=== PATIENT | female | born 1955 | race Two or more races ===

== ENCOUNTER → 2024-09-18 | Outpatient (CLI) | payer OTHER, MEDICAID, SELFPAY | END | disposition home or self-care (01) | PROVIDERS: PCP Family Medicine; Referring Provider Family Medicine; Visit Provider Student in an Organized Health Care Education/Training Program | DX: L97.512 Non-pressure chronic ulcer of other part of right foot with fat layer exposed (principal); L89.624 Pressure ulcer of left heel, stage 4; S91.104D Unspecified open wound of right lesser toe(s) without damage to nail, subsequent encounter; X58.XXXD Exposure to other specified factors, subsequent encounter; E11.52 Type 2 diabetes mellitus with diabetic peripheral angiopathy with gangrene; M86.8X7 Other osteomyelitis, ankle and foot; G20.A1 Parkinson's disease without dyskinesia, without mention of fluctuations; I73.9 Peripheral vascular disease, unspecified; Z89.421 Acquired absence of other right toe(s) | CPT/HCPCS: 11044; A9270 ==

== ENCOUNTER → 2024-10-09 | Outpatient (CLI) | payer OTHER, MEDICAID, SELFPAY | END | disposition home or self-care (01) | LOC: SWHD 08:31 | PROVIDERS: PCP Family Medicine; Referring Provider Family Medicine; Visit Provider Student in an Organized Health Care Education/Training Program | DX: L89.624 Pressure ulcer of left heel, stage 4 (principal); S91.104D Unspecified open wound of right lesser toe(s) without damage to nail, subsequent encounter; X58.XXXD Exposure to other specified factors, subsequent encounter; E11.52 Type 2 diabetes mellitus with diabetic peripheral angiopathy with gangrene; I10 Essential (primary) hypertension; M86.8X7 Other osteomyelitis, ankle and foot; G20.A1 Parkinson's disease without dyskinesia, without mention of fluctuations; I73.9 Peripheral vascular disease, unspecified; Z89.421 Acquired absence of other right toe(s) | CPT/HCPCS: 11044; A9270 ==

== ENCOUNTER → 2024-10-16 | Outpatient (CLI) | payer OTHER, MEDICAID, SELFPAY | END | disposition home or self-care (01) | PROVIDERS: PCP Family Medicine; Referring Provider Family Medicine; Visit Provider Student in an Organized Health Care Education/Training Program | DX: L89.624 Pressure ulcer of left heel, stage 4 (principal); S91.104D Unspecified open wound of right lesser toe(s) without damage to nail, subsequent encounter; X58.XXXD Exposure to other specified factors, subsequent encounter; E11.52 Type 2 diabetes mellitus with diabetic peripheral angiopathy with gangrene; I10 Essential (primary) hypertension; M86.8X7 Other osteomyelitis, ankle and foot; G20.A1 Parkinson's disease without dyskinesia, without mention of fluctuations; I73.9 Peripheral vascular disease, unspecified; Z89.421 Acquired absence of other right toe(s) | CPT/HCPCS: 11042; A9270 ==

== ENCOUNTER 2024-10-20 09:45 | Day surgery (SDC) | payer OTHER, MEDICAID, SELFPAY ==
--- NOTE | 2024-10-19 07:00 | EKG_ITS ---
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
[2024-10-19 08:31] VITALS: BMI 23.7
[2024-10-19 10:31] LABS: Collection Type, Urine Clean Catch
[2024-10-19 10:58] LABS: Basophils # (Auto) 0.1 Thou/mm3 (0.0-0.2); Basophils % (Auto) 1 % (0-2.5); Eosinophils # (Auto) 0.3 Thou/mm3 (0.0-0.5); Eosinophils % (Auto) 2 % (0-10); Hematocrit 33.2 % (36.0-46.0); Hemoglobin 10.2 g/dL (12.0-16.0); Immature Granulocytes % (Auto) 1 % (0-0); Immature Granulocytes Auto 0.12 Thou/mm3 (0.00-0.00); Lymphocytes % (Auto) 26 % (10-50); Mean Corpuscular HGB Conc 30.7 g/dl (31.0-37.0); Mean Corpuscular Hemoglobin 26.6 pg (25.0-35.0); Mean Corpuscular Volume 87 fL (80-100); Monocytes # (Auto) 0.8 Thou/mm3 (0.0-0.8); Monocytes % (Auto) 7 % (0-12); Neutrophils # (Auto) 7.2 Thou/mm3 (1.8-7.7); Neutrophils % (Auto) 63 % (37-80); Nucleated Red Blood Cell % 0 /100 WBC (0); Platelet Count 493 Thou/mm3 (140-440); RDW Standard Deviation 63.5 fL (36.4-46.3); Red Blood Count 3.84 Miln/mm3 (4.00-5.20); White Blood Count 11.5 Thou/mm3 (3.6-11.0)
[2024-10-19 11:24] LABS: Alanine Aminotransferase < 7 U/L (10-49); Albumin, Serum 3.5 gm/dL (3.4-4.8); Albumin/Globulin Ratio 1.3 (1.2-2.2); Alkaline Phosphatase 121 U/L (46-116); Anion Gap 7 (7-16); Aspartate Amino Transferase 11 U/L (0-34); BUN/Creatinine Ratio 20 Ratio (12-20); Bilirubin,Total 0.2 mg/dL (0.3-1.2); Blood Urea Nitrogen 18 mg/dL (9-23); Calcium 8.7 mg/dL (8.3-10.6); Calcium (Corrected) 9.1 mg/dL (8.5-10.1); Carbon Dioxide 26.9 mMol/L (20.0-31.0); Chloride 105 mMol/L (98-107); Creatinine (Component) 0.9 mg/dL (0.6-1.3); Estimated Creatinine Clearance 48.1 mL/min (>60); Globulin 2.8 gm/dL (2.3-3.5); Glucose 100 mg/dL (74-106); Osmolality,Calculated 279 (275-295); Potassium 3.7 mMol/L (3.4-5.1); Sodium 139 mMol/L (136-145); Total Protein 6.3 gm/dL (5.7-8.2); eGFR > 60 See Note
[2024-10-19 12:12] LABS: Bacteria,Urine 1+; Bilirubin,Urine Negative (Negative); Blood,Urine 1+ (Negative); Budding Yeast,Urine Present; Color,Urine Yellow (Lt Yel-Yel); Glucose, Urine Negative (Negative); Hyaline Casts,Urine < 1 /hpf (0-1); Ketones,Urine Negative (Negative); Leukocyte Esterase,Urine Positive (Negative); Nitrite,Urine Negative (Negative); PH,Urine 6.5 (5.0-7.0); Protein,Urine 1+ (Neg - Trace); RBC,Urine 19 /hpf (0-3); Specific Gravity,Urine 1.018 (1.001-1.035); Squamous Epithelial Cell,Urine 3 /hpf (0-5); Urobilinogen,Urine Negative mg/dL (0.0-1.0); WBC,Urine 648 /hpf (0-5)
[2024-10-19 12:19] LABS: Clarity,Urine Hazy (Clear/Hazy)
--- NOTE | 2024-10-19 15:12 | ESHP_ITS ---
RE: KEO KIRAN : 1955 DATE OF ADMISSION: 10/23/2024 HISTORY OF PRESENT ILLNESS: The patient is a 69-year-old female. She has a left ureteral stent in place. She has a 6 mm stone in the left ureter. She is a Slovenian-speaking female and she had a stone in the left ureter. She had a stent placed in [place]. PAST SURGICAL HISTORY: She had a hernia operation in the past, stomach operation in the past, and left breast surgery for a mass. SOCIAL HISTORY: She has 2 children. ALLERGIES: NONE KNOWN. PAST MEDICAL HISTORY: She has a history of diabetes mellitus and history of hypertension. LABORATORY DATA: Her serum creatinine is 0.9. A KUB film revealed left ureteral stent with a 6 mm stone in the upper part of the left ureter. MEDICATIONS: She takes: 1. Statin medication. 2. Januvia. 3. Metformin. 4. Sinemet. 5. Cymbalta. 6. Thyroid medication. 7. Pantoprazole. PHYSICAL EXAMINATION: HEENT: Normal. NECK: Supple. LUNGS: Clear. HEART: Sounds are normal. ABDOMEN: Soft without any organomegaly. No guarding. No rigidity. EXTREMITIES: Normal. IMPRESSION: 1. Left ureteral stone. 2. Left ureteral stent. PLAN: ESWL for left upper ureteral 6 mm stone. Planned procedure, risks and complications have been discussed with the patient. The patient understood them and agreed to proceed. DT: 12:21:05 TT: 15:11:00 Ref: [id number] - TID: [id number]
--- NOTE | 2024-10-20 06:00 | XR_ITS ---
Examination: Abdomen AP single view Technique: AP portable supine abdomen, single view Exam date and time: October 20, 2024 1038 hours INDICATIONS: Preop lithotripsy for kidney stones FINDINGS: Left ureteral stent satisfactory position Abundant stool overlies the kidneys Assessment for renal calculi difficult Prominent osteopenia IMPRESSION: Left ureteral stent satisfactory position
[2024-10-20 10:08] VITALS: BP 144/58; PULSE 58; RESP 14; TEMP 36.2; O2SAT 99; BMI 23.4
--- NOTE | 2024-10-20 10:50 | CHAP ---
Patient expressed gratitude for prayer before their procedure.
--- NOTE | 2024-10-20 13:00 | SUR.PREOP ---
C/O chest pain per Roseline BAEZA. Pt's states she has acid reflux that causes her chest pain. Patient points to epigastric area when asked where her pain is located. Jacobo GREEN and Gertrude BAEZA made aware. Jacobo in to assess patient.
[2024-10-20 13:38] VITALS: BP 210/89; PULSE 65; RESP 12; TEMP 36.2; O2SAT 99
--- NOTE | 2024-10-20 13:38 | SUR.PHASEII ---
pt received from OR in recovery bay 1. pt case was cancelled due to abnormal v/s. pt awake and alert, breathing unlabored on room air. pt b/p elevated, c/o chest pain. report received from Jacobo GREEN and Gertrude BAEZA. Jacobo GREEN did not want to treat elevated blood pressure, Dr. Dahl did not want to admit pt. Was instructed to by Jacobo GREEN to discharge pt and take them to ER.
[2024-10-20 13:45] VITALS: BP 214/74; PULSE 61; RESP 14; TEMP 36.3; O2SAT 100
[2024-10-20 13:50] VITALS: BP 216/103; PULSE 75; RESP 15; TEMP 36.3; O2SAT 100
[2024-10-20 14:00] VITALS: BP 206/80; PULSE 66; RESP 12; TEMP 36.4; O2SAT 99
--- NOTE | 2024-10-20 14:20 | SUR.PHASEII ---
pt awake and alert, breathing unlabored on room air. pt has elevated b/p, c/o chest pain. pt able transfer to wheelchair. instructed to leave iv in after discharge by charge nurse Roseline. pt will be transferred to ER in wheelchair after d/c.
--- NOTE | 2024-10-20 20:46 | ESOP_ITS ---
RE: KEO KIRAN : 1955 DATE OF OPERATION: 10/20/2024 PREOPERATIVE DIAGNOSIS: Left renal stone. The patient has a left ureteral stent in place. POSTOPERATIVE DIAGNOSIS: Left renal stone. The patient has a left ureteral stent in place. INDICATION: The patient is a 69-year-old female who has a left renal stone about 6 mm in size. The patient had a left ureteral stent placed. She was brought into the operating room. At this point, the patient's screw down is Yo Cuevas, he was concerned about her blood pressure, which is 220 systolic. The patient had a history of some chest pain in the past and he was uncomfortable doing this case, so the case was canceled. The patient would be referred back to her primary care for better control of her blood pressure and possible cardiac clearance. DT: 13:46:01 TT: 20:45:00 Ref: [id number] - TID: [id number]
== END 2024-10-20 14:20 | disposition home or self-care (01) ==
PROVIDERS: Anesthesiology; PCP Nurse Practitioner Family; Referring Provider Surgery; Visit Provider Surgery
PROC: (CPT 50590; principal; 2024-10-20 11:15)
DX: N20.1 Calculus of ureter (principal); E11.9 Type 2 diabetes mellitus without complications; I10 Essential (primary) hypertension; Z53.9 Procedure and treatment not carried out, unspecified reason; Z01.810 Encounter for preprocedural cardiovascular examination
CPT/HCPCS: 50590; 36415; 74018; 80053; 81001; 85025; 93005; J2250; J2704; J3010; J3490; J1596

== ENCOUNTER 2024-10-20 14:26 | Emergency (ER) | payer OTHER, MEDICAID, SELFPAY ==
[2024-10-20 14:46] VITALS: BP 165/84; PULSE 80; RESP 18; TEMP 36.9; O2SAT 99; BMI 23.3
--- NOTE | 2024-10-20 14:51 | PD.EDADULT ---
ED General RME/HPI General Chief complaint: Chest Pain Stated complaint: HIGH B/P, CHEST PAIN , LEFT FOOT WOUND Time Seen by Provider: 10/20/24 14:42 Arrival date/time: 10/20/24 14:26 69-year-old female presents to the emergency department today patient was scheduled to have surgery today with Dr. Dahl patient reports she was found to have elevated blood pressure and therefore her surgery was canceled and she was sent to the ER for further evaluation. Patient reports no chest pain no shortness of breath no headache dizziness or weakness. Patient does report left foot pain because she has been unable to take her [place] today for her chronic left foot pain Limitations: no limitations Related Data Home Medications ?Medication ?Instructions ?Recorded ?Confirmed atorvastatin 10 mg tablet 10 mg PO QDAY 10/19/24 10/19/24 carvedilol 3.125 mg tablet 3.125 mg PO BID 10/19/24 10/19/24 duloxetine 20 mg capsule,delayed 20 mg PO DAILY 10/19/24 10/19/24 release sprinkle ferrous sulfate 325 mg (65 mg 325 mg PO QDAY 10/19/24 10/19/24 iron) tablet (Iron (ferrous sulfate)) gabapentin 600 mg tablet 600 mg PO BID 10/19/24 10/19/24 levodopa 100 mg tablet 100 mg PO TID 10/19/24 10/19/24 sitagliptin phosphate 25 mg tablet 25 mg PO QDAY 10/19/24 10/19/24 (Januvia) Previous Rx's ?Medication ?Instructions ?Recorded levothyroxine 88 mcg capsule 88 mcg PO QDAY #30 caps 12/03/23 metformin 1,000 mg tablet 1,000 mg PO BID #60 tabs 12/03/23 pantoprazole 40 mg tablet,delayed 40 mg PO QDAY #30 tabs 12/03/23 release (Protonix) Allergies Allergy/AdvReac Type Severity Reaction Status Date / Time No Known Allergies Allergy Verified 10/20/24 14:27 Review of Systems Review of Systems Systems Reviewed: All systems reviewed, normal except as documented Constitutional Constitutional: Reports system reviewed and no additional complaints, except as documented, Denies fever(s) and Denies headache(s) Eyes Eyes: Reports system reviewed and no additional complaints, except as documented and Denies blurry vision ENT Ears, Nose, Mouth, and Throat: Reports system reviewed and no additional complaints, except as documented, Denies headache(s), Denies nasal congestion and Denies nasal discharge Cardiovascular Cardiovascular: Reports system reviewed and no additional complaints, except as documented, Denies chest pain and Denies dyspnea Respiratory Respiratory: Reports system reviewed and no additional complaints, except as documented, Denies chest congestion, Denies cough and Denies dyspnea Gastrointestinal Gastrointestinal: Reports system reviewed and no additional complaints, except as documented and Denies abdominal pain Musculoskeletal Musculoskeletal: Reports system reviewed and no additional complaints, except as documented, Reports abnormal gait, Reports arthralgias and Denies deformity Integumentary/Breasts Skin/Breast: Reports system reviewed and no additional complaints, except as documented and Denies rash Neurologic Neurologic: Reports system reviewed and no additional complaints, except as documented, Reports as per HPI, Reports abnormal gait and Denies headache(s) Past Medical History Past Medical History NEUROLOGIC: Positive Neurological Disorders and Parkinson's Disease; Negative Seizures CARDIAC: Positive Cardiac Disorders, Hypercholesterolemia and Hypertension; Negative Angina, Coronary Artery Disease, Atherosclerotic Heart Disease or Congestive Heart Failure RESPIRATORY: Negative Chronic Obstructive Pulmonary Disease (COPD), Asthma, Pneumonia, Tuberculosis or Sleep Apnea GASTROINTESTINAL: Positive Gastrointestinal Disorders, Gastrointestinal Bleed and Gastroesophageal Reflux Disease; Negative Hepatitis GENITOURINARY: Positive Genitourinary Disorders and Kidney Stones; Negative Renal Disease REPRODUCTIVE: Positive Previous Pregnancies MUSCULOSKELETAL: Positive Musculoskeletal Disorders and Arthritis ENT: Positive Cataracts ENDOCRINE: Positive Endocrine Disorders, Diabetes Mellitus Type 2 and Hypothyroidism; Negative Diabetes Mellitus Type 1 HEMATOLOGIC: Positive Blood Disorders and Anemia; Negative Sickle Cell Disease PSYCHO/SOCIAL: Positive Depression and Anxiety OTHER HISTORY: Positive Hospitalization (Sepsis), Falls, Blood Transfusions, Chicken Pox and Measles; Negative Autoimmune Disease, Blood Transfusion Reaction, Anesthesia Reactions, Chemotherapy, Radiation Therapy or Cancer Family History FAMILY HISTORY: Positive Family Cardiac Disorders and Family Surgery; Negative Family Psychiatric Problems, Family Respiratory Disorders, Family Gastrointestinal Problems, Family Cancer or Family Anesthesia Reaction Surgical History SURGICAL: Positive Bowel Surgery (colon resection); Negative Cardiac Surgery, Coronary Artery Bypass Graft, Ear Surgery or Joint Replacement Social History SMOKING STATUS: Never smoker SECOND HAND EXPOSURE: No SUBSTANCE USE: does not use ED Exam General Limitations: Present no limitations General appearance: Present alert and in no apparent distress Head Head exam: Present atraumatic Eye Eye exam: Present normal appearance, PERRL and EOMI ENT ENT exam: Present normal exam, normal oropharynx and mucous membranes moist Neck Neck exam: Present normal inspection, full ROM and trachea midline Chest Chest inspection: Present normal inspection and symmetric chest wall rise Respiratory Respiratory exam: Present normal lung sounds bilaterally Cardiovascular Cardiovascular exam: Present regular rate, normal rhythm and normal heart sounds Abdominal Exam Abdominal exam: Present soft and normal bowel sounds Extremities Exam Extremities exam: Present full ROM, tenderness, normal capillary refill and other (Left foot pain); Absent joint swelling Back Exam Back exam: Present normal inspection and full ROM Neurological Exam Neurological exam: Present alert, oriented X3 and CN II-XII intact Psychiatric Psychiatric exam: Present normal affect and normal mood Skin Skin exam: Present warm, dry and other (Wound left foot) Course Quality Measures none Orders Category Date Time Status HYDROcodone*/APAP 5/325 [Anamosa 5/325] Med 10/20/24 14:51 Discontinued 1 tab PO X1 ONE Ketorolac Inj [Toradol Inj] Med 10/20/24 14:51 Discontinued 30 mg IVP X1 ONE Vital Signs Vital signs: Vital Signs Temperature 98.5 F 10/20/24 14:46 Pulse Rate 80 10/20/24 14:46 Respiratory Rate 18 10/20/24 14:46 Blood Pressure 165/84 H 10/20/24 14:46 Pulse Oximetry (%) 99 10/20/24 14:46 Oxygen Delivery Method Room Air 10/20/24 14:46 O2 saturation 99% room air within normal limits MDM Patient data External records reviewed:: [facility] previous records Clinical information provided by:: patient Social determinants that could affect healthcare access:: none Patient has the following chronic illnesses:: See history How is presenting disease/condition affected by chronic disease/condition?: caused by Evaluation data The following diagnostics were reviewed and interpreted by me:: other (specify) (N/A) Lab and/or radiology exams considered but not ordered:: Consider not ordered Interpretation Summary: N/A Medications Medications considered but not ordered:: Given Medication administrations:: Medication Administration History Discontinued Medications Hydrocodone Bitart/Acetaminophen (Hydrocodone/Apap 5/325 Tablet) 1 tab PO X1 ONE Stop: 10/20/24 14:52 Last Admin: 10/20/24 14:58 Dose: 1 tab Documented By: RD Ketorolac Tromethamine (Ketorolac Inj 30 Mg/Ml Vial) 30 mg IVP X1 ONE Stop: 10/20/24 14:52 Last Admin: 10/20/24 14:58 Dose: 30 mg Documented By: RD Given Consultations Consultation(s) initiated? (list below): No Diagnosis Differential Diagnosis ED Complaint MDM: Elevated blood pressure, osteomyelitis, cellulitis Most likely diagnosis given after review of the tests above:: Foot pain chronic Admission Indicated Admission indicated?: not indicated Explain why admission is indicated or not indicated:: No criteria Admission Request Was there a request for admission?: No Disposition Plan Disposition Plan: Discharge Discharge Attestation Discharge Attestation: The patient and all family members were given an opportunity to ask questions and understood the discharge instructions. Discharge instructions specifically effects, indications for sooner follow up or return to the emergency department, and the expected course of current diagnosis. Patient condition: Stable Medical Decision Making MDM Narrative MDM Narrative: 69-year-old female presents to the emergency department today patient was scheduled to have surgery today with Dr. Dahl patient reports she was found to have elevated blood pressure and therefore her surgery was canceled and she was sent to the ER for further evaluation. Patient reports no chest pain no shortness of breath no headache dizziness or weakness. Patient does report left foot pain because she has been unable to take her [place] today for her chronic left foot pain On exam patient well-appearing patient is sad as she is unable to have her surgery and patient reports left foot pain as she has been unable to take her pain medication today I did ask the charge nurse to contact the surgical department as the patient's blood pressure is not dangerously high patient's blood pressure 165/84 they stated that her surgery was canceled Patient given a dose of pain medication and discharged home Patient reports she will follow-up with her specialist for her foot Patient discharged home in no distress to follow-up with primary care doctor in the next 24 to 48 hours and for any worsening symptoms to return to the ER immediately Differential Diagnosis Differential Diagnosis: Elevated blood pressure, osteomyelitis, cellulitis Medical Records Medical records reviewed: Yes I reviewed the patient's medical records. Discharge Plan Plan Patient Disposition: HOME (Self Care) Disposition Comment: Stable Prescriptions/Referrals Prescriptions/Med Rec: No Action pantoprazole [Protonix] 40 mg tablet,delayed release (DR/EC) 40 mg PO QDAY Qty: 30 0RF metformin 1,000 mg tablet 1,000 mg PO BID Qty: 60 0RF levothyroxine 88 mcg capsule 88 mcg PO QDAY Qty: 30 0RF gabapentin 600 mg Tablet 600 mg PO BID atorvastatin 10 mg Tablet 10 mg PO QDAY carvedilol 3.125 mg tablet 3.125 mg PO BID ferrous sulfate [Iron (ferrous sulfate)] 325 mg (65 mg iron) Tablet 325 mg PO QDAY Januvia 25 mg Tablet 25 mg PO QDAY duloxetine 20 mg Capsule, Delayed Rel Sprinkle 20 mg PO DAILY levodopa 100 mg Tablet 100 mg PO TID Problem List Clinical Impression: Chronic pain Patient/Caregiver Discharge Instructions Education Materials: ED Chronic Pain Additional Instructions: Please follow up with your primary care doctor in the next 24-48hrs for any worsening symptoms return here immediately Print Language: Beninese Stand Alone Forms: Marilyn Award Info., Patient Portal Info Letter PA/[employer] Supervising Physician PA/[employer] Supervising Physician: Dr. todd
[2024-10-20] MEDS: HYDROcodone/APAP 5/325 TABLET 1 TAB PO (14:58)
[2024-10-20] MEDS: KETOROLAC INJ 30 MG/ML VIAL IVP (14:58)
== END 2024-10-20 15:15 | disposition home or self-care (01) ==
LOC: SERX 15:30
PROVIDERS: Emergency Provider Emergency Medicine; PCP Nurse Practitioner Family
DX: G89.29 Other chronic pain (principal)
CPT/HCPCS: 96374; 99284; J1885; A9270

== ENCOUNTER → 2024-10-23 | Outpatient (CLI) | payer OTHER, MEDICAID, SELFPAY | END | disposition home or self-care (01) | LOC: SWHD 08:40 | PROVIDERS: PCP Family Medicine; Referring Provider Family Medicine; Visit Provider Surgery | DX: L89.624 Pressure ulcer of left heel, stage 4 (principal); S91.104D Unspecified open wound of right lesser toe(s) without damage to nail, subsequent encounter; X58.XXXD Exposure to other specified factors, subsequent encounter; E11.52 Type 2 diabetes mellitus with diabetic peripheral angiopathy with gangrene; I10 Essential (primary) hypertension; M86.8X7 Other osteomyelitis, ankle and foot; G20.A1 Parkinson's disease without dyskinesia, without mention of fluctuations; I73.9 Peripheral vascular disease, unspecified; Z89.421 Acquired absence of other right toe(s) | CPT/HCPCS: 11042; A9270 ==

== ENCOUNTER 2024-10-29 04:05 | Inpatient (IN) | payer OTHER, MEDICAID, MEDICARE, SELFPAY ==
[2024-10-29] VITALS (11 sets, daily range): BP systolic 142–209; BP diastolic 54–109; PULSE 70–89; RESP 14–18; TEMP 36.2–37.1; O2SAT 96–100
--- NOTE | 2024-10-29 04:09 | EKG_ITS ---
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: : 1955 Requested By: ED Temporary Provider Order Number: [id number] Reading MD: ED Temporary Provider Measurements Intervals [place] Rate: 85 P: 29 [place]: 143 QRS: -72 QRSD: 129 T: -2 QT: 391 QTc: 468 Interpretive Statements SINUS RHYTHM RIGHT BUNDLE BRANCH BLOCK [120+ ms QRS DURATION, UPRIGHT V1, 40+ ms S IN I/aVL/V4/V5/V6] LEFT ANTERIOR FASCICULAR BLOCK [QRS AXIS <= -45, QR IN I, RS IN II] POSSIBLE ANTERIOR MYOCARDIAL INFARCTION , PROBABLY OLD [30 ms Q WAVE IN V3/V4, OR R < 0.2 mV IN V4] Compared to ECG 10/19/2024 09:20:02 Myocardial infarct finding now present /store/S0/[id number]/[id number].pdf
--- NOTE | 2024-10-29 04:28 | XR_ITS ---
Examination: AP lateral chest 2 views Technique one AP lateral upright chest 2 views Exam date and time: October 29, 2024 0438 hrs. Comparison 08/14/2024 Indications: Onset chest pain today Findings: Normal heart size Minor atelectasis in the right middle lobe No pneumonia or pulmonary edema Impression: Minor atelectasis right middle lobe
--- NOTE | 2024-10-29 04:30 | PD.EDRME ---
Rapid Medical Screening Exam RME Arrival date/time: 10/29/24 04:05 69-year-old female presents emergency department complaining of left-sided chest pain. Chief Complaint: Chest Pain Vital signs: Vital Signs Temperature 98.4 F 10/29/24 04:21 Pulse Rate 80 10/29/24 04:21 Respiratory Rate 18 10/29/24 04:21 Blood Pressure 199/65 H 10/29/24 04:21 Pulse Oximetry (%) 98 10/29/24 04:21 Oxygen Delivery Method Room Air 10/29/24 04:21 Vital signs reviewed by provider: Yes
[2024-10-29] MEDS: hydrALAZINE INJ 20 MG/ML VIAL 10 MG IV (05:18)
--- NOTE | 2024-10-29 05:19 | PD.EDABDPN ---
ED Abdominal Pain RME/HPI General Chief Complaint: Chest Pain Stated complaint: CHEST PAIN X 2 DAYS Time seen by provider: 10/29/24 05:17 Arrival date/time: 10/29/24 04:05 Source: patient Mode of arrival: ambulatory Limitations: no limitations RME / HPI RME / HPI narrative: DR TRINIDAD MAIN ED EVALUATION: 69-year-old female patient complaining of epigastric/substernal abdominal pain radiating to the right. She states she took a [place] prior to coming for the wound on her foot and her pain has nearly resolved. Related Data Home Medications ?Medication ?Instructions ?Recorded ?Confirmed atorvastatin 10 mg tablet 10 mg PO QDAY 10/19/24 10/19/24 carvedilol 3.125 mg tablet 3.125 mg PO BID 10/19/24 10/19/24 duloxetine 20 mg capsule,delayed 20 mg PO DAILY 10/19/24 10/19/24 release sprinkle ferrous sulfate 325 mg (65 mg 325 mg PO QDAY 10/19/24 10/19/24 iron) tablet (Iron (ferrous sulfate)) gabapentin 600 mg tablet 600 mg PO BID 10/19/24 10/19/24 levodopa 100 mg tablet 100 mg PO TID 10/19/24 10/19/24 sitagliptin phosphate 25 mg tablet 25 mg PO QDAY 10/19/24 10/19/24 (Januvia) Previous Rx's ?Medication ?Instructions ?Recorded levothyroxine 88 mcg capsule 88 mcg PO QDAY #30 caps 12/03/23 metformin 1,000 mg tablet 1,000 mg PO BID #60 tabs 12/03/23 pantoprazole 40 mg tablet,delayed 40 mg PO QDAY #30 tabs 12/03/23 release (Protonix) Allergies Allergy/AdvReac Type Severity Reaction Status Date / Time No Known Allergies Allergy Verified 10/20/24 14:27 Review of Systems Review of Systems Systems Reviewed: All systems reviewed, normal except as documented Past Medical History Past Medical History NEUROLOGIC: Positive Neurological Disorders and Parkinson's Disease; Negative Seizures CARDIAC: Positive Cardiac Disorders, Hypercholesterolemia and Hypertension; Negative Angina, Coronary Artery Disease, Atherosclerotic Heart Disease or Congestive Heart Failure RESPIRATORY: Negative Chronic Obstructive Pulmonary Disease (COPD), Asthma, Pneumonia, Tuberculosis or Sleep Apnea GASTROINTESTINAL: Positive Gastrointestinal Disorders, Gastrointestinal Bleed and Gastroesophageal Reflux Disease; Negative Hepatitis GENITOURINARY: Positive Genitourinary Disorders, Renal Disease and Kidney Stones REPRODUCTIVE: Positive Previous Pregnancies MUSCULOSKELETAL: Positive Musculoskeletal Disorders and Arthritis ENT: Positive Cataracts ENDOCRINE: Positive Endocrine Disorders, Diabetes Mellitus Type 2 and Hypothyroidism; Negative Diabetes Mellitus Type 1 HEMATOLOGIC: Positive Blood Disorders and Anemia; Negative Sickle Cell Disease PSYCHO/SOCIAL: Positive Depression and Anxiety OTHER HISTORY: Positive Hospitalization, Falls, Blood Transfusions, Chicken Pox and Measles; Negative Autoimmune Disease, Blood Transfusion Reaction, Anesthesia Reactions, Chemotherapy, Radiation Therapy or Cancer Family History FAMILY HISTORY: Positive Family Cardiac Disorders and Family Surgery; Negative Family Psychiatric Problems, Family Respiratory Disorders, Family Gastrointestinal Problems, Family Cancer or Family Anesthesia Reaction Surgical History SURGICAL: Positive Bowel Surgery; Negative Cardiac Surgery, Coronary Artery Bypass Graft, Ear Surgery or Joint Replacement Social History SMOKING STATUS: Never smoker SECOND HAND EXPOSURE: No SUBSTANCE USE: does not use ED Exam Narrative Physical exam: GENERAL APPEARANCE: alert and oriented x 4, well-developed, well-nourished, no acute distress VITALS: All vitals were reviewed and the pulse ox is 95% on room air, which is normal according to my interpretation. HEENT: Normocephalic, atraumatic; pupils equal, round, reactive to light; EOMI; mucous membranes pink, moist; oropharynx clear NECK: Supple LUNGS: CTABL; no wheezes, no rales, no rhonchi HEART: Regular rate, regular rhythm; normal S1, S2; no murmurs ABDOMEN: non distended; normal BS; soft, no tenderness, no guarding, no rebound; no masses, no organomegaly, no hernia BACK: no CVA tenderness EXTREMITIES: atraumatic; no edema NEUROLOGIC: awake; alert and oriented x4; cranial nerves II-XII grossly intact; no focal sensory or motor deficits PSYCHIATRIC: appropriate mood and affect SKIN: warm, dry, normal color; no rashes General Limitations: Present no limitations Course Course Course Narrative: CXR ordered for determining etiology of chest pain. Quality Measures none Orders Category Date Time Status CT Screening NOW Care 10/29/24 05:20 Active EKG (ED ONLY) *Do not use* NOW Care 10/29/24 04:[address] foot RT w con Stat Exams 10/29/24 05:20 Ordered EKG (ED Only) Stat Exams 10/29/24 04:09 Draft XR chest 2V Stat Exams 10/29/24 04:28 Taken B-Type Natriuretic Peptide Stat Lab 10/29/24 05:02 Completed CBC Stat Lab 10/29/24 05:02 Results Comprehensive Metabolic Panel Stat Lab 10/29/24 05:02 Completed Drug Screen,Urine Stat Lab 10/29/24 04:28 Ordered Lipase Stat Lab 10/29/24 05:02 Completed Magnesium Stat Lab 10/29/24 05:02 Completed Partial Thromboplastin Time Stat Lab 10/29/24 05:02 Completed Prothrombin Time with INR Stat Lab 10/29/24 05:02 Completed Sed Rate (ESR) Stat Lab 10/29/24 05:02 Results Troponin I Stat Lab 10/29/24 05:02 Completed UA, C/S IF [Urinalysis, C/S if Indicated] Stat Lab 10/29/24 05:42 Ordered Urinalysis Stat Lab 10/29/24 04:28 Ordered Piper/Tazo 3.375 gm [Zosyn] Med 10/29/24 06:04 Active 3.375 gm in 50 ml IV X1 hydrALAZINE INJ [Apresoline Inj] Med 10/29/24 05:13 Discontinued 10 mg IV X1 ONE Vital Signs Vital signs: Vital Signs Temperature 98.4 F 10/29/24 04:21 Pulse Rate 80 10/29/24 04:21 Respiratory Rate 18 10/29/24 04:21 Blood Pressure 199/65 H 10/29/24 04:21 Pulse Oximetry (%) 98 10/29/24 04:21 Oxygen Delivery Method Room Air 10/29/24 04:21 Abdominal Pain MDM MDM Narrative MDM Narrative:: 0600 [facility]. Past medical, surgical, social and family history reviewed. Vitals and home medications reviewed. Results and treatment plan discussed. They will assume the care of the patient at this time and will follow the patient, pending CT and final dispo. Scribe Attestation: Diana Goodwin, am scribing for and in the presence of Dr. Trinidad. Provider Notation: Although this document has been carefully reviewed, there may still be some phonetic and other typographical errors. These errors are purely grammatical due to imperfections in the software program and should not be construed in any way to compromise the substance of the patient's medical care during this visit. Patient data External records reviewed:: [facility] previous records Clinical information provided by:: patient Social determinants that could affect healthcare access:: none Patient has the following chronic illnesses:: type 2 diabetes, Parkinson disease, hypertension, arthritis, hyperlipidemia, hypothyroidism, PAD, history of right second toe osteomyelitis associated with right second toe cellulitis, s/p right second toe tip amputation, recent GI bleeding, and anemia How is presenting disease/condition affected by chronic disease/condition?: uneffected by Evaluation data The following diagnostics were reviewed and interpreted by me:: lab results, radiology exam(s) and EKG tracing(s) Lab and/or radiology exams considered but not ordered:: none Interpretation Summary: I personally reviewed the CXR Medications / Prescriptions Medications or Prescriptions considered but not ordered:: none Medication administrations:: Medication Administration History Piperacillin/Tazobactam/Dextrose (Zosyn) 3.375 gm in 50 mls @ 100 mls/hr IV X1 ONE Stop: 10/29/24 06:33 Discontinued Medications Hydralazine HCl (Hydralazine Inj 20 Mg/Ml Vial) 10 mg IV X1 ONE Stop: 10/29/24 05:14 Last Admin: 10/29/24 05:18 Dose: 10 mg Documented By: DB as above Diagnosis Differential diagnosis abdominal pain: abdominal pain, constipation, diverticulitis, endometriosis and pancreatitis Admission Indicated Admission indicated?: not indicated (sign out) Admission Request Was there a request for admission?: No Disposition Plan Disposition Plan: other (specify) (sign out) Discharge Plan Prescriptions/Referrals Prescriptions/Med Rec: No Action pantoprazole [Protonix] 40 mg tablet,delayed release (DR/EC) 40 mg PO QDAY Qty: 30 0RF metformin 1,000 mg tablet 1,000 mg PO BID Qty: 60 0RF levothyroxine 88 mcg capsule 88 mcg PO QDAY Qty: 30 0RF gabapentin 600 mg Tablet 600 mg PO BID atorvastatin 10 mg Tablet 10 mg PO QDAY carvedilol 3.125 mg tablet 3.125 mg PO BID ferrous sulfate [Iron (ferrous sulfate)] 325 mg (65 mg iron) Tablet 325 mg PO QDAY Januvia 25 mg Tablet 25 mg PO QDAY duloxetine 20 mg Capsule, Delayed Rel Sprinkle 20 mg PO DAILY levodopa 100 mg Tablet 100 mg PO TID Referrals: Armen Taylor MD [Primary Care Provider] - In 1 week Patient/Caregiver Discharge Instructions Print Language: Lithuanian
[2024-10-29 05:29] LABS: Basophils # (Auto) 0.1 Thou/mm3 (0.0-0.2); Basophils % (Auto) 1 % (0-2.5); Eosinophils # (Auto) 0.1 Thou/mm3 (0.0-0.5); Eosinophils % (Auto) 1 % (0-10); Hematocrit 37.9 % (36.0-46.0); Immature Granulocytes % (Auto) 3 % (0-0); Immature Granulocytes Auto 0.49 Thou/mm3 (0.00-0.00); Lymphocytes # (Auto) 2.9 Thou/mm3 (1.0-4.8); Lymphocytes % (Auto) 19 % (10-50); Mean Corpuscular HGB Conc 31.7 g/dl (31.0-37.0); Mean Corpuscular Hemoglobin 26.5 pg (25.0-35.0); Mean Corpuscular Volume 84 fL (80-100); Monocytes # (Auto) 0.7 Thou/mm3 (0.0-0.8); Monocytes % (Auto) 5 % (0-12); Neutrophils % (Auto) 72 % (37-80); Nucleated Red Blood Cell % 0 /100 WBC (0); Platelet Count 562 Thou/mm3 (140-440); RDW Standard Deviation 55.4 fL (36.4-46.3); Red Blood Count 4.52 Miln/mm3 (4.00-5.20); White Blood Count 15.4 Thou/mm3 (3.6-11.0)
[2024-10-29 05:41] LABS: Partial Thromboplastin Time 29.3 Seconds (22.0-36.0); Prothrombin Time 10.8 Seconds (9.0-12.2)
[2024-10-29 05:49] LABS: B-Type Natriuretic Peptide 137 pg/mL (0-100)
[2024-10-29 05:50] LABS: Alanine Aminotransferase 14 U/L (10-49); Albumin/Globulin Ratio 1.1 (1.2-2.2); Alkaline Phosphatase 152 U/L (46-116); Anion Gap 8 (7-16); Aspartate Amino Transferase 12 U/L (0-34); BUN/Creatinine Ratio 18 Ratio (12-20); Bilirubin,Total < 0.2 mg/dL (0.3-1.2); Blood Urea Nitrogen 16 mg/dL (9-23); Carbon Dioxide 24.7 mMol/L (20.0-31.0); Chloride 103 mMol/L (98-107); Creatinine (Component) 0.9 mg/dL (0.6-1.3); Globulin 3.5 gm/dL (2.3-3.5); Glucose 152 mg/dL (74-106); Lipase 36 U/L (12-53); Magnesium 1.8 mg/dL (1.6-2.6); Osmolality,Calculated 276 (275-295); Potassium 4.2 mMol/L (3.4-5.1); Sodium 136 mMol/L (136-145); Total Protein 7.5 gm/dL (5.7-8.2); Troponin I < 0.020 ng/mL (0.0-0.045); eGFR > 60 See Note
[2024-10-29] MEDS: PIPER/TAZO 3.375 GM 3.375 GM/50 ML BAG IV ×3 (06:15→21:04)
[2024-10-29 06:24] LABS: Sed Rate (ESR) > 130 mm/hr (0-30)
--- NOTE | 2024-10-29 07:16 | XR_ITS ---
Examination: CT left foot with intravenous contrast, 2-D sagittal reconstructions. 2-D coronal reconstructions. 3-D reconstructions. Date and time of exam:October 29, 2024 0725 hrs. Indications: Left foot heel swelling and pain several days, diabetic CTDI: vol (mGy):4.03 DLP: (mGycm):95.8 Technique: Multiple 1.25 mm axial sections of the 60 cc Isovue-370 have been obtained. 2-D sagittal and coronal reconstructions have been obtained. 3-D reconstructions have been obtained. Low dose protocols were performed. One or more of the following dose reduction techniques were used; automated exposure control, adjustment of the mA and/or KV according to patient size, use of iterative reconstruction technique. Findings: Severe osteopenia Soft tissue infection with air density plantar surface of the calcaneus Suspicious for early cortical bone destruction plantar posterior surface of the calcaneus sagittal image 39 Small plantar posterior bony calcaneal spurs Soft tissue vascular calcification No fracture No opaque foreign body Impression: Soft tissue infection with air density plantar aspect of the calcaneus Suspicious for early osteomyelitis plantar posterior surface of the calcaneus Consider MRI foot without contrast follow-up
[2024-10-29 07:36] LABS: Collection Type, Urine Clean Catch; Squamous Epithelial Cell,Urine 0 /hpf (0-5)
[2024-10-29 08:06] LABS: Bacteria,Urine 2+; Bilirubin,Urine Negative (Negative); Blood,Urine Negative (Negative); Budding Yeast,Urine Present; Clarity,Urine Clear (Clear/Hazy); Color,Urine Lt-Yellow (Lt Yel-Yel); Glucose, Urine Negative (Negative); Ketones,Urine Negative (Negative); Leukocyte Esterase,Urine Positive (Negative); Nitrite,Urine Negative (Negative); PH,Urine 6.5 (5.0-7.0); Protein,Urine Negative (Neg - Trace); RBC,Urine 3 /hpf (0-3); Specific Gravity,Urine 1.007 (1.001-1.035); Urobilinogen,Urine Negative mg/dL (0.0-1.0); WBC,Urine 32 /hpf (0-5)
[2024-10-29 08:17] LABS: Amphetamine/Methamp Scrn,U Negative (Negative); Barbiturate Screen,Urine Negative (Negative); Benzodiazepines Screen,Urine Negative (Negative); Benzoylecgonine Screen, Ur Negative (Negative); Fentanyl Screen,Urine Negative (Negative); Opiate Screen,Urine Positive (Negative); THC Screen,Urine Negative (Negative)
--- NOTE | 2024-10-29 09:50 | EDNOTE_ITS ---
Emergency Room Addendum Addendum Narrative: The patient was signed out to me from Dr. TRINIDAD at 6:00 this morning pending the ESR and CT of the left foot. She said she is not convinced about the chest pain. She think that it is noncardiac. Her EKG was negative according to Dr. TRINIDAD and troponin was also negative according Dr. TRINIDAD. Dr. TRINIDAD is more concerned about the patient left heel ulcer which she described as being deep and infected WBC count of 15,000. ESR is more than 130. [facility] [address] [place] [address] [place] [facility] Report Signed Patient: KEO KIRAN. Record#: [id number] Birthdate: 1955 Age/Sex: 69 / F Location: [facility] Attending Dr: Ordering Physician: Bhupendra Rowe MD Date of Service: 10/29/24 Procedure(s): CT foot LT w con Accession Number(s): [id number] cc: Armen Taylor MD; Jag Henry MD; Bhupendra Rowe MD~ Examination: CT left foot with intravenous contrast, 2-D sagittal reconstructions. 2-D coronal reconstructions. 3-D reconstructions. Date and time of exam:October 29, 2024 0725 hrs. Indications: Left foot heel swelling and pain several days, diabetic CTDI: vol (mGy):4.03 DLP: (mGycm):95.8 Technique: Multiple 1.25 mm axial sections of the 60 cc Isovue-370 have been obtained. 2-D sagittal and coronal reconstructions have been obtained. 3-D reconstructions have been obtained. Low dose protocols were performed. One or more of the following dose reduction techniques were used; automated exposure control, adjustment of the mA and/or KV according to patient size, use of iterative reconstruction technique. Findings: Severe osteopenia Soft tissue infection with air density plantar surface of the calcaneus Suspicious for early cortical bone destruction plantar posterior surface of the calcaneus sagittal image 39 Small plantar posterior bony calcaneal spurs Soft tissue vascular calcification No fracture No opaque foreign body Impression: Soft tissue infection with air density plantar aspect of the calcaneus Suspicious for early osteomyelitis plantar posterior surface of the calcaneus Consider MRI foot without contrast follow-up Dictated By: Jag Henry MD Signed By: <Electronically signed by Jag Henry MD in OV> 10/29/24 0742 DD/ 0740 TD/TT: 10/29/24 07 We do not have MRI available today being Wednesday. 9:50 AM, I spoke to and discussed with Dr. Hester, orthopedics on-call. He wants lactic acid and CRP to be added. He is willing to consult on admission. He also suggest that I contact Dr. Callahan, general surgeon on-call and asked to consult as well. I therefore also spoke with Dr. Callahan general surgeon on-call and she is willing to consult on admission. I also spoke to and discussed with Dr. Eastman, hospitalist on-call. He agreed to admit the patient for further evaluation and treatment. At this point in time I am waiting for repeated troponin, lactic acid and CRP. Diagnosis: Calcaneus osteomyelitis Decubitus ulcer left heel Chest pain UTI Condition: Stable for admit
[2024-10-29 10:17] LABS: Lactate (Lactic Acid) 2.2 mMol/L (0.4-2.0)
[2024-10-29 10:53] LABS: C-Reactive Protein 7.9 mg/dL (0.0-0.9); Troponin I < 0.020 ng/mL (0.0-0.045)
[2024-10-29] MEDS: HYDROcodone/APAP 10/325 TAB PO (11:50)
--- NOTE | 2024-10-29 11:52 | XR_ITS ---
Examination: Abdomen sonogram, complete Date and time of exam: October 29, 2024 1934 hrs. Indications: Epigastric pain beginning 2 days ago. Technique: Multiple real-time grayscale transabdominal sonographic images of the abdomen have been obtained. Findings: Gallbladder sludge No gallstones Normal gallbladder wall Normal common bile duct 0.2 cm Pancreas obscured by bowel gas Aorta not enlarged Liver 14.1 cm lobular contour fatty infiltration no focal liver lesions Normal hepatopedal portal venous flow Patent IVC Right kidney 10.1 x 5.4 x 5.6 cm renal cortex 1.5 cm Left kidney 9.9 x 3.0 x 3.0 cm cortex 0.9 cm Moderate renal parenchymal scar formation Spleen 8.1 cm Impression: Gallbladder sludge Negative for cholelithiasis, negative for cholecystitis Suspect primary hepatocellular disease Bilateral renal cortical thinning Moderate bilateral renal parenchymal scar formation
[2024-10-29] MEDS: VANCOMYCIN/NS 1 GM IVPB 200 ML IV (11:58)
[2024-10-29] MEDS: ASPIRIN EC 81 MG TABEC PO (11:58)
--- NOTE | 2024-10-29 12:11 | PD.RESHP ---
Documentation for date of: 10/29/24 HPI History of Present Illness History of present illness: This is a 69-year-old female PMHx of HTN, T2DM, left foot osteomyelitis, and GERD presenting to the ED with chief complaint of 2 days of chest pain and left foot intractable pain. Chest pain describes more epigastric, worse on the left, nonradiating, dull, waxing and waning, not associated with eating, without associated N/V/D/C. Additionally, she sees wound clinic outpatient for left foot osteomyelitis, however, pain been worsening over the last week, rates it 10 out of 10 in severity. Denies headaches, fever, cardiogenic chest pain, chest pressure, shortness of breath, cough, abnormal bleeding, dysuria or hematuria. ED COURSE: BP 199/65, HR 80, satting 98% on room air with RR 18 WBC 15.4, Hgb 12, no coagulopathies, GLUCOSE 152, lactic acid 2.2 Normal AST/ALT/TB, ALP 152, CRP 7.9, BNP 137, troponins negative EKG sinus rhythm without ST changes, CXR mild atelectasis of right middle lobe Left foot CT soft tissue infection with air density, early osteomyelitis of plantar posterior surface of the calcaneus On exam, patient in acute distress secondary to pain. There was reproducible epigastric pain to palpation worse on the left. Left foot malodorous, dressing in place and intact, without signs of bleeding or active discharge. Patient admitted to med telemetry for intractable pain, hypertension and surgical evaluation of left foot. PMHx: As above PSHx: Abdominal ex lap for anastomotic site perforation Meds: Pending med rec's Allergies: No known allergies SH: Denies alcohol, tobacco or drug use Exam Vital Signs Temp Pulse Resp BP Pulse Ox O2 Del Method 98.5 F 89 16 170/94 H 100 Room Air 10/29/24 11:44 10/29/24 11:44 10/29/24 11:44 10/29/24 11:44 10/29/24 11:44 10/29/24 11:44 Narrative Exam GENERAL: Well-nourished normally. Adult male, who is in acute distress 2/2 pain HEENT: NCAT.?KAREL. Oral mucosa is moist. Patent Nares NECK: Supple, nontender, no thyromegaly, no meningismus, no JVD, no step offs CHEST: Symmetrical, atraumatic, and with equal expansion, Nontender on palpation no deformity and no crepitus. CARDIOVASCULAR: RRR, no m/g/r LUNGS: CTAB, no w/r/r. Symmetrical chest rise. No intercostal subcostal retraction. ABDOMEN: Soft, flat, nontender. No guarding/rebound tenderness/masses. +BS EXTREMITIES: Nontender.? No edema/cyanosis.?Moves all 4 extremities well, with full ROM and good CSM. Malodorous left foot, dressing intact, in place, without signs of active discharge or bleed SKIN: Warm and dry, no jaundice/rashes. MSK: No lumbar or midline, no CVA, no paraspinal muscle spasm or tenderness. NEURO: SCOTT x4, CN II-XII grossly intact.?No focal neurologic deficits. PSYCHIATRIC: Normal mood and affect, cooperative, no SI or HI or hallucinations. Results: Labs 10/29/24 05:02 10/29/24 05:02 Labs: Short CBC 10/29/24 Range/Units 05:02 WBC 15.4 H (3.6-11.0) Thou/mm3 Hgb 12.0 (12.0-16.0) g/dL Hct 37.9 (36.0-46.0) % Plt Count 562 H D (140-440) Thou/mm3 BMP 10/29/24 05:02 Sodium 136 Potassium 4.2 Chloride 103 Carbon Dioxide 24.7 BUN 16 Creatinine 0.9 Glucose 152 H Calcium 9.0 Cardiac Enzymes 10/29/24 10/29/24 Range/Units 05:02 10:06 Troponin I < 0.020 < 0.020 (0.0-0.045) ng/mL Liver Function 10/29/24 Range/Units 05:02 Total Bilirubin < 0.2 L (0.3-1.2) mg/dL AST 12 (0-34) U/L ALT 14 (10-49) U/L Alkaline Phosphatase 152 H (46-116) U/L Albumin 4.0 (3.4-4.8) gm/dL Urine 10/29/24 Range/Units 07:20 Urine Color Lt-Yellow (Lt Yel-Yel) Urine Clarity Clear (Clear/Hazy) Urine pH 6.5 (5.0-7.0) Ur Specific [place] 1.007 (1.001-1.035) Urine Protein Negative (Neg - Trace) Urine Glucose (UA) Negative (Negative) Quality Measures Quality Measures none Advance care planning discussed with:: patient Medications Home Medications and Allergies Home Medications ?Medication ?Instructions ?Recorded ?Confirmed ?Type atorvastatin 10 mg tablet 10 mg PO QDAY 10/19/24 10/19/24 History carvedilol 3.125 mg tablet 3.125 mg PO BID 10/19/24 10/19/24 History duloxetine 20 mg capsule,delayed 20 mg PO DAILY 10/19/24 10/19/24 History release sprinkle ferrous sulfate 325 mg (65 mg 325 mg PO QDAY 10/19/24 10/19/24 History iron) tablet (Iron (ferrous sulfate)) gabapentin 600 mg tablet 600 mg PO BID 10/19/24 10/19/24 History levodopa 100 mg tablet 100 mg PO TID 10/19/24 10/19/24 History sitagliptin phosphate 25 mg tablet 25 mg PO QDAY 10/19/24 10/19/24 History (Januvia) Allergies Allergy/AdvReac Type Severity Reaction Status Date / Time No Known Allergies Allergy Verified 10/20/24 14:27 Visit Medications Acetaminophen (Acetaminophen 325 Mg Tablet) 650 mg PO Q6H PRN PRN Reason: Fever >100.4 Stop: 11/28/24 10:01 Acetaminophen (Acetaminophen 325 Mg Tablet) 650 mg PO Q6HR PRN PRN Reason: Pain 1-3 Stop: 11/28/24 11:51 Carvedilol (Carvedilol 3.125 Mg Tablet) 3.125 mg PO BIDWM [facility] Stop: 11/28/24 17:29 Hydralazine HCl (Hydralazine Hcl 25 Mg Tablet) 25 mg PO Q8H PRN PRN Reason: SBP > 170 Stop: 11/28/24 10:01 Piperacillin/Tazobactam/Dextrose (Zosyn) 3.375 gm in 50 mls @ 12.5 mls/hr IV Q8HR [facility] Stop: 11/05/24 13:59 Morphine Sulfate (Morphine Sulf Inj 10 Mg/Ml Vial) 2 mg IVP Q4HR PRN PRN Reason: Pain 7-10 Stop: 11/03/24 11:55 Oxycodone/Acetaminophen (Oxycodone/Apap 5/325 Tablet) 1 tab PO Q6H PRN PRN Reason: PAIN SCALE 4-6 (Moderate Stop: 11/03/24 10:01 Pantoprazole Sodium (Pantoprazole Inj 40 Mg Vial) 40 mg IVP QDAY [place] Stop: 11/29/24 08:59 Pharmacy Consult (Vancomycin Pharmacy To Dose 1 Each Each) 1 each IV QDAY PRN PRN Reason: CONSULT Stop: 11/29/24 08:59 Discontinued Medications Acetaminophen (Acetaminophen 325 Mg Tablet) 650 mg PO Q6HR PRN PRN Reason: Pain 1-4 Stop: 11/28/24 11:51 Hydrocodone Bitart/Acetaminophen (Hydrocodone/Apap 10/325 Tab) 1 tab PO Q4HR PRN PRN Reason: PAIN SCALE 7-10 (Severe Stop: 11/03/24 10:01 Last Admin: 10/29/24 11:50 Dose: 1 tab Aspirin (Aspirin Ec 81 Mg Tabec) 81 mg PO X1 ONE Stop: 10/29/24 09:41 Last Admin: 10/29/24 11:58 Dose: 81 mg Hydralazine HCl (Hydralazine Inj 20 Mg/Ml Vial) 10 mg IV X1 ONE Stop: 10/29/24 05:14 Last Admin: 10/29/24 05:18 Dose: 10 mg Piperacillin/Tazobactam/Dextrose (Zosyn) 3.375 gm in 50 mls @ 100 mls/hr IV X1 ONE Stop: 10/29/24 06:33 Last Infusion: 10/29/24 06:50 Dose: Infused Vancomycin/Sodium Chloride (Vancomycin/Ns 1 Gm Ivpb) 200 mls @ 120 mls/hr IV X1 ONE Stop: 10/29/24 11:54 Last Admin: 10/29/24 11:58 Dose: 120 mls/hr Ibuprofen (Ibuprofen Tab 600 Mg Tablet) 600 mg PO Q6H PRN PRN Reason: PAIN SCALE 1-3 (mild Stop: 11/28/24 10:01 Labetalol HCl (Labetalol Inj 5 Mg/Ml Vial 20 Ml) 10 mg IVP X1 ONE Stop: 10/29/24 11:58 Assessment & Plan Plan In summary: 69-year-old female with PMHx of HTN, T2DM, left foot osteomyelitis and GERD presented to ED with worsening epigastric pain and intractable left foot pain. Admitted to med/tele for surgical evaluation and blood pressure control. # Hypertensive emergency Hx of HTN, admission BP 190/65, patient has lactic acidosis, denies cardiogenic chest pain Likely poorly controlled hypertension, worsened due to pain EKG sinus rhythm, no acute ST changes, troponin negative Pending med rec ? Gave one-time LABETALOL 10 mg IVP ? Started home CARVEDILOL 3.125 mg BID ? Started HYDRALAZINE 25 mg q.8h. for SBP greater than 170 ? Med/tele # Left foot osteomyelitis # T2DM History diabetes, no recent A1c on file, GLUCOSE 51 Has wound care for left foot ulcer, presenting with severe intractable pain 08/[address]: Soft tissue infection plantar aspect of calcaneus, suspected early osteomyelitis of plantar surface of calcaneus Currently afebrile, WBC 15.4, CRP 7.9 ? Consult general surgery and orthopedics ? Follow-up MRI left foot ? Started ZOSYN 3.325 q.8h. (08/29 to [present]) ? Started VANCOMYCIN pharmacy dosed (08/29 to [present]) ? Pain control ? INSULIN sliding scale ? Follow-up A1c ? Diabetic diet # Epigastric pain, unspecified # GERD Initially complained of chest pain however on examination, patient endorsing epigastric pain, worse in left upper quadrant. Pain reproducible on exam. History of GERD, on home OMEPRAZOLE ? Started PROTONIX 40 mg daily ? Ordered abdominal ultrasound Health maintenance Diet: CHO consistent GI prophylaxis: PROTONIX DVT prophylaxis: SCD Antibiotics: ZOSYN, VANCOMYCIN CODE STATUS: DNR Disposition: Pending surgery/ORTHO evaluation Patient case was discussed with attending, Dr. Jaren MD and senior residents Dr. Lawler and Dr. Colbert. Yassine Bernal DO PGYI Attending Provider Attestation/Addendum I have discussed and was present for the essential components of the history, physical examination, diagnosis, and treatment plan with the resident. I agree with the patient's care as documented by the resident and amended herein by me. Norbert Eastman DO. Patient seen and evaluated in the ED, in short, 69-year-old female with a significant past medical history of left foot calcaneal grade 3 ulcer, chronic osteomyelitis of the third distal metatarsal with draining sinus, ESBL Klebsiella bacteremia, 08/14/2024 hypertension, GERD, nephrolithiasis status post ureteral stent placement on 10/20/2024, hyperlipidemia, DM2, hypothyroidism who presented to the ED with complaints of chest pain and intractable left foot pain. Of note, patient follows with wound care, last debridement on 10/[address] Lomeli. Patient's foot wounds been present for approximately the last 2 months, apparently the patient does follow with vascular surgery and a repeat angiogram/angioplasty is planned at some point in the future. The patient's left foot calcaneal ulcer is thought to be caused by pressure with a combination of arterial insufficiency complicated by diabetes. Patient did complete a course of hyperbaric oxygen therapy. Her heel ulcer has required debridements weekly per chart review however it has failed to heal. In the ED, The patient the patient's blood pressure was elevated at 199/65 mmHg however the patient was afebrile, rest of the vitals were stable, patient saturating 98% on room air. WBC elevated 15.4, platelet count 562, absolute neutrophil count 11, normal INR, BN P largely unremarkable, CRP elevated at 7.9, troponin was negative, BNP 137. UA significant for an elevated WBC at 32, tox screen positive for opiates. Imaging: Left foot CT with contrast demonstrated a soft tissue infection with a air density plantar aspect of the calcaneus, suspicious for early or osteomyelitis plantar posterior surface of the calcaneus. Chest x-ray demonstrated minor atelectasis in the right middle lobe. SIGNIFICANT PROBLEM LIST/PLAN: #Cellulitis/osteomyelitis of the patient's left foot #Hypertensive urgency #Bilateral PAD #History of diabetes ? Continue Zosyn and vancomycin ? Orthopedic surgery consulted, appreciate recommendations ? General Surgery consulted at the recommendation of orthopedic surgery, appreciate recommendations ? Pain control, wound care on board ? A1c and lipid panel pending Dispo: Pending clinical course as well as specialist recommendations Although this document has been carefully reviewed, there may still be some phonetic and other typographical errors. These errors are purely grammatical due to imperfections in the software program and should not be construed in any way to compromise the substance of the patient's medical care during this visit.
[2024-10-29 13:16] LABS: Reflex Lactate? Y
[2024-10-29 14:02] LABS: Lactic Acid, 3 HR 1.3 mMol/L (0.4-2.0)
--- NOTE | 2024-10-29 15:31 | PC.CC ---
Pt Cathi Lao is a 69 yr old female admitted to hospitalist services for hypertensive emergency, left foot osteomyelitis. [employer] CL[employer] CC met with pt at bedside to complete initial assessment. At time of encounter pts Boby Lao [phone] is at bedside. PT expressed verbal consent for [employer] CC to proceed with assessment. Pt is noted to be alert and oriented to person, place and situation. Pt acknowledges admission orders. Pt able to confirm all demographic information. Pt is from [place] [id number] [facility], where she lives with her . Pt identifies her as surrogate DM. At baseline pt requires a standard walker, and wheel chair for support with ambulation. Pt reports requiring assist in completion of her ADLs. Pt does not require supplemental O2 in the home. Pt is insulin dependent diabetic. Pt is not on dialysis. Pt is followed by [facility], [facility] for primary care. At time of D/c pt reports she will return home, with her providing transport. Pt is a DNR status, Advace Directive not discussed at this time. Pt reports feeling safe in her home. Pt has access to food, and all working utilities in her home.
[2024-10-29] MEDS: carVEDILOL 3.125 MG TABLET PO (16:47)
[2024-10-29] MEDS: oxyCODONE/APAP 5/325 TABLET 1 TAB PO ×2 (16:47→22:39)
[2024-10-29] MEDS: INSULIN LISPRO (AdmeLOG) 1 UNIT/0.01 ML UNIT SC ×2 (16:48→20:51)
[2024-10-29 16:51] LABS: Cholesterol 137 mg/dL (132-200); HDL Cholesterol 46 mg/dL (40-60); LDL Cholesterol,Calculated 66 mg/dL (0-130); Triglycerides 124 mg/dL (30-150)
--- NOTE | 2024-10-29 19:50 | PD.ORTHCON ---
HPI Consult details Reason for consultation narrative: Pain left heel, abdominal pain History of present illness: Patient is a 69-year-old who was admitted on 10/29/2024 with epigastric pain and and left foot pain. It is now felt that her chest pain is not acute cardiac event. She is followed in the wound clinic for left foot osteomyelitis with increasing pain. Past Medical History Past Medical History NEUROLOGIC: Positive Neurological Disorders and Parkinson's Disease; Negative Seizures CARDIAC: Positive Cardiac Disorders, Hypercholesterolemia and Hypertension; Negative Angina, Coronary Artery Disease, Atherosclerotic Heart Disease or Congestive Heart Failure RESPIRATORY: Negative Respiratory Disorders, Chronic Obstructive Pulmonary Disease (COPD), Asthma, Pneumonia, Tuberculosis or Sleep Apnea GASTROINTESTINAL: Positive Gastrointestinal Disorders, Gastrointestinal Bleed and Gastroesophageal Reflux Disease; Negative Hepatitis GENITOURINARY: Positive Genitourinary Disorders, Renal Disease and Kidney Stones REPRODUCTIVE: Positive Previous Pregnancies MUSCULOSKELETAL: Positive Musculoskeletal Disorders and Arthritis ENT: Positive Cataracts ENDOCRINE: Positive Endocrine Disorders, Diabetes Mellitus Type 2 and Hypothyroidism; Negative Diabetes Mellitus Type 1 HEMATOLOGIC: Positive Blood Disorders and Anemia; Negative Sickle Cell Disease PSYCHO/SOCIAL: Positive Depression and Anxiety OTHER HISTORY: Positive Hospitalization, Falls, Blood Transfusions, Chicken Pox and Measles; Negative Autoimmune Disease, Blood Transfusion Reaction, Anesthesia Reactions, Chemotherapy, Radiation Therapy or Cancer Family History FAMILY HISTORY: Positive Family Cardiac Disorders and Family Surgery; Negative Family Psychiatric Problems, Family Respiratory Disorders, Family Gastrointestinal Problems, Family Cancer or Family Anesthesia Reaction Surgical History SURGICAL: Positive Bowel Surgery; Negative Cardiac Surgery, Coronary Artery Bypass Graft, Ear Surgery or Joint Replacement Social History SMOKING STATUS: Never smoker SECOND HAND EXPOSURE: No SUBSTANCE USE: does not use Meds Home Medications and Allergies Home Medications ?Medication ?Instructions ?Recorded ?Confirmed ?Type atorvastatin 10 mg tablet 10 mg PO QDAY 10/19/24 10/19/24 History carvedilol 3.125 mg tablet 3.125 mg PO BID 10/19/24 10/19/24 History duloxetine 20 mg capsule,delayed 20 mg PO DAILY 10/19/24 10/19/24 History release sprinkle ferrous sulfate 325 mg (65 mg 325 mg PO QDAY 10/19/24 10/19/24 History iron) tablet (Iron (ferrous sulfate)) gabapentin 600 mg tablet 600 mg PO BID 10/19/24 10/19/24 History levodopa 100 mg tablet 100 mg PO TID 10/19/24 10/19/24 History sitagliptin phosphate 25 mg tablet 25 mg PO QDAY 10/19/24 10/19/24 History (Roz) Allergies Allergy/AdvReac Type Severity Reaction Status Date / Time No Known Allergies Allergy Verified 10/20/24 14:27 Exam Vital Signs Temp Pulse Resp BP Pulse Ox O2 Del Method 97.1 F 82 17 166/54 H 96 Room Air 10/29/24 13:12 10/29/24 16:47 10/29/24 13:12 10/29/24 16:47 10/29/24 13:12 10/29/24 13:12 Blood pressure 166/50 Narrative Exam Patient is in special studies are not available to examine. Results - Ortho Labs 10/29/24 05:02 10/29/24 05:02 Labs: Short CBC 10/29/24 Range/Units 05:02 WBC 15.4 H (3.6-11.0) Thou/mm3 Hgb 12.0 (12.0-16.0) g/dL Hct 37.9 (36.0-46.0) % Plt Count 562 H D (140-440) Thou/mm3 BMP 10/29/24 05:02 Sodium 136 Potassium 4.2 Chloride 103 Carbon Dioxide 24.7 BUN 16 Creatinine 0.9 Glucose 152 H Calcium 9.0 Cardiac Enzymes 10/29/24 10/29/24 Range/Units 05:02 10:06 Troponin I < 0.020 < 0.020 (0.0-0.045) ng/mL Liver Function 10/29/24 Range/Units 05:02 Total Bilirubin < 0.2 L (0.3-1.2) mg/dL AST 12 (0-34) U/L ALT 14 (10-49) U/L Alkaline Phosphatase 152 H (46-116) U/L Albumin 4.0 (3.4-4.8) gm/dL Urine 10/29/24 Range/Units 07:20 Urine Color Lt-Yellow (Lt Yel-Yel) Urine Clarity Clear (Clear/Hazy) Urine pH 6.5 (5.0-7.0) Ur Specific [place] 1.007 (1.001-1.035) Urine Protein Negative (Neg - Trace) Urine Glucose (UA) Negative (Negative) White count 15,400, electrolytes within normal limits, Assessment & Plan Additional Assessment Additional comments: CT scan shows osteomyelitis left calcaneus. Plan Has diabetes and hypertension. Would recommend infectious disease consult tomorrow. Would recommend coverage for mixed infection very common in diabetics.
--- NOTE | 2024-10-29 20:00 | CONPN_ITS ---
Subjective Subjective Brief History: Patient is a 69-year-old who was admitted on 10/29/2024 with epigastric pain and and left foot pain. It is now felt that her chest pain is not acute cardiac event. She is followed in the wound clinic for left foot osteomyelitis with increasing pain. Narrative: Patient not available for exam Exam Vital Signs Temp Pulse Resp BP Pulse Ox O2 Del Method 97.1 F 82 17 166/54 H 96 Room Air 10/29/24 13:12 10/29/24 16:47 10/29/24 13:12 10/29/24 16:47 10/29/24 13:12 10/29/24 13:12 Blood pressure 166/54, temp 97.1 Narrative Exam Patient is not in room gone for further testing Objective - Ortho Labs 10/29/24 05:02 10/29/24 05:02 Labs: Laboratory Results - last 24 hr 10/29/24 10/29/24 10/29/24 05:02 07:20 10:06 WBC 15.4 H RBC 4.52 Hgb 12.0 Hct 37.9 MCV 84 MCH 26.5 MCHC 31.7 RDW Std Deviation 55.4 H Plt Count 562 H D Neut % (Auto) 72 Lymph % (Auto) 19 [place] % (Auto) 5 Eos % (Auto) 1 Baso % (Auto) 1 Neut # (Auto) 11.0 H Lymph # (Auto) 2.9 [place] # (Auto) 0.7 Eos # (Auto) 0.1 Baso # (Auto) 0.1 Immature Gran # (Auto) 0.49 H Absolute Nucleated RBC 0.00 Immature Gran % 3 H Nucleated RBC % 0 ESR > 130 H PT 10.8 INR 1.0 APTT 29.3 Sodium 136 Potassium 4.2 Chloride 103 Carbon Dioxide 24.7 Anion Gap 8 BUN 16 Creatinine 0.9 Estim Creat Clear Calc Not Performed. eGFR > 60 BUN/Creatinine Ratio 18 Glucose 152 H Calculated Osmolality 276 Lactic Acid 2.2 H Calcium 9.0 Corrected Calcium 9.0 Magnesium 1.8 Total Bilirubin < 0.2 L AST 12 ALT 14 Alkaline Phosphatase 152 H Troponin I < 0.020 < 0.020 C-Reactive Prot, Quant 7.9 H B-Natriuretic Peptide 137 H Total Protein 7.5 Albumin 4.0 Globulin 3.5 Albumin/Globulin Ratio 1.1 L Triglycerides 124 Cholesterol 137 LDL Cholesterol, Calc 66 HDL Cholesterol 46 Cholesterol/HDL Ratio 3.0 L Lipase 36 Ur Collection Type Clean Catch Urine Color Lt-Yellow Urine Clarity Clear Urine pH 6.5 Ur Specific [place] 1.007 Urine Protein Negative Urine Glucose (UA) Negative Urine Ketones Negative Urine Blood Negative Urine Nitrite Negative Urine Bilirubin Negative Urine Urobilinogen (Auto) Negative Ur Leukocyte Esterase Positive Urine RBC 3 Urine WBC 32 H Ur Squamous Epith Cells 0 Urine Bacteria 2+ A Urine Yeast (Budding) Present A Urine Opiates Screen Positive A Urine Fentanyl Screen Negative Ur Barbiturates Screen Negative U Amphetamin/Meth Scrn Negative U Benzodiazepines Scrn Negative U Cocaine Metab Screen Negative U Marijuana (THC) Screen Negative 10/29/24 13:44 WBC RBC Hgb Hct MCV MCH MCHC RDW Std Deviation Plt Count Neut % (Auto) Lymph % (Auto) [place] % (Auto) Eos % (Auto) Baso % (Auto) Neut # (Auto) Lymph # (Auto) [place] # (Auto) Eos # (Auto) Baso # (Auto) Immature Gran # (Auto) Absolute Nucleated RBC Immature Gran % Nucleated RBC % ESR PT INR APTT Sodium Potassium Chloride Carbon Dioxide Anion Gap BUN Creatinine Estim Creat Clear Calc eGFR BUN/Creatinine Ratio Glucose Calculated Osmolality Lactic Acid 1.3 Calcium Corrected Calcium Magnesium Total Bilirubin AST ALT Alkaline Phosphatase Troponin I C-Reactive Prot, Quant B-Natriuretic Peptide Total Protein Albumin Globulin Albumin/Globulin Ratio Triglycerides Cholesterol LDL Cholesterol, Calc HDL Cholesterol Cholesterol/HDL Ratio Lipase Ur Collection Type Urine Color Urine Clarity Urine pH Ur Specific [place] Urine Protein Urine Glucose (UA) Urine Ketones Urine Blood Urine Nitrite Urine Bilirubin Urine Urobilinogen (Auto) Ur Leukocyte Esterase Urine RBC Urine WBC Ur Squamous Epith Cells Urine Bacteria Urine Yeast (Budding) Urine Opiates Screen Urine Fentanyl Screen Ur Barbiturates Screen U Amphetamin/Meth Scrn U Benzodiazepines Scrn U Cocaine Metab Screen U Marijuana (THC) Screen White count 15,400, lactic acid 2.2, CRP 7.9 Assessment & Plan Assessment Additional comments: Osteomyelitis left heel. Would recommend infectious disease consult Dr Dhillon I will put it in. She is on vancomycin and Zosyn Plan Wound care nurse consult, start on Dakin's half-strength, MRI scan left foot and ankle in a.m. Documentation for date of: 10/29/24
--- NOTE | 2024-10-29 20:24 | ESCONSULT_ITS ---
Addendum Consultation Addendum Date of report being addended: 10/29/24 Narrative: Patient returned from special studies. I looked at the wound. 2-1/2 cm full- thickness malodorous ulcer. Culture taken. Dressing applied. I told her regarding an MRI scan tomorrow I told her it did not look good. I told her if the is infection is in the bone and with her age diabetes hypertension she may need a below-knee amputation. She had toes operated and removed by Dr. Noyola right foot this year.
[2024-10-29] MEDS: MORPHINE SULF INJ 10 MG/ML VIAL 2 MG IVP (20:50)
[2024-10-29] MEDS: MELATONIN 3 MG TABLET PO (20:51)
[2024-10-30] VITALS (8 sets, daily range): BP systolic 105–175; BP diastolic 61–76; PULSE 68–93; RESP 10–19; TEMP 36.1–36.6; O2SAT 94–99
[2024-10-30] MEDS: MORPHINE SULF INJ 10 MG/ML VIAL 2 MG IVP ×3 (01:06→10:44)
[2024-10-30 04:35] LABS: Collection Type, Urine Clean Catch
[2024-10-30 04:51] LABS: Bilirubin,Urine Negative (Negative); Blood,Urine Trace (Negative); Clarity,Urine Clear (Clear/Hazy); Color,Urine Lt-Yellow (Lt Yel-Yel); Glucose, Urine Negative (Negative); Ketones,Urine Negative (Negative); Leukocyte Esterase,Urine Positive (Negative); Nitrite,Urine Positive (Negative); PH,Urine 6.5 (5.0-7.0); Protein,Urine Trace (Neg - Trace); RBC,Urine 6 /hpf (0-3); Specific Gravity,Urine 1.026 (1.001-1.035); Squamous Epithelial Cell,Urine 1 /hpf (0-5); Urobilinogen,Urine Negative mg/dL (0.0-1.0); WBC,Urine 31 /hpf (0-5)
[2024-10-30] MEDS: PIPER/TAZO 3.375 GM 3.375 GM/50 ML BAG IV (05:00)
[2024-10-30 05:08] LABS: Culture Indicated,Urine Yes
[2024-10-30 06:28] LABS: Basophils # (Auto) 0.1 Thou/mm3 (0.0-0.2); Basophils % (Auto) 1 % (0-2.5); Eosinophils # (Auto) 0.3 Thou/mm3 (0.0-0.5); Eosinophils % (Auto) 3 % (0-10); Hematocrit 34.1 % (36.0-46.0); Hemoglobin 10.5 g/dL (12.0-16.0); Immature Granulocytes % (Auto) 3 % (0-0); Lymphocytes # (Auto) 2.2 Thou/mm3 (1.0-4.8); Lymphocytes % (Auto) 20 % (10-50); Mean Corpuscular HGB Conc 30.8 g/dl (31.0-37.0); Mean Corpuscular Hemoglobin 26.1 pg (25.0-35.0); Mean Corpuscular Volume 85 fL (80-100); Monocytes # (Auto) 0.7 Thou/mm3 (0.0-0.8); Monocytes % (Auto) 6 % (0-12); Neutrophils # (Auto) 7.9 Thou/mm3 (1.8-7.7); Neutrophils % (Auto) 69 % (37-80); Nucleated Red Blood Cell % 0 /100 WBC (0); Platelet Count 509 Thou/mm3 (140-440); RDW Standard Deviation 56.7 fL (36.4-46.3); Red Blood Count 4.02 Miln/mm3 (4.00-5.20); White Blood Count 11.4 Thou/mm3 (3.6-11.0)
[2024-10-30 06:50] LABS: Alanine Aminotransferase 10 U/L (10-49); Albumin, Serum 3.2 gm/dL (3.4-4.8); Albumin/Globulin Ratio 1.1 (1.2-2.2); Alkaline Phosphatase 117 U/L (46-116); Anion Gap 9 (7-16); Aspartate Amino Transferase 10 U/L (0-34); BUN/Creatinine Ratio 16 Ratio (12-20); Bilirubin,Total < 0.2 mg/dL (0.3-1.2); Blood Urea Nitrogen 13 mg/dL (9-23); Calcium 8.9 mg/dL (8.3-10.6); Calcium (Corrected) 9.5 mg/dL (8.5-10.1); Carbon Dioxide 24.8 mMol/L (20.0-31.0); Chloride 104 mMol/L (98-107); Creatinine (Component) 0.8 mg/dL (0.6-1.3); Globulin 2.9 gm/dL (2.3-3.5); Glucose 143 mg/dL (74-106); Magnesium 1.7 mg/dL (1.6-2.6); Osmolality,Calculated 277 (275-295); Phosphorous 4.5 mg/dL (2.4-5.1); Sodium 138 mMol/L (136-145); Total Protein 6.1 gm/dL (5.7-8.2); eGFR > 60 See Note
[2024-10-30 07:37] LABS: Glucose Estimated Average 140 mg/dL (80-131); Hemoglobin A1C 6.5 % Hgb (4.8-6.0)
[2024-10-30] MEDS: INSULIN LISPRO (AdmeLOG) 1 UNIT/0.01 ML UNIT SC ×3 (07:58→22:00)
[2024-10-30] MEDS: carVEDILOL 3.125 MG TABLET PO (08:08)
--- NOTE | 2024-10-30 08:21 | ESPR_ITS ---
Documentation for date of: 10/30/24 Subjective Subjective Interval history: No acute overnight events. Still having 8 out of 10 pain of left lower extremity. Denies fever, chills, headaches, chest pain, sob, cough, GI or urinary symptoms. Exam Vital Signs Temp Pulse Resp BP Pulse Ox O2 Del Method 97.2 F 76 17 175/69 H 99 Room Air 10/30/24 04:00 10/30/24 08:08 10/30/24 04:00 10/30/24 08:08 10/30/24 04:00 10/30/24 04:00 Narrative Exam GENERAL: Well-nourished normally. Adult male, who is in acute distress 2/2 pain HEENT: NCAT.?KAREL. Oral mucosa is moist. Patent Nares NECK: Supple, nontender, no thyromegaly, no meningismus, no JVD, no step offs CHEST: Symmetrical, atraumatic, and with equal expansion, Nontender on palpation no deformity and no crepitus. CARDIOVASCULAR: RRR, no m/g/r LUNGS: CTAB, no w/r/r. Symmetrical chest rise. No intercostal subcostal retraction. ABDOMEN: Soft, flat, nontender. No guarding/rebound tenderness/masses. +BS EXTREMITIES: Nontender.? No edema/cyanosis.?Moves all 4 extremities well, with full ROM and good CSM. Malodorous left foot, dressing intact, in place, without signs of active discharge or bleed SKIN: Warm and dry, no jaundice/rashes. MSK: No lumbar or midline, no CVA, no paraspinal muscle spasm or tenderness. NEURO: SCOTT x4, CN II-XII grossly intact.?No focal neurologic deficits. PSYCHIATRIC: Normal mood and affect, cooperative, no SI or HI or hallucinations. Objective Labs 10/31/24 04:04 10/31/24 04:04 Labs: Laboratory Results - last 24 hr 10/29/24 10/29/24 10/29/24 05:02 10:06 13:44 WBC RBC Hgb Hct MCV MCH MCHC RDW Std Deviation Plt Count Neut % (Auto) Lymph % (Auto) [place] % (Auto) Eos % (Auto) Baso % (Auto) Neut # (Auto) Lymph # (Auto) [place] # (Auto) Eos # (Auto) Baso # (Auto) Immature Gran # (Auto) Absolute Nucleated RBC Immature Gran % Nucleated RBC % Sodium Potassium Chloride Carbon Dioxide Anion Gap BUN Creatinine Estim Creat Clear Calc eGFR BUN/Creatinine Ratio Glucose Estimated Ave Glu mg/dL Hemoglobin A1c Calculated Osmolality Lactic Acid 2.2 H 1.3 Calcium Corrected Calcium Phosphorus Magnesium Total Bilirubin AST ALT Alkaline Phosphatase Troponin I < 0.020 C-Reactive Prot, Quant 7.9 H Total Protein Albumin Globulin Albumin/Globulin Ratio Triglycerides 124 Cholesterol 137 LDL Cholesterol, Calc 66 HDL Cholesterol 46 Cholesterol/HDL Ratio 3.0 L Ur Collection Type Urine Color Urine Clarity Urine pH Ur Specific [place] Urine Protein Urine Glucose (UA) Urine Ketones Urine Blood Urine Nitrite Urine Bilirubin Urine Urobilinogen (Auto) Ur Leukocyte Esterase Urine RBC Urine WBC Ur Squamous Epith Cells Urine Bacteria Ur Culture Indicated? 10/30/24 10/30/24 04:11 04:53 WBC 11.4 H RBC 4.02 Hgb 10.5 L Hct 34.1 L MCV 85 MCH 26.1 MCHC 30.8 L RDW Std Deviation 56.7 H Plt Count 509 H D Neut % (Auto) 69 Lymph % (Auto) 20 [place] % (Auto) 6 Eos % (Auto) 3 Baso % (Auto) 1 Neut # (Auto) 7.9 H Lymph # (Auto) 2.2 [place] # (Auto) 0.7 Eos # (Auto) 0.3 Baso # (Auto) 0.1 Immature Gran # (Auto) 0.30 H Absolute Nucleated RBC 0.00 Immature Gran % 3 H Nucleated RBC % 0 Sodium 138 Potassium 4.0 Chloride 104 Carbon Dioxide 24.8 Anion Gap 9 BUN 13 Creatinine 0.8 Estim Creat Clear Calc Not Performed. eGFR > 60 BUN/Creatinine Ratio [address] Glu mg/dL 140 H Hemoglobin A1c 6.5 H Calculated Osmolality 277 Lactic Acid Calcium 8.9 Corrected Calcium 9.5 Phosphorus 4.5 Magnesium 1.7 Total Bilirubin < 0.2 L AST 10 ALT 10 Alkaline Phosphatase 117 H D Troponin I C-Reactive Prot, Quant Total Protein 6.1 Albumin 3.2 L D Globulin 2.9 Albumin/Globulin Ratio 1.1 L Triglycerides Cholesterol LDL Cholesterol, Calc HDL Cholesterol Cholesterol/HDL Ratio Ur Collection Type Clean Catch Urine Color Lt-Yellow Urine Clarity Clear Urine pH 6.5 Ur Specific [place] 1.026 Urine Protein Trace Urine Glucose (UA) Negative Urine Ketones Negative Urine Blood Trace Urine Nitrite Positive Urine Bilirubin Negative Urine Urobilinogen (Auto) Negative Ur Leukocyte Esterase Positive Urine RBC 6 H Urine WBC 31 H Ur Squamous Epith Cells 1 Urine Bacteria None Ur Culture Indicated? Yes Quality Measures Quality Measures none Advance care planning discussed with:: patient Assessment & Plan Assessment Current Active Medications: Generic Name Dose Route Start Last Admin Trade Name Freq PRN Reason Stop Dose Admin Acetaminophen 650 mg 10/29/24 10:02 Acetaminophen 325 Mg Tablet PO 11/28/24 10:01 Q6H PRN Fever >100.4 Acetaminophen 650 mg 10/29/24 11:59 Acetaminophen 325 Mg Tablet PO 11/28/24 11:51 Q6HR PRN Pain 1-3 Carvedilol 3.125 mg 10/29/24 17:30 10/30/24 08:08 Carvedilol 3.125 Mg Tablet PO 11/28/24 17:29 3.125 mg BIDWM [place] Administration Dextrose 25 ml 10/29/24 12:31 Dextrose 50%-Water Inj 50 Ml Syringe IV 11/28/24 12:30 Q15MIN PRN BG 50-70 responsive npo pt Dextrose 50 ml 10/29/24 12:31 Dextrose 50%-Water Inj 50 Ml Syringe IV 11/28/24 12:30 Q15MIN PRN BG <50 OR BG <70 & pt unresponsive Glucagon 1 mg 10/29/24 12:31 Glucagon Inj 1 Mg Vial IM Q15MIN PRN BG <70, and no IV access Hydralazine HCl 25 mg 10/29/24 10:02 Hydralazine Hcl 25 Mg Tablet PO 11/28/24 10:01 Q8H PRN SBP > 170 Piperacillin/Tazobactam/Dextrose 3.375 gm in 50 mls @ 12.5 mls/hr 10/29/24 14:00 10/30/24 05:00 Zosyn IV 11/05/24 13:59 12.5 mls/hr Q8HR [place] Administration Vancomycin/Sodium Chloride 750 mg in 150 mls @ 120 mls/hr 10/30/24 10:00 Vancomycin/Ns 750 Mg Ivpb IV 11/06/24 09:59 Q12H [place] Protocol Insulin Human Lispro 0 unit 10/29/24 17:00 10/30/24 07:58 Insulin Lispro (Admelog) 1 Unit/0.01 Ml Unit SC 11/28/24 16:59 2 unit ACHS [place] Administration Protocol Morphine Sulfate 2 mg 10/29/24 11:56 10/30/24 06:12 Morphine Sulf Inj 10 Mg/Ml Vial IVP 11/03/24 11:55 2 mg Q4HR PRN Administration Pain 7-10 Oxycodone/Acetaminophen 1 tab 10/29/24 10:02 10/29/24 22:39 Oxycodone/Apap 5/325 Tablet PO 11/03/24 10:01 1 tab Q6H PRN Administration PAIN SCALE 4-6 (Moderate Pantoprazole Sodium 40 mg 10/30/24 09:00 Pantoprazole Inj 40 Mg Vial IVP 11/29/24 08:59 QDAY [facility] Pharmacy Consult 1 each 10/30/24 09:00 Vancomycin Pharmacy To Dose 1 Each Each IV 11/29/24 08:59 QDAY PRN CONSULT Pharmacy Consult 1 each 10/29/24 12:47 Pharmacy To Consult Pneumovacc XX 11/28/24 12:46 PRN PRN CONSULT Plan In summary: 69-year-old female with PMHx of HTN, T2DM, left foot osteomyelitis and GERD presented to ED with worsening epigastric pain and intractable left foot pain. Admitted to med/tele for surgical evaluation and blood pressure control. Hypertensive emergency - resolved Hypertensive urgency Hx of HTN, admission BP 190/65, patient has lactic acidosis, denies cardiogenic chest pain Likely poorly controlled hypertension, worsened due to pain EKG sinus rhythm, no acute ST changes, troponin negative Currently BP 175/69, likely related to pain ? Started home CARVEDILOL 3.125 mg BID ? Started HYDRALAZINE 25 mg q.8h. for SBP greater than 170 ? Controlling pain as below ? Med/tele Left foot osteomyelitis T2DM Peripheral artery disease History diabetes, A1c 6.5 this visit. Has outpatient wound care for left foot ulcer, presenting with severe intractable pain 08/24. Foot CT: Soft tissue infection plantar aspect of calcaneus, suspected early osteomyelitis of plantar surface of calcaneus. History of peripheral artery disease, s/p cardiovascular patient on right foot, patient pending cardiovascular evaluation of the left foot in November Currently afebrile, WBC 15.4 > 11 Completed 1 day of ZOSYN and VANCOMYCIN Pain poorly controlled with MORPHINE and HYDROCODONE, meds changed as below Orthopedics, Dr. HOWARD recommended ID consult, started DAKIN'S solution ID recommended 6 weeks CEFTRIAXONE 2 g daily and DOXY 100 mg BID ? Consult general surgery and orthopedics ? Started CEFTRIAXONE 2 g daily (08/30 to [present]) ? Started DOXYCYCLINE 100 mg BID (08/30 to [present]) ? NORCO 5/325 1 tablet q.6h. PRN ? DILAUDID 0.5 q.6h. PRN ? INSULIN sliding scale ? Pending PICC line ? Pending MRI left foot ? Will need weekly CBC/CMP/ESR to evaluate improvement Epigastric pain, unspecified ? improving GERD Initially complained of chest pain however on examination, patient endorsing epigastric pain, worse in left upper quadrant. Pain reproducible on exam, overall improving. Abdominal ultrasound consistent with her symptoms, showed biliary sludge, and hepatocellular disease. History of GERD, on home OMEPRAZOLE. ? Started PROTONIX 40 mg daily ? Continue to monitor Hypothyroidism ? Resumed home LEVOTHYROXINE 88 mg Insomnia/depression ? Resumed home QUETIAPINE 25 mg HS ? Resumed home DULOXETINE 20 mg daily Peripheral neuropathy ? Resumed home GABAPENTIN 600 mg BID Parkinson's disease ? Resumed home CARBIDOPA LEVODOPA 25?100 TID Incidental Findings * Abdominal ultrasound suspected primary hepatocellular disease, bilateral renal cortical thinning, moderate bilateral renal parenchymal scar formation, gallbladder sludge. Patient asymptomatic. * Recommended outpatient follow-up with PCP Health maintenance Diet: CHO consistent GI prophylaxis: PROTONIX DVT prophylaxis: SCD Antibiotics: ZOSYN, VANCOMYCIN CODE STATUS: DNR Disposition: Pending surgery/ORTHO evaluation Patient case was discussed with attending, Dr. Jaren MD and senior residents Dr. Lawler and Dr. Colbert. Yassine Bernal DO PGYI Attending Provider Attestation/Addendum I reviewed labs, imaging, EKG, home medications and prior available records. Face to face evaluation was performed by me. I have personally examined the patient and discussed assessment and plan with the IM team. I reviewed the resident note and agree with the plan with exceptions as below. Left foot osteomyelitis Hypertensive urgency Uncontrolled hypertension Parkinson's disease Changed vancomycin and Zosyn to Rocephin and doxycycline. Consulted IR for PICC line placement. She will need 6 weeks of treatment. Started hydralazine. Management of pain. Monitor BP.
--- NOTE | 2024-10-30 09:25 | ESPR_ITS ---
Subjective Subjective Interval history: nice older woman with pvd. noted before. rt leg surg in past Exam Vital Signs Temp Pulse Resp BP Pulse Ox O2 Del Method 97.2 F 76 17 175/69 H 99 Room Air 10/30/24 04:00 10/30/24 08:08 10/30/24 04:00 10/30/24 08:08 10/30/24 04:00 10/30/24 04:00 Narrative Exam thin extremities. L heel tender. no O2 need noted. Objective - Internal Medicine Labs 10/30/24 04:53 10/30/24 04:53 Labs: Laboratory Results - last 24 hr 10/29/24 10/29/24 10/29/24 05:02 10:06 13:44 WBC RBC Hgb Hct MCV MCH MCHC RDW Std Deviation Plt Count Neut % (Auto) Lymph % (Auto) [place] % (Auto) Eos % (Auto) Baso % (Auto) Neut # (Auto) Lymph # (Auto) [place] # (Auto) Eos # (Auto) Baso # (Auto) Immature Gran # (Auto) Absolute Nucleated RBC Immature Gran % Nucleated RBC % Sodium Potassium Chloride Carbon Dioxide Anion Gap BUN Creatinine Estim Creat Clear Calc eGFR BUN/Creatinine Ratio Glucose Estimated Ave Glu mg/dL Hemoglobin A1c Calculated Osmolality Lactic Acid 2.2 H 1.3 Calcium Corrected Calcium Phosphorus Magnesium Total Bilirubin AST ALT Alkaline Phosphatase Troponin I < 0.020 C-Reactive Prot, Quant 7.9 H Total Protein Albumin Globulin Albumin/Globulin Ratio Triglycerides 124 Cholesterol 137 LDL Cholesterol, Calc 66 HDL Cholesterol 46 Cholesterol/HDL Ratio 3.0 L Ur Collection Type Urine Color Urine Clarity Urine pH Ur Specific [place] Urine Protein Urine Glucose (UA) Urine Ketones Urine Blood Urine Nitrite Urine Bilirubin Urine Urobilinogen (Auto) Ur Leukocyte Esterase Urine RBC Urine WBC Ur Squamous Epith Cells Urine Bacteria Ur Culture Indicated? 10/30/24 10/30/24 04:11 04:53 WBC 11.4 H RBC 4.02 Hgb 10.5 L Hct 34.1 L MCV 85 MCH 26.1 MCHC 30.8 L RDW Std Deviation 56.7 H Plt Count 509 H D Neut % (Auto) 69 Lymph % (Auto) 20 [place] % (Auto) 6 Eos % (Auto) 3 Baso % (Auto) 1 Neut # (Auto) 7.9 H Lymph # (Auto) 2.2 [place] # (Auto) 0.7 Eos # (Auto) 0.3 Baso # (Auto) 0.1 Immature Gran # (Auto) 0.30 H Absolute Nucleated RBC 0.00 Immature Gran % 3 H Nucleated RBC % 0 Sodium 138 Potassium 4.0 Chloride 104 Carbon Dioxide 24.8 Anion Gap 9 BUN 13 Creatinine 0.8 Estim Creat Clear Calc Not Performed. eGFR > 60 BUN/Creatinine Ratio [address] Glu mg/dL 140 H Hemoglobin A1c 6.5 H Calculated Osmolality 277 Lactic Acid Calcium 8.9 Corrected Calcium 9.5 Phosphorus 4.5 Magnesium 1.7 Total Bilirubin < 0.2 L AST 10 ALT 10 Alkaline Phosphatase 117 H D Troponin I C-Reactive Prot, Quant Total Protein 6.1 Albumin 3.2 L D Globulin 2.9 Albumin/Globulin Ratio 1.1 L Triglycerides Cholesterol LDL Cholesterol, Calc HDL Cholesterol Cholesterol/HDL Ratio Ur Collection Type Clean Catch Urine Color Lt-Yellow Urine Clarity Clear Urine pH 6.5 Ur Specific [place] 1.026 Urine Protein Trace Urine Glucose (UA) Negative Urine Ketones Negative Urine Blood Trace Urine Nitrite Positive Urine Bilirubin Negative Urine Urobilinogen (Auto) Negative Ur Leukocyte Esterase Positive Urine RBC 6 H Urine WBC 31 H Ur Squamous Epith Cells 1 Urine Bacteria None Ur Culture Indicated? Yes Assessment & Plan A&P Narrative L heel osteo, esr >130, crp 7.9, prior rx with po clinda noted. pvd dm II, a1c 6.5 hld by meds hypothyroid by meds htn by meds suggests rocephin 2 gm iv daily and po doxy 100 mg po bid for 6 weeks with weekly cbc, renal panel, esr and line removal at end of rx. keep appt next month with vascular as problem may be more circulatory than other. abx only kill germs. they do not heal wounds. need to avoid pressure to area and keep elevated while waiting for vascular to see her in November. pt's spouse suggests that they have an appt with vascular in November. Time Spent With Patient Time: Total time spent is greater than 50% in coordination of care (as documented) at patient's floor/unit and/or counseling patient:
[2024-10-30] MEDS: PANTOPRAZOLE INJ 40 MG VIAL IVP (09:58)
[2024-10-30] MEDS: GABAPENTIN 300 MG CAPSULE 600 MG PO ×2 (10:44→21:53)
[2024-10-30] MEDS: VANCOMYCIN/NS 750 MG IVPB 750 MG/150 ML BAG 120 MG IV (10:44)
[2024-10-30] MEDS: DULoxetine HCL 20 MG CAPSULE PO (10:52)
--- NOTE | 2024-10-30 11:47 | ESCONSULT_ITS ---
RE: KEO KIRAN : 1955 DATE OF CONSULTATION: 10/30/2024 DATE OF CONSULTATION: 10/30/2024 REFERRING PHYSICIAN: Dave Eastman DO REASON FOR CONSULTATION: Osteomyelitis of the left heel. HISTORY OF PRESENT ILLNESS: The patient is an unfortunate 69-year-old woman I saw about a year ago. She at that time had an infection in her right second toe, which was slightly removed. She received some clindamycin for a few days. There were no cultures at that time to guide treatment. Some labs were obtained including a sed rate and a hepatitis C test. The hepatitis C test turned out to be negative apparently. We are not going to repeat that. She is older than we would normally screen for HIV. There are no concerns there either. She has a problem with her left heel now and admits to some prior circulatory surgery on her right leg in the past. She also had amputation of the right second toe. PAST MEDICAL HISTORY: Include diabetes, A1c currently 6.5, hyperlipidemia based on home meds, hypothyroidism based on home meds, pvd, and hypertension based on medications. PAST SURGICAL HISTORY: Includes right leg vascular surgery about a year ago or so. They have an appointment with vascular apparently in November. ALLERGIES: NONE NOTED. IMMUNIZATIONS: Last tetanus is not known. She does take a flu shot every year and she has had 6 COVID vaccines and has not had pneumococcal vaccine. FAMILY HISTORY: Positive for diabetes, hypertension, and hyperlipidemia. SOCIAL HISTORY: She lives at home with her and is a lifelong nonsmoker. PHYSICAL EXAMINATION: On exam, the patient has a left foot that is wrapped. The extremities are somewhat thin. It has been a year since prior vascular studies were severely abnormal, so they are very concerning. She had prior left breast lumpectomy for breast cancer in 2017 noted. She was admitted for GI bleeding late last year. It has been another year. Hemoglobin is somewhat improved. MCV is about the same in mid 80s. It was a bit lower before. Renal function is a bit higher than it was at 0.8. It was as low as 0.4 or even less previously. This was about a year ago. She is not very big at 5 feet 3 and 132 pounds. BMI is 23.4. She is listed as being DNR. She is attended to by her . Her exam is otherwise benign. She is awake and alert. She offers a good history, although it is in [place]. She and her speak only [place]. Note, that prior A1cs were mostly higher in mid 2022. In late 2022, her A1c was down to 5.9, but in early 2022, it was 8.1, and late 2021, was 8.2. So she has either done better or there are some other problems that are contributing. She is on a combination of vancomycin and Zosyn currently, which can probably be empirically changed to Rocephin and doxycycline safely. There are no positive cultures to guide treatment. Vancomycin and Zosyn is oddly more nephrotoxic than vancomycin alone. We do not know why. I will not order any tests, so I suggest change to Rocephin and doxycycline for 6 additional weeks. Please note that antibiotics do not heal wounds, so the main thing is going to be her circulation and avoiding pressure. Also, she will have to keep her leg elevated, avoid pressure, and hope that her leg heals by the time she has a vascular appointment in about a month. Her did mention that she has a vascular appointment in about a month, so we will hope that she is able to keep that. DT: 09:36:35 TT: 10:40:00 Ref: [id number] - TID: [id number] MTDD
[2024-10-30] MEDS: cefTRIAXone 2 GM in SODIUM CHLORIDE 0.9% (P) 50 ML IV (12:10)
[2024-10-30] MEDS: DOXYCYCLINE 100 MG TABLET PO ×2 (12:10→21:52)
[2024-10-30] MEDS: CARBIDOPA/LEVODOPA 25/100 MG TABLET 1 TAB PO ×2 (13:51→21:52)
--- NOTE | 2024-10-30 14:26 | ESCONSULT_ITS ---
<Statement entered by Nahum Dhillon MD - 11/01/24 09:30> pt seen with resident. all findings confirmed. see additional notes for details HPI Data of Consult Requesting Physician: Dave Eastman DO Admitting Provider: Dave Eastman DO Attending Provider: Dave Eastman DO Primary Care Provider: Armen Taylor MD Consult Narrative Reason for consult: Left heel osteomyelitis History of present illness: Patient is a 69 year old female with history of hypertension, left foot osteomyelitis treated in Oct 2023 - Nov 2023, Type 2 diabetes mellitius, GERD, arterial stenosis, and arterial calcification who presented to the ED with concerns of chest pain and left foot intractable pain, was admitted for intractable pain, hypertension, and surgical evaluation of foot. Left foot CT revealed soft tissue infection with air density plantar aspect of calcaneus, suspious for early ostemyelitis plantar posterior surface of calcaneus. Infectious disease team was consulted for these findings. On today's examination bedside, patient reports only mild improvement to her pain, continues to report pain on her left foot. Patient has been started on IV vancomycin and IV zosyn, wound cultures pending however no recent blood cultures noted in chart review. WBC on admission was 15.4, has improved to 11.4 today. ESR > 150 and CRP 7.9. 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 Vascular surgery appointment made for November 2024 Vaccination Hx: Endorses COVID vaccines (6x), endorses recent flu. Denies pneumococcal vaccine, unclear of last tetanus shot cc:: cc: Dave Eastman DO Review of Systems Review of Systems Narrative Review of Systems: GENERAL: Denies fevers/chills or diaphoresis. HEENT: Denies headache or visual/hearing changes. NEURO: Denies unusual weakness or difficulty speaking. CARDIO: Denies chest pain or palpitations. PULM: Denies SOB, coughing, or wheezing. GI: Denies abdominal pain, nausea, vomiting URO: Denies burning/itching/pain/urinary changes. 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 Vascular surgery appointment made for November 2024 Vaccination Hx: Endorses COVID vaccines (6x), endorses recent flu. Denies pneumococcal vaccine, unclear of last tetanus shot Exam Vital Signs Temp Pulse Resp BP Pulse Ox O2 Del Method 97.0 F 73 10 L 172/70 H 94 L Room Air 10/30/24 12:00 10/30/24 12:00 10/30/24 12:00 10/30/24 12:00 10/30/24 12:00 10/30/24 12:00 Narrative Exam General: AOx3, cooperative, in no acute distress HEENT: Atraumatic/normocephalic, KAREL, neck supple without masses Heart: RRR, S1 and S2 without clicks or murmurs Lungs: Clear on auscultation bilaterally, no difficulty breathing Abdomen: Soft, nontender. Skin: Left foot and left heel wrapped, no edema or rashes present Neuro: No focal neurological deficits noted Results Labs 10/30/24 04:53 10/30/24 04:53 Labs: Short CBC 10/30/24 Range/Units 04:53 WBC 11.4 H (3.6-11.0) Thou/mm3 Hgb 10.5 L (12.0-16.0) g/dL Hct 34.1 L (36.0-46.0) % Plt Count 509 H D (140-440) Thou/mm3 BMP 10/30/24 04:53 Sodium 138 Potassium 4.0 Chloride 104 Carbon Dioxide 24.8 BUN 13 Creatinine 0.8 Glucose 143 H Calcium 8.9 Liver Function 10/30/24 Range/Units 04:53 Total Bilirubin < 0.2 L (0.3-1.2) mg/dL AST 10 (0-34) U/L ALT 10 (10-49) U/L Alkaline Phosphatase 117 H D (46-116) U/L Albumin 3.2 L D (3.4-4.8) gm/dL Urine 10/30/24 Range/Units 04:11 Urine Color Lt-Yellow (Lt Yel-Yel) Urine Clarity Clear (Clear/Hazy) Urine pH 6.5 (5.0-7.0) Ur Specific [place] 1.026 (1.001-1.035) Urine Protein Trace (Neg - Trace) Urine Glucose (UA) Negative (Negative) Quality Measures Quality Measures VTE prophylaxis (SCDs) Advance care planning discussed with:: patient Medications Home Medications and Allergies Home Medications ?Medication ?Instructions ?Recorded ?Confirmed ?Type atorvastatin 10 mg tablet 10 mg PO QDAY 10/19/24 10/19/24 History carvedilol 3.125 mg tablet 3.125 mg PO BID 10/19/24 10/19/24 History duloxetine 20 mg capsule,delayed 20 mg PO DAILY 10/19/24 10/19/24 History release sprinkle ferrous sulfate 325 mg (65 mg 325 mg PO QDAY 10/19/24 10/19/24 History iron) tablet (Iron (ferrous sulfate)) gabapentin 600 mg tablet 600 mg PO BID 10/19/24 10/19/24 History levodopa 100 mg tablet 100 mg PO TID 10/19/24 10/19/24 History sitagliptin phosphate 25 mg tablet 25 mg PO QDAY 10/19/24 10/19/24 History (Januvia) Allergies Allergy/AdvReac Type Severity Reaction Status Date / Time No Known Allergies Allergy Verified 10/20/24 14:27 Visit Medications Acetaminophen (Acetaminophen 325 Mg Tablet) 650 mg PO Q6H PRN PRN Reason: Fever >100.4 Stop: 11/28/24 10:01 Acetaminophen (Acetaminophen 325 Mg Tablet) 650 mg PO Q6HR PRN PRN Reason: Pain 1-3 Stop: 11/28/24 11:51 Hydrocodone Bitart/Acetaminophen (Hydrocodone/Apap 5/325 Tablet) 1 tab PO Q6HR PRN PRN Reason: PAIN SCALE 4-6 (Moderate Stop: 11/04/24 10:47 Atorvastatin Calcium (Atorvastatin Calcium 10 Mg Tablet) 10 mg PO HS [place] Stop: 11/29/24 20:59 Carbidopa/Levodopa (Carbidopa/Levodopa 25/100 Mg Tablet) 1 tab PO TID [facility] Stop: 11/29/24 13:59 Last Admin: 10/30/24 13:51 Dose: 1 tab Carvedilol (Carvedilol 3.125 Mg Tablet) 3.125 mg PO BIDWM [facility] Stop: 11/28/24 17:29 Last Admin: 10/30/24 08:08 Dose: 3.125 mg Dextrose (Dextrose 50%-Water Inj 50 Ml Syringe) 25 ml IV Q15MIN PRN PRN Reason: BG 50-70 responsive npo pt Stop: 11/28/24 12:30 Dextrose (Dextrose 50%-Water Inj 50 Ml Syringe) 50 ml IV Q15MIN PRN PRN Reason: BG <50 OR BG <70 & pt unresponsive Stop: 11/28/24 12:30 Doxycycline Hyclate (Doxycycline 100 Mg Tablet) 100 mg PO BID [facility] Stop: 11/06/24 10:59 Last Admin: 10/30/24 12:10 Dose: 100 mg Duloxetine HCl (Duloxetine Hcl 20 Mg Capsule) 20 mg PO QDAY [facility] Stop: 11/29/24 10:29 Last Admin: 10/30/24 10:52 Dose: 20 mg Gabapentin (Gabapentin 300 Mg Capsule) 600 mg PO BID [facility] Stop: 11/29/24 10:29 Last Admin: 10/30/24 10:44 Dose: 600 mg Glucagon (Glucagon Inj 1 Mg Vial) 1 mg IM Q15MIN PRN PRN Reason: BG <70, and no IV access Hydralazine HCl (Hydralazine Hcl 25 Mg Tablet) 25 mg PO Q8H PRN PRN Reason: SBP > 170 Stop: 11/28/24 10:01 Hydromorphone HCl (Hydromorphone Inj 2 Mg/Ml Vial) 0.5 mg IVP Q4HR PRN PRN Reason: Pain 7-10 Stop: 11/04/24 10:46 Ceftriaxone Sodium 2 gm/ (Sodium Chloride) 50 mls @ 100 mls/hr IV QDAY [facility] Stop: 11/06/24 10:59 Last Admin: 10/30/24 12:10 Dose: 100 mls/hr Insulin Human Lispro (Insulin Lispro (Admelog) 1 Unit/0.01 Ml Unit) 0 unit SC ACHS [facility]; Protocol Stop: 11/28/24 16:59 Last Admin: 10/30/24 12:03 Dose: Not Given Levothyroxine Sodium (Levothyroxine Sodium 88 Mcg Tablet) 88 mcg PO ACBR [place] Stop: 11/30/24 05:59 Pantoprazole Sodium (Pantoprazole Inj 40 Mg Vial) 40 mg IVP QDAY [place] Stop: 11/29/24 08:59 Last Admin: 10/30/24 09:58 Dose: 40 mg Pharmacy Consult (Vancomycin Pharmacy To Dose 1 Each Each) 1 each IV QDAY PRN PRN Reason: CONSULT Stop: 11/29/24 08:59 Pharmacy Consult (Pharmacy To Consult Pneumovacc) 1 each XX PRN PRN PRN Reason: CONSULT Stop: 11/28/24 12:46 Quetiapine Fumarate (Quetiapine Fumarate 25 Mg Tablet) 25 mg PO HS [place] Stop: 11/29/24 20:59 Discontinued Medications Acetaminophen (Acetaminophen 325 Mg Tablet) 650 mg PO Q6HR PRN PRN Reason: Pain 1-4 Stop: 11/28/24 11:51 Hydrocodone Bitart/Acetaminophen (Hydrocodone/Apap 10/325 Tab) 1 tab PO Q4HR PRN PRN Reason: PAIN SCALE 7-10 (Severe Stop: 11/03/24 10:01 Last Admin: 10/29/24 11:50 Dose: 1 tab Aspirin (Aspirin Ec 81 Mg Tabec) 81 mg PO X1 ONE Stop: 10/29/24 09:41 Last Admin: 10/29/24 11:58 Dose: 81 mg Hydralazine HCl (Hydralazine Inj 20 Mg/Ml Vial) 10 mg IV X1 ONE Stop: 10/29/24 05:14 Last Admin: 10/29/24 05:18 Dose: 10 mg Piperacillin/Tazobactam/Dextrose (Zosyn) 3.375 gm in 50 mls @ 100 mls/hr IV X1 ONE Stop: 10/29/24 06:33 Last Infusion: 10/29/24 06:50 Dose: Infused Piperacillin/Tazobactam/Dextrose (Zosyn) 3.375 gm in 50 mls @ 12.5 mls/hr IV Q8HR [place] Stop: 11/05/24 13:59 Last Admin: 10/30/24 05:00 Dose: 12.5 mls/hr Vancomycin/Sodium Chloride (Vancomycin/Ns 1 Gm Ivpb) 200 mls @ 120 mls/hr IV X1 ONE Stop: 10/29/24 11:54 Last Admin: 10/29/24 11:58 Dose: 120 mls/hr Vancomycin/Sodium Chloride (Vancomycin/Ns 750 Mg Ivpb) 750 mg in 150 mls @ 120 mls/hr IV Q12H [place]; Protocol Stop: 11/06/24 09:59 Last Admin: 10/30/24 10:44 Dose: 120 mls/hr Ibuprofen (Ibuprofen Tab 600 Mg Tablet) 600 mg PO Q6H PRN PRN Reason: PAIN SCALE 1-3 (mild Stop: 11/28/24 10:01 Labetalol HCl (Labetalol Inj 5 Mg/Ml Vial 20 Ml) 10 mg IVP X1 ONE Stop: 10/29/24 11:58 Melatonin (Melatonin 3 Mg Tablet) 3 mg PO HS ONE Stop: 10/29/24 20:08 Last Admin: 10/29/24 20:51 Dose: 3 mg Morphine Sulfate (Morphine Sulf Inj 10 Mg/Ml Vial) 2 mg IVP Q4HR PRN PRN Reason: Pain 7-10 Stop: 11/03/24 11:55 Last Admin: 10/30/24 10:44 Dose: 2 mg Oxycodone/Acetaminophen (Oxycodone/Apap 5/325 Tablet) 1 tab PO Q6H PRN PRN Reason: PAIN SCALE 4-6 (Moderate Stop: 11/03/24 10:01 Last Admin: 10/29/24 22:39 Dose: 1 tab Assessment & Plan Plan Patient is a 69 year old female with history of hypertension, left foot osteomyelitis treated in Oct 2023 - Nov 2023, Type 2 diabetes mellitius, GERD, arterial stenosis, and arterial calcification who presented to the ED with concerns of chest pain and left foot intractable pain, was admitted for intractable pain, hypertension, and surgical evaluation of foot. Left foot CT revealed soft tissue infection with air density plantar aspect of calcaneus, suspious for early ostemyelitis plantar posterior surface of calcaneus. Infectious disease team was consulted for these findings. On today's examination bedside, patient reports only mild improvement to her pain, continues to report pain on her left foot. Patient has been started on IV vancomycin and IV zosyn, wound cultures pending however no recent blood cultures noted in chart review. WBC on admission was 15.4, has improved to 11.4 today. ESR > 150 and CRP 7.9. #Osteomyelitis of left foot calcaneus, plantar posterior surface #History of arterial stenosis and arterial calcification - Left foot CT: soft tissue infection with air density plantar aspect of calcaneus, suspious for early ostemyelitis plantar posterior surface of calcaneus - ESR > 150 and CRP 7.9 on 10/29 - On IV vancomycin and IV Zosyn (10/29 - present) - Prior history of left foot osteomyelitis, treated with 6 week clindamycin course between Oct 2023 - Nov 2023, also s/p right foot 2nd/3rd digit amputation - Abdomen CTA (12/13/2023): Heavy calcification bilateral superficial femoral arteries. Multiple areas of 50-70% stenosis right superficial femoral artery, multiple areas of 20-50% stenosis left superficial femoral artery Plan: - Recommend stopping Vancomycin and Zosyn - Advise starting IV rocephin 2gm qd and PO doxycycline 100mg BID for 6 weeks with weekly CBC, renal panel, ESR, and line removal at end of treatment - Advise following up with vascular surgery, patient endorses appointment set for November 2024 #History of Hypertension #History of T2DM #History of GERD - Management per primary team Patient case discussed with attending physician Dr. Alejo Mandujano, DO PGY-3
--- NOTE | 2024-10-30 16:08 | PC.SS ---
Followup note: SS met with patient and spouse with home health provider line. SS discussed d/c options. HH vs SNF. Patient will need i.v. antibiotics for 6 weeks. Patient prefers HH. Patient confirmed with spouse that he will assist in her care. Patient's p.c.p. remains Dr. Taylor and last appt. was 2 weeks ago. No preference on HH agency. D/c pending.
--- NOTE | 2024-10-30 17:44 | PC.NURSE ---
Dr. Guzman notified of patient blood pressure 80/40, recheck resulted 121/76, order to hold coreg.
[2024-10-30] MEDS: HYDROmorphone INJ 2 MG/ML VIAL 0.5 MG IVP (18:34)
[2024-10-30] MEDS: SOD HYPOCHLORITE 1/2 STR 473 ML BTL IRRIG (21:08)
--- NOTE | 2024-10-30 21:08 | PC.NURSE ---
seen and examined by Dr. Erazo, assisted Dr. Erazo with dressing change to left heel.
[2024-10-30] MEDS: QUEtiapine FUMARATE 25 MG TABLET PO (21:51)
[2024-10-30] MEDS: ATORVASTATIN CALCIUM 10 MG TABLET PO (21:52)
[2024-10-30] MEDS: HYDROcodone/APAP 5/325 TABLET 1 TAB PO (21:52)
--- NOTE | 2024-10-30 22:32 | PD.ORTHCONPN ---
Subjective Subjective Brief History: Patient is a 69-year-old who was admitted on 10/29/2024 with epigastric pain and and left foot pain. It is now felt that her chest pain is not acute cardiac event. She is followed in the wound clinic for left foot osteomyelitis with increasing pain. Narrative: Still having considerable pain in the left heel. Exam Vital Signs Temp Pulse Resp BP Pulse Ox O2 Del Method 97.2 F 92 19 105/67 99 Room Air 10/30/24 20:00 10/30/24 20:00 10/30/24 20:00 10/30/24 20:00 10/30/24 20:00 10/30/24 20:00 Blood pressure 105/67 Narrative Exam Left heel is ulcerated it is down to calcaneus. I want an MRI scan I do not care if there is some movement artifact if the calcaneus involved with osteomyelitis this will not heal with 6 weeks of IV antibiotics. We discussed amputation. I do not see how she can avoid it. This is a 5-month problem and it is appearing very active Objective - Ortho Labs 10/30/24 04:53 10/30/24 04:53 Labs: Laboratory Results - last 24 hr 10/30/24 10/30/24 04:11 04:53 WBC 11.4 H RBC 4.02 Hgb 10.5 L Hct 34.1 L MCV 85 MCH 26.1 MCHC 30.8 L RDW Std Deviation 56.7 H Plt Count 509 H D Neut % (Auto) 69 Lymph % (Auto) 20 [place] % (Auto) 6 Eos % (Auto) 3 Baso % (Auto) 1 Neut # (Auto) 7.9 H Lymph # (Auto) 2.2 [place] # (Auto) 0.7 Eos # (Auto) 0.3 Baso # (Auto) 0.1 Immature Gran # (Auto) 0.30 H Absolute Nucleated RBC 0.00 Immature Gran % 3 H Nucleated RBC % 0 Sodium 138 Potassium 4.0 Chloride 104 Carbon Dioxide 24.8 Anion Gap 9 BUN 13 Creatinine 0.8 Estim Creat Clear Calc Not Performed. eGFR > 60 BUN/Creatinine Ratio [address] Glu mg/dL 140 H Hemoglobin A1c 6.5 H Calculated Osmolality 277 Calcium 8.9 Corrected Calcium 9.5 Phosphorus 4.5 Magnesium 1.7 Total Bilirubin < 0.2 L AST 10 ALT 10 Alkaline Phosphatase 117 H D Total Protein 6.1 Albumin 3.2 L D Globulin 2.9 Albumin/Globulin Ratio 1.1 L Ur Collection Type Clean Catch Urine Color Lt-Yellow Urine Clarity Clear Urine pH 6.5 Ur Specific [place] 1.026 Urine Protein Trace Urine Glucose (UA) Negative Urine Ketones Negative Urine Blood Trace Urine Nitrite Positive Urine Bilirubin Negative Urine Urobilinogen (Auto) Negative Ur Leukocyte Esterase Positive Urine RBC 6 H Urine WBC 31 H Ur Squamous Epith Cells 1 Urine Bacteria None Ur Culture Indicated? Yes White count 11,400 Assessment & Plan Assessment Additional comments: Osteomyelitis left calcaneus with nonhealing ulcer Plan I need that MRI scan. It does not have to be perfect. It will help us guide her in possibly some very tough decisions in the near future. Documentation for date of: 10/30/24
[2024-10-31] VITALS (10 sets, daily range): BP systolic 106–190; BP diastolic 58–100; PULSE 66–91; RESP 16–20; TEMP 36.1–36.7; O2SAT 96–97; BMI 23.3
--- NOTE | 2024-10-31 | XR_ITS ---
Examination: MRI left foot, without contrast Date and time of exam: October 31, 2024 1857 hrs. Indications: Nonhealing wound left foot and heel region Technique: Multiple axial sagittal coronal images of the left foot Findings: Large soft tissue defect plantar surface of the heel Early cortical bone erosion posterior plantar surface of the calcaneus with reactive marrow edema Plantar fascia is thickened Edema dorsum of the foot especially at the level of the metatarsophalangeal joints No pathologic fracture Marked thickening of the Achilles tendon Negative for sinus Tarsi syndrome No soft tissue abscess Impression: Early osteomyelitis posterior plantar surface of the calcaneus
--- NOTE | 2024-10-31 | XR_ITS ---
Examination: MRI left ankle, without contrast Date and time of exam: October 31, 2024 at 1854 hrs. Indications: Nonhealing wound plantar aspect of the foot worse this week Technique: Multiple axial sagittal and coronal images of the left ankle have been obtained with the Siemens high-resolution 1.5 Aracelis MRI scanner. Images obtained include T2-weighted fat-suppressed sagittal sections, TR 3500, TE 46, T2 weighted coronal fat suppressed images, TR 3050, TE 84, T2-weighted transverse fat suppressed images, TR 3260, TE 63, proton density transverse images, TR 4720 TE 46, and T1 weighted coronal images, TR 560, TE 13. Findings: Large soft tissue defect plantar surface of calcaneus Reactive marrow edema and early cortical bone destruction involving the posterior plantar surface of the calcaneus All of these images are severely degraded by patient motion No soft tissue abscess Impression: Early osteomyelitis posterior plantar surface of the calcaneus
[2024-10-31] MEDS: CARBIDOPA/LEVODOPA 25/100 MG TABLET 1 TAB PO ×3 (05:20→21:34)
[2024-10-31] MEDS: LEVOTHYROXINE SODIUM 88 MCG TABLET PO (05:20)
[2024-10-31 05:25] LABS: Basophils # (Auto) 0.1 Thou/mm3 (0.0-0.2); Basophils % (Auto) 1 % (0-2.5); Eosinophils # (Auto) 0.3 Thou/mm3 (0.0-0.5); Eosinophils % (Auto) 3 % (0-10); Hematocrit 29.7 % (36.0-46.0); Hemoglobin 9.4 g/dL (12.0-16.0); Immature Granulocytes % (Auto) 2 % (0-0); Immature Granulocytes Auto 0.21 Thou/mm3 (0.00-0.00); Lymphocytes # (Auto) 2.7 Thou/mm3 (1.0-4.8); Lymphocytes % (Auto) 25 % (10-50); Mean Corpuscular HGB Conc 31.6 g/dl (31.0-37.0); Mean Corpuscular Hemoglobin 26.5 pg (25.0-35.0); Mean Corpuscular Volume 84 fL (80-100); Monocytes # (Auto) 0.7 Thou/mm3 (0.0-0.8); Monocytes % (Auto) 6 % (0-12); Neutrophils # (Auto) 7.1 Thou/mm3 (1.8-7.7); Neutrophils % (Auto) 64 % (37-80); Nucleated Red Blood Cell % 0 /100 WBC (0); Platelet Count 464 Thou/mm3 (140-440); Red Blood Count 3.55 Miln/mm3 (4.00-5.20); White Blood Count 11.1 Thou/mm3 (3.6-11.0)
[2024-10-31 05:35] LABS: Prothrombin Time 11.4 Seconds (9.0-12.2)
[2024-10-31 06:27] LABS: Alanine Aminotransferase < 7 U/L (10-49); Albumin, Serum 3.1 gm/dL (3.4-4.8); Albumin/Globulin Ratio 1.1 (1.2-2.2); Alkaline Phosphatase 100 U/L (46-116); Anion Gap 8 (7-16); Aspartate Amino Transferase < 8 U/L (0-34); BUN/Creatinine Ratio 17 Ratio (12-20); Bilirubin,Total < 0.2 mg/dL (0.3-1.2); Blood Urea Nitrogen 12 mg/dL (9-23); Calcium 8.6 mg/dL (8.3-10.6); Calcium (Corrected) 9.3 mg/dL (8.5-10.1); Carbon Dioxide 25.1 mMol/L (20.0-31.0); Chloride 104 mMol/L (98-107); Creatinine (Component) 0.7 mg/dL (0.6-1.3); Estimated Creatinine Clearance 61.9 mL/min (>60); Globulin 2.7 gm/dL (2.3-3.5); Glucose 120 mg/dL (74-106); Magnesium 1.7 mg/dL (1.6-2.6); Osmolality,Calculated 274 (275-295); Phosphorous 3.6 mg/dL (2.4-5.1); Potassium 4.1 mMol/L (3.4-5.1); Sodium 137 mMol/L (136-145); Total Protein 5.8 gm/dL (5.7-8.2); eGFR > 60 See Note
[2024-10-31] MEDS: HYDROcodone/APAP 5/325 TABLET 1 TAB PO ×2 (07:22→15:46)
[2024-10-31] MEDS: carVEDILOL 3.125 MG TABLET PO (08:11)
[2024-10-31] MEDS: cefTRIAXone 2 GM in SODIUM CHLORIDE 0.9% (P) 50 ML IV (08:12)
[2024-10-31] MEDS: DOXYCYCLINE 100 MG TABLET PO ×2 (08:12→21:34)
[2024-10-31] MEDS: DULoxetine HCL 20 MG CAPSULE PO (08:12)
[2024-10-31] MEDS: GABAPENTIN 300 MG CAPSULE 600 MG PO ×2 (08:13→20:47)
[2024-10-31] MEDS: PANTOPRAZOLE INJ 40 MG VIAL IVP (08:13)
--- NOTE | 2024-10-31 08:15 | ESPR_ITS ---
Documentation for date of: 10/31/24 Subjective Subjective Interval history: No acute overnight events. Pain controlled with current regimen. Tolerating oral intake without nausea or vomiting. Having regular bowel movements. Denies fever, chills, headaches, chest pain, sob, cough, GI or urinary symptoms. Exam Vital Signs Temp Pulse Resp BP Pulse Ox O2 Del Method 97.3 F 91 17 156/68 H 96 Room Air 10/31/24 04:00 10/31/24 08:11 10/31/24 04:00 10/31/24 08:11 10/31/24 04:00 10/31/24 04:00 Narrative Exam GENERAL: Well-nourished normally. Adult female, who is in acute distress 2/2 pain HEENT: NCAT.?KAREL. Oral mucosa is moist. Patent Nares NECK: Supple, nontender, no thyromegaly, no meningismus, no JVD, no step offs CHEST: Symmetrical, atraumatic, and with equal expansion, Nontender on palpation no deformity and no crepitus. CARDIOVASCULAR: RRR, no m/g/r LUNGS: CTAB, no w/r/r. Symmetrical chest rise. No intercostal subcostal retraction. ABDOMEN: Soft, flat, nontender. No guarding/rebound tenderness/masses. +BS EXTREMITIES: Nontender.? No edema/cyanosis.?Moves all 4 extremities well, with full ROM and good CSM. Malodorous left foot, dressing intact, in place, without signs of active discharge or bleed SKIN: Warm and dry, no jaundice/rashes. MSK: No lumbar or midline, no CVA, no paraspinal muscle spasm or tenderness. NEURO: rolling tremor on exam. SCOTT x4, CN II-XII grossly intact.?No focal neurologic deficits. PSYCHIATRIC: Normal mood and affect, cooperative, no SI or HI or hallucinations. Objective Labs 11/02/24 04:03 11/02/24 04:03 Labs: Laboratory Results - last 24 hr 10/31/24 04:04 WBC 11.1 H RBC 3.55 L Hgb 9.4 L Hct 29.7 L MCV 84 MCH 26.5 MCHC 31.6 RDW Std Deviation 55.0 H Plt Count 464 H D Neut % (Auto) 64 Lymph % (Auto) 25 [place] % (Auto) 6 Eos % (Auto) 3 Baso % (Auto) 1 Neut # (Auto) 7.1 Lymph # (Auto) 2.7 [place] # (Auto) 0.7 Eos # (Auto) 0.3 Baso # (Auto) 0.1 Immature Gran # (Auto) 0.21 H Absolute Nucleated RBC 0.00 Immature Gran % 2 H Nucleated RBC % 0 PT 11.4 INR 1.0 Sodium 137 Potassium 4.1 Chloride 104 Carbon Dioxide 25.1 Anion Gap 8 BUN 12 Creatinine 0.7 Estim Creat Clear Calc 61.9 eGFR > 60 BUN/Creatinine Ratio 17 Glucose 120 H Calculated Osmolality 274 L Calcium 8.6 Corrected Calcium 9.3 Phosphorus 3.6 Magnesium 1.7 Total Bilirubin < 0.2 L AST < 8 ALT < 7 L Alkaline Phosphatase 100 Total Protein 5.8 Albumin 3.1 L Globulin 2.7 Albumin/Globulin Ratio 1.1 L Quality Measures Quality Measures VTE prophylaxis (SCDs) Advance care planning discussed with:: patient Assessment & Plan Assessment Current Active Medications: Generic Name Dose Route Start Last Admin Trade Name Freq PRN Reason Stop Dose Admin Acetaminophen 650 mg 10/29/24 10:02 Acetaminophen 325 Mg Tablet PO 11/28/24 10:01 Q6H PRN Fever >100.4 Acetaminophen 650 mg 10/29/24 11:59 Acetaminophen 325 Mg Tablet PO 11/28/24 11:51 Q6HR PRN Pain 1-3 Hydrocodone Bitart/Acetaminophen 1 tab 10/30/24 10:48 10/31/24 07:22 Hydrocodone/Apap 5/325 Tablet PO 11/04/24 10:47 1 tab Q6HR PRN Administration PAIN SCALE 4-6 (Moderate Atorvastatin Calcium 10 mg 10/30/24 21:00 10/30/24 21:52 Atorvastatin Calcium 10 Mg Tablet PO 11/29/24 20:59 10 mg HS [place] Administration Carbidopa/Levodopa 1 tab 10/30/24 14:00 10/31/24 05:20 Carbidopa/Levodopa 25/100 Mg Tablet PO 11/29/24 13:59 1 tab TID [place] Administration Carvedilol 3.125 mg 10/29/24 17:30 10/31/24 08:11 Carvedilol 3.125 Mg Tablet PO 11/28/24 17:29 3.125 mg BIDWM [place] Administration Dextrose 25 ml 10/29/24 12:31 Dextrose 50%-Water Inj 50 Ml Syringe IV 11/28/24 12:30 Q15MIN PRN BG 50-70 responsive npo pt Dextrose 50 ml 10/29/24 12:31 Dextrose 50%-Water Inj 50 Ml Syringe IV 11/28/24 12:30 Q15MIN PRN BG <50 OR BG <70 & pt unresponsive Doxycycline Hyclate 100 mg 10/30/24 11:00 10/31/24 08:12 Doxycycline 100 Mg Tablet PO 11/06/24 10:59 100 mg BID [place] Administration Duloxetine HCl 20 mg 10/30/24 10:30 10/31/24 08:12 Duloxetine Hcl 20 Mg Capsule PO 11/29/24 10:29 20 mg QDAY [place] Administration Gabapentin 600 mg 10/30/24 10:30 10/31/24 08:13 Gabapentin 300 Mg Capsule PO 11/29/24 10:29 600 mg BID [place] Administration Glucagon 1 mg 10/29/24 12:31 Glucagon Inj 1 Mg Vial IM Q15MIN PRN BG <70, and no IV access Hydralazine HCl 25 mg 10/30/24 17:46 Hydralazine Hcl 25 Mg Tablet PO 11/28/24 10:01 Q8H PRN SBP >165, hold if HR >99 Hydromorphone HCl 0.5 mg 10/30/24 10:47 10/30/24 18:34 Hydromorphone Inj 2 Mg/Ml Vial IVP 11/04/24 10:46 0.5 mg Q4HR PRN Administration Pain 7-10 Ceftriaxone Sodium 2 gm/ 50 mls @ 100 mls/hr 10/30/24 11:00 10/31/24 08:12 Sodium Chloride IV 11/06/24 10:59 100 mls/hr QDAY [place] Administration Insulin Human Lispro 0 unit 10/29/24 17:00 10/31/24 07:25 Insulin Lispro (Admelog) 1 Unit/0.01 Ml Unit SC 11/28/24 16:59 Not Given ACHS [facility] Protocol Levothyroxine Sodium 88 mcg 10/31/24 06:00 10/31/24 05:20 Levothyroxine Sodium 88 Mcg Tablet PO 11/30/24 05:59 88 mcg ACBR [place] Administration Pantoprazole Sodium 40 mg 10/30/24 09:00 10/31/24 08:13 Pantoprazole Inj 40 Mg Vial IVP 11/29/24 08:59 40 mg QDAY [place] Administration Pharmacy Consult 1 each 10/29/24 12:47 Pharmacy To Consult Pneumovacc XX 11/28/24 12:46 PRN PRN CONSULT Quetiapine Fumarate 25 mg 10/30/24 21:00 10/30/24 21:51 Quetiapine Fumarate 25 Mg Tablet PO 11/29/24 20:59 25 mg HS [place] Administration Plan In summary: 69-year-old female with PMHx of HTN, T2DM, left foot osteomyelitis and GERD presented to ED with worsening epigastric pain and intractable left foot pain. Orthopedic surgery consulted, did not recommend intervention at this time. ID recommended 6 weeks of IV ANTIBIOTICS. Patient completed PICC line today. Will need SNF placement for IV ANTIBIOTICS. Hypertensive emergency - resolved Hypertensive urgency - resolved Hx of HTN, admission BP 190/65, patient has lactic acidosis, denies cardiogenic chest pain Likely poorly controlled hypertension, worsened due to pain EKG sinus rhythm, no acute ST changes, troponin negative Currently BP 126/52 ? Continue home CARVEDILOL 3.125 mg BID ? Continue HYDRALAZINE 25 mg q.8h. for SBP greater than 170 ? Controlling pain as below ? Med/tele Left foot osteomyelitis T2DM Peripheral artery disease History diabetes, A1c 6.5 this visit. Has outpatient wound care for left foot ulcer, presenting with severe intractable pain 08/24. Foot CT: Soft tissue infection plantar aspect of calcaneus, suspected early osteomyelitis of plantar surface of calcaneus. History of peripheral artery disease, s/p cardiovascular patient on right foot, patient pending cardiovascular evaluation of the left foot in November Currently afebrile, WBC 15.4 > 11 >13.3 Completed 1 day of ZOSYN and VANCOMYCIN Pain poorly controlled with MORPHINE and HYDROCODONE, meds changed as below Orthopedics, Dr. HOWARD recommended ID consult, started DAKIN'S solution ID recommended 6 weeks CEFTRIAXONE 2 g daily and DOXY 100 mg BID MRI showed early osteomyelitis posterior plantar surface of calcaneus Completed PICC line today ? Consult general surgery and orthopedics ? Continue CEFTRIAXONE 2 g daily (08/30 to [present]) ? Started DOXYCYCLINE 100 mg BID (08/30 to [present]) ? NORCO 5/325 1 tablet q.6h. PRN ? DILAUDID 0.5 q.6h. PRN ? INSULIN sliding scale ? s/p PICC line today: IV Rocephin 2 g/day and p.o. doxycycline 100 mg twice daily for 6 weeks until December 10, 2024. ? Will need weekly CBC/CMP/ESR to evaluate improvement ? Advise patient to follow up with vascular surgery in November 2024. Appt made. Epigastric pain, unspecified ? improving GERD Initially complained of chest pain however on examination, patient endorsing epigastric pain, worse in left upper quadrant. Pain reproducible on exam, overall improving. Abdominal ultrasound consistent with her symptoms, showed biliary sludge, and hepatocellular disease. History of GERD, on home OMEPRAZOLE. ? Continue PROTONIX 40 mg daily ? Continue to monitor Hypothyroidism ? Resumed home LEVOTHYROXINE 88 mg Insomnia/depression ? Resumed home QUETIAPINE 25 mg HS ? Resumed home DULOXETINE 20 mg daily Peripheral neuropathy ? Resumed home GABAPENTIN 600 mg BID Parkinson's disease ? Resumed home CARBIDOPA LEVODOPA 25?100 TID Incidental Findings * Abdominal ultrasound suspected primary hepatocellular disease, bilateral renal cortical thinning, moderate bilateral renal parenchymal scar formation, gallbladder sludge. Patient asymptomatic. * Recommended outpatient follow-up with PCP Health maintenance Diet: CHO consistent GI prophylaxis: PROTONIX DVT prophylaxis: SCD Antibiotics: Rocephin, Doxycycline CODE STATUS: DNR Disposition: Pending MRI Patient case was discussed with attending, Dr. Jaren MD and senior residents Dr. Lawler and Dr. Colbert. Yassine Bernal DO PGYI Attending Provider Attestation/Addendum I reviewed labs, imaging, EKG, home medications and prior available records. Face to face evaluation was performed by me. I have personally examined the patient and discussed assessment and plan with the IM team. I reviewed the resident note and agree with the plan with exceptions as below. Left foot osteomyelitis Hypertensive urgency Uncontrolled hypertension Parkinson's disease Follow-up MRI of the left lower extremity: Confirmed osteomyelitis Changed vancomycin and Zosyn to Rocephin and doxycycline. Consulted IR for PICC line placement. She will need 6 weeks of treatment. 2 g daily till 12/11/2024. Home health ordered. Started hydralazine. Management of pain. Monitor BP.
--- NOTE | 2024-10-31 10:22 | PC.NURSE ---
flushed IV before medication adminstration,Hilaria BAEZA notified, diladid wasted with witness
[2024-10-31] MEDS: HYDROmorphone INJ 2 MG/ML VIAL 0.5 MG IVP ×2 (10:47→20:44)
--- NOTE | 2024-10-31 11:43 | PC.NURSE ---
at bedside, notified of skin tear to R forearm from removal of adhesive tape during IV discontinuation. MD Bernal notified, wound care orders received, wound care and dietary referrals in place, wound care plan open, turn clock in place.
[2024-10-31] MEDS: INSULIN LISPRO (AdmeLOG) 1 UNIT/0.01 ML UNIT SC ×3 (11:58→20:49)
[2024-10-31] MEDS: ALPRazoLAM 0.25 MG TABLET 0.5 MG PO (13:12)
--- NOTE | 2024-10-31 13:55 | PC.DIETICIAN ---
1. Added glucerna ONS TID, increased nutrient needs and intake. 2. Added Flavored Gio 1 pkt TID daily after brk, after lunch a, mix with 6-8 oz water for targeted nutrition and wound healing, RN to administer as medication. 3. Consider prune juice or milk of magnesia if constipation persists. 4. Recommend add Vitamin C 500mg BID daily, zinc 220mg daily to ensure adequate nutrient intake and promote wound healing. 5. Recommend add Multivitamin-Mineral daily to ensure adequate nutrient intake and promote wound healing.
--- NOTE | 2024-10-31 15:30 | PC.NURSE ---
took pt into IR room for PICC line insertion, MD Henry took a look and decided that veins were to small and recommends a central line insertion, bedside report given to Yolis BAEZA
--- NOTE | 2024-10-31 15:48 | PC.NURSE ---
1400 med not given pt was at procedure for picc line,when pt arrived pt was medicated with pain med, and 1400 med. Hilaria BAEZA aware.
--- NOTE | 2024-10-31 16:03 | PC.WOUND ---
[facility] [phone]. Confirmed pt is followed by Dr. Rudd with scheduled vascular procedure 12/01/24 in [place].
--- NOTE | 2024-10-31 16:31 | PC.PT ---
Patient will dc from PT services secondary to ambulation is not indicated at this time. Pls see PT tx notes dated 10/31/24.
[2024-10-31] MEDS: hydrALAZINE HCL 25 MG TABLET PO (17:18)
--- NOTE | 2024-10-31 19:09 | ESPR_ITS ---
Documentation for date of: 10/31/24 Subjective Subjective Interval history: Patient seen and examined at bedside this morning. No acute overnight events. Vitals, labs reviewed. WBC with mild improvement. Pain is manageable with [place] and Dilaudid when severe. Patient is pending MRI foot, per Ortho recs, and PICC line for long-term antibiotics for osteomyelitis, as recommended by ID. Patient will be on IV Rocephin 2 g/day and p.o. doxycycline 100 mg twice daily for 6 weeks until December 10, 2024. She will need weekly CBC, renal panel, ESR and line removal at the end of treatment. Patient was advised to follow-up with vascular surgeon next month. Case was also discussed with physical therapy and wound care nurse, who advised patient not to walk on her right foot due to risk of pressure injury. SNF was recommended however patient and refused. Patient's at bedside stated he would help her with transferring. Will order HH-PT when stable for DC. Exam Vital Signs Temp Pulse Resp BP Pulse Ox O2 Del Method 98.1 F 90 16 107/72 97 Room Air 10/31/24 13:34 10/31/24 17:18 10/31/24 13:34 10/31/24 18:21 10/31/24 13:34 10/31/24 13:34 Narrative Exam GENERAL: Well-nourished normally. Adult female, who is in acute distress 2/2 pain HEENT: NCAT.?KAREL. Oral mucosa is moist. Patent Nares NECK: Supple, nontender, no thyromegaly, no meningismus, no JVD, no step offs CHEST: Symmetrical, atraumatic, and with equal expansion, Nontender on palpation no deformity and no crepitus. CARDIOVASCULAR: RRR, no m/g/r LUNGS: CTAB, no w/r/r. Symmetrical chest rise. No intercostal subcostal retraction. ABDOMEN: Soft, flat, nontender. No guarding/rebound tenderness/masses. +BS EXTREMITIES: Nontender.? No edema/cyanosis.?Moves all 4 extremities well, with full ROM and good CSM. Malodorous left foot, dressing intact, in place, without signs of active discharge or bleed SKIN: Warm and dry, no jaundice/rashes. MSK: No lumbar or midline, no CVA, no paraspinal muscle spasm or tenderness. NEURO: SCOTT x4, CN II-XII grossly intact.?No focal neurologic deficits. PSYCHIATRIC: Normal mood and affect, cooperative, no SI or HI or hallucinations. Objective Labs 11/01/24 04:49 11/01/24 04:49 Labs: Laboratory Results - last 24 hr 10/31/24 04:04 WBC 11.1 H RBC 3.55 L Hgb 9.4 L Hct 29.7 L MCV 84 MCH 26.5 MCHC 31.6 RDW Std Deviation 55.0 H Plt Count 464 H D Neut % (Auto) 64 Lymph % (Auto) 25 [place] % (Auto) 6 Eos % (Auto) 3 Baso % (Auto) 1 Neut # (Auto) 7.1 Lymph # (Auto) 2.7 [place] # (Auto) 0.7 Eos # (Auto) 0.3 Baso # (Auto) 0.1 Immature Gran # (Auto) 0.21 H Absolute Nucleated RBC 0.00 Immature Gran % 2 H Nucleated RBC % 0 PT 11.4 INR 1.0 Sodium 137 Potassium 4.1 Chloride 104 Carbon Dioxide 25.1 Anion Gap 8 BUN 12 Creatinine 0.7 Estim Creat Clear Calc 61.9 eGFR > 60 BUN/Creatinine Ratio 17 Glucose 120 H Calculated Osmolality 274 L Calcium 8.6 Corrected Calcium 9.3 Phosphorus 3.6 Magnesium 1.7 Total Bilirubin < 0.2 L AST < 8 ALT < 7 L Alkaline Phosphatase 100 Total Protein 5.8 Albumin 3.1 L Globulin 2.7 Albumin/Globulin Ratio 1.1 L Quality Measures Quality Measures VTE prophylaxis (SCDs) Advance care planning discussed with:: patient Assessment & Plan Assessment Current Active Medications: Generic Name Dose Route Start Last Admin Trade Name Freq PRN Reason Stop Dose Admin Acetaminophen 650 mg 10/29/24 10:02 Acetaminophen 325 Mg Tablet PO 11/28/24 10:01 Q6H PRN Fever >100.4 Acetaminophen 650 mg 10/29/24 11:59 Acetaminophen 325 Mg Tablet PO 11/28/24 11:51 Q6HR PRN Pain 1-3 Hydrocodone Bitart/Acetaminophen 1 tab 10/30/24 10:48 10/31/24 15:46 Hydrocodone/Apap 5/325 Tablet PO 11/04/24 10:47 1 tab Q6HR PRN Administration PAIN SCALE 4-6 (Moderate Atorvastatin Calcium 10 mg 10/30/24 21:00 10/30/24 21:52 Atorvastatin Calcium 10 Mg Tablet PO 11/29/24 20:59 10 mg HS [place] Administration Balsam Digna/[place] Oil 0 gm 10/31/24 21:00 Balsam Digna/[place] Oil (Venelex) 60 Gm Tube TOP 11/30/24 20:59 BID [place] Carbidopa/Levodopa 1 tab 10/30/24 14:00 10/31/24 15:46 Carbidopa/Levodopa 25/100 Mg Tablet PO 11/29/24 13:59 1 tab TID [place] Administration Carvedilol 3.125 mg 10/29/24 17:30 10/31/24 08:11 Carvedilol 3.125 Mg Tablet PO 11/28/24 17:29 3.125 mg BIDWM [place] Administration Dextrose 25 ml 10/29/24 12:31 Dextrose 50%-Water Inj 50 Ml Syringe IV 11/28/24 12:30 Q15MIN PRN BG 50-70 responsive npo pt Dextrose 50 ml 10/29/24 12:31 Dextrose 50%-Water Inj 50 Ml Syringe IV 11/28/24 12:30 Q15MIN PRN BG <50 OR BG <70 & pt unresponsive Doxycycline Hyclate 100 mg 10/30/24 11:00 10/31/24 08:12 Doxycycline 100 Mg Tablet PO 11/06/24 10:59 100 mg BID [place] Administration Duloxetine HCl 20 mg 10/30/24 10:30 10/31/24 08:12 Duloxetine Hcl 20 Mg Capsule PO 11/29/24 10:29 20 mg QDAY [place] Administration Gabapentin 600 mg 10/30/24 10:30 10/31/24 08:13 Gabapentin 300 Mg Capsule PO 11/29/24 10:29 600 mg BID [place] Administration Glucagon 1 mg 10/29/24 12:31 Glucagon Inj 1 Mg Vial IM Q15MIN PRN BG <70, and no IV access Hydralazine HCl 25 mg 10/30/24 17:46 10/31/24 17:18 Hydralazine Hcl 25 Mg Tablet PO 11/28/24 10:01 25 mg Q8H PRN Administration SBP >165, hold if HR >99 Hydromorphone HCl 0.5 mg 10/30/24 10:47 10/31/24 10:47 Hydromorphone Inj 2 Mg/Ml Vial IVP 11/04/24 10:46 0.5 mg Q4HR PRN Administration Pain 7-10 Ceftriaxone Sodium 2 gm/ 50 mls @ 100 mls/hr 10/30/24 11:00 10/31/24 08:12 Sodium Chloride IV 11/06/24 10:59 100 mls/hr QDAY [place] Administration Insulin Human Lispro 0 unit 10/29/24 17:00 10/31/24 17:03 Insulin Lispro (Admelog) 1 Unit/0.01 Ml Unit SC 11/28/24 16:59 1 unit ACHS [place] Administration Protocol Levothyroxine Sodium 88 mcg 10/31/24 06:00 10/31/24 05:20 Levothyroxine Sodium 88 Mcg Tablet PO 11/30/24 05:59 88 mcg ACBR [place] Administration Pantoprazole Sodium 40 mg 10/30/24 09:00 10/31/24 08:13 Pantoprazole Inj 40 Mg Vial IVP 11/29/24 08:59 40 mg QDAY [place] Administration Pharmacy Consult 1 each 10/29/24 12:47 Pharmacy To Consult Pneumovacc XX 11/28/24 12:46 PRN PRN CONSULT Quetiapine Fumarate 25 mg 10/30/24 21:00 10/30/24 21:51 Quetiapine Fumarate 25 Mg Tablet PO 11/29/24 20:59 25 mg HS [place] Administration Plan In summary: 69-year-old female with PMHx of HTN, T2DM, left foot osteomyelitis and GERD presented to ED with worsening epigastric pain and intractable left foot pain. Admitted to med/tele for surgical evaluation and blood pressure control. Hypertensive emergency - resolved Hypertensive urgency - resolved Hx of HTN, admission BP 190/65, patient has lactic acidosis, denies cardiogenic chest pain Likely poorly controlled hypertension, worsened due to pain EKG sinus rhythm, no acute ST changes, troponin negative Currently BP 175/69, likely related to pain ? Started home CARVEDILOL 3.125 mg BID ? Started HYDRALAZINE 25 mg q.8h. for SBP greater than 170 ? Controlling pain as below ? Med/tele Left foot osteomyelitis T2DM Peripheral artery disease History diabetes, A1c 6.5 this visit. Has outpatient wound care for left foot ulcer, presenting with severe intractable pain 08/24. Foot CT: Soft tissue infection plantar aspect of calcaneus, suspected early osteomyelitis of plantar surface of calcaneus. History of peripheral artery disease, s/p cardiovascular patient on right foot, patient pending cardiovascular evaluation of the left foot in November Currently afebrile, WBC 15.4 > 11 Completed 1 day of ZOSYN and VANCOMYCIN Pain poorly controlled with MORPHINE and HYDROCODONE, meds changed as below Orthopedics, Dr. HOWARD recommended ID consult, started DAKIN'S solution ID recommended 6 weeks CEFTRIAXONE 2 g daily and DOXY 100 mg BID ? Consult general surgery and orthopedics ? Started CEFTRIAXONE 2 g daily (08/30 to [present]) ? Started DOXYCYCLINE 100 mg BID (08/30 to [present]) ? NORCO 5/325 1 tablet q.6h. PRN ? DILAUDID 0.5 q.6h. PRN ? INSULIN sliding scale ? s/p PICC line today: IV Rocephin 2 g/day and p.o. doxycycline 100 mg twice daily for 6 weeks until December 10, 2024. ? Pending MRI left foot => once MRI done, likely can DC home with HH-PT ? Will need weekly CBC/CMP/ESR to evaluate improvement ? Advise patient to follow up with vascular surgery in November 2024. Appt made. Epigastric pain, unspecified ? improving GERD Initially complained of chest pain however on examination, patient endorsing epigastric pain, worse in left upper quadrant. Pain reproducible on exam, overall improving. Abdominal ultrasound consistent with her symptoms, showed biliary sludge, and hepatocellular disease. History of GERD, on home OMEPRAZOLE. ? Started PROTONIX 40 mg daily ? Continue to monitor Hypothyroidism ? Resumed home LEVOTHYROXINE 88 mg Insomnia/depression ? Resumed home QUETIAPINE 25 mg HS ? Resumed home DULOXETINE 20 mg daily Peripheral neuropathy ? Resumed home GABAPENTIN 600 mg BID Parkinson's disease ? Resumed home CARBIDOPA LEVODOPA 25?100 TID Incidental Findings * Abdominal ultrasound suspected primary hepatocellular disease, bilateral renal cortical thinning, moderate bilateral renal parenchymal scar formation, gallbladder sludge. Patient asymptomatic. * Recommended outpatient follow-up with PCP Health maintenance Diet: CHO consistent GI prophylaxis: PROTONIX DVT prophylaxis: SCD Antibiotics: Rocephin, Doxycycline CODE STATUS: DNR Disposition: Pending MRI Patient case was discussed with attending, Dr. Jaren MD and senior residents Dr. Lawler and Dr. Colbert. Yassine Bernal DO PGYI Attending Provider Attestation/Addendum I reviewed labs, imaging, EKG, home medications and prior available records. Face to face evaluation was performed by me. I have personally examined the patient and discussed assessment and plan with the IM team. I reviewed the resident note and agree with the plan with exceptions as below. Left foot osteomyelitis Hypertensive urgency Uncontrolled hypertension Parkinson's disease Follow-up MRI of the left lower extremity Changed vancomycin and Zosyn to Rocephin and doxycycline. Consulted IR for PICC line placement. She will need 6 weeks of treatment. 2 g daily till 12/11/2024. Home health ordered. Started hydralazine. Management of pain. Monitor BP.
[2024-10-31] MEDS: QUEtiapine FUMARATE 25 MG TABLET PO (20:47)
[2024-10-31] MEDS: ATORVASTATIN CALCIUM 10 MG TABLET PO (20:47)
[2024-10-31] MEDS: BALSAM PERU/CASTOR OIL (Venelex) 60 GM TUBE TOP (20:50)
--- NOTE | 2024-10-31 22:09 | CONPN_ITS ---
Subjective Subjective Brief History: Patient is a 69-year-old who was admitted on 10/29/2024 with epigastric pain and and left foot pain. It is now felt that her chest pain is not acute cardiac event. She is followed in the wound clinic for left foot osteomyelitis with increasing pain. Narrative: Less pain. Exam Vital Signs Temp Pulse Resp BP Pulse Ox O2 Del Method 97 F 91 20 147/75 H 97 Room Air 10/31/24 20:00 10/31/24 20:00 10/31/24 20:00 10/31/24 20:00 10/31/24 20:00 10/31/24 20:00 Blood pressure 147/75, temperature 97 Narrative Exam Ulcer very large. Less redness around rim of ulcer Objective - Ortho Labs 10/31/24 04:04 10/31/24 04:04 Labs: Laboratory Results - last 24 hr 10/31/24 04:04 WBC 11.1 H RBC 3.55 L Hgb 9.4 L Hct 29.7 L MCV 84 MCH 26.5 MCHC 31.6 RDW Std Deviation 55.0 H Plt Count 464 H D Neut % (Auto) 64 Lymph % (Auto) 25 [place] % (Auto) 6 Eos % (Auto) 3 Baso % (Auto) 1 Neut # (Auto) 7.1 Lymph # (Auto) 2.7 [place] # (Auto) 0.7 Eos # (Auto) 0.3 Baso # (Auto) 0.1 Immature Gran # (Auto) 0.21 H Absolute Nucleated RBC 0.00 Immature Gran % 2 H Nucleated RBC % 0 PT 11.4 INR 1.0 Sodium 137 Potassium 4.1 Chloride 104 Carbon Dioxide 25.1 Anion Gap 8 BUN 12 Creatinine 0.7 Estim Creat Clear Calc 61.9 eGFR > 60 BUN/Creatinine Ratio 17 Glucose 120 H Calculated Osmolality 274 L Calcium 8.6 Corrected Calcium 9.3 Phosphorus 3.6 Magnesium 1.7 Total Bilirubin < 0.2 L AST < 8 ALT < 7 L Alkaline Phosphatase 100 Total Protein 5.8 Albumin 3.1 L Globulin 2.7 Albumin/Globulin Ratio 1.1 L White count 11,100 Assessment & Plan Assessment Additional comments: I reviewed the MRI scan of her left ankle it appears that there is significant bone edema of the ulcer goes right down and craters at the calcaneus Plan She has had this for 5 months. Diabetes hypertension. Poor circulation. I do not see that is healing by secondary intention. The only way this would heal I think would be a flap. Dr. Callahan has seen the patient I think she is going to need a below-knee amputation. Without this so we will continue on near to intermediate future for [address] Noyola removed toes right foot. It would be good to get his input. Both Dr. Callahan and Dr. Noyola have a lot more experience with diabetic feet than I do. would be nice to get a healing level. She does from what the record says have an appointment to see vascular surgery. Again it appears that there is involvement of the calcaneus especially in the axillary images which show loss of bone calcaneus Documentation for date of: 10/31/24
[2024-11-01] VITALS (12 sets, daily range): BP systolic 90–160; BP diastolic 49–74; PULSE 74–93; RESP 16–18; TEMP 36.1–36.7; O2SAT 92–98
--- NOTE | 2024-11-01 | XR_ITS ---
Examination: Ultrasound-guided needle placement left basilic vein. Dual-lumen central line placement (PICC line). Fluoroscopy AP chest, portable, single view Exam date and time:November 01, 2024 1311 hours INDICATIONS: Need for long-term intravenous medication for osteomyelitis A timeout was completed verifying correct patient, procedure, site, positioning Informed consent provided Technique: The patient's site was prepped and draped in sterile fashion. Maximum Sterile Barrier Technique used including cap, mask, sterile gown, sterile gloves, and sterile full body drape. If ultrasound technique used: sterile gel and sterile probe covers. Hand Hygiene performed using proper scrub, soap and water, or alcohol-based hand rub. Site right portable apparatus utilized to confirm patency of the left basilic vein Utilizing ultrasonographic guidance successful 21-gauge needle puncture into the left basilic vein Ultrasound images recorded and stored. 5 cc 1% lidocaine administered for local anesthetic. Successful micropuncture with a 21-gauge needle is performed. 0.18 wire guide is then introduced into the SVC under fluoroscopic guidance. Dual-lumen catheter dilator is then introduced, followed by the catheter in the SVC and proper position under fluoroscopic guidance. Successful aspiration of blood and flushing with heparinized saline is then performed in the 2 venous limbs. The catheter sutured in place. Findings: Under fluoroscopy, the tip of the catheter is in good position in the vena cava. Portable chest x-ray, post line placement is ordered. Estimated blood loss 3 cc The patient tolerated the procedure well and was in stable and satisfactory condition at completion of the procedure Impression: Successful ultrasound-guided needle placement left basilic vein Successful placement of dual lumen central line, percutaneous Fluoroscopy 0.2 minute radiation dose 3.64 milligray 1 spot fluoroscopic chest film. AP chest completion procedure demonstrates satisfactory position central line. May use central line.
[2024-11-01] MEDS: HYDROcodone/APAP 5/325 TABLET 1 TAB PO ×4 (03:57→23:25)
[2024-11-01] MEDS: LEVOTHYROXINE SODIUM 88 MCG TABLET PO (05:24)
[2024-11-01] MEDS: CARBIDOPA/LEVODOPA 25/100 MG TABLET 1 TAB PO ×3 (05:24→21:27)
[2024-11-01 06:00] LABS: Basophils # (Auto) 0.1 Thou/mm3 (0.0-0.2); Basophils % (Auto) 1 % (0-2.5); Eosinophils # (Auto) 0.3 Thou/mm3 (0.0-0.5); Eosinophils % (Auto) 2 % (0-10); Hematocrit 28.6 % (36.0-46.0); Hemoglobin 9.2 g/dL (12.0-16.0); Immature Granulocytes % (Auto) 2 % (0-0); Immature Granulocytes Auto 0.22 Thou/mm3 (0.00-0.00); Lymphocytes # (Auto) 2.3 Thou/mm3 (1.0-4.8); Lymphocytes % (Auto) 18 % (10-50); Mean Corpuscular HGB Conc 32.2 g/dl (31.0-37.0); Mean Corpuscular Hemoglobin 26.1 pg (25.0-35.0); Mean Corpuscular Volume 81 fL (80-100); Monocytes # (Auto) 0.8 Thou/mm3 (0.0-0.8); Monocytes % (Auto) 6 % (0-12); Neutrophils # (Auto) 9.6 Thou/mm3 (1.8-7.7); Neutrophils % (Auto) 72 % (37-80); Nucleated Red Blood Cell % 0 /100 WBC (0); Platelet Count 473 Thou/mm3 (140-440); RDW Standard Deviation 52.2 fL (36.4-46.3); Red Blood Count 3.52 Miln/mm3 (4.00-5.20); White Blood Count 13.3 Thou/mm3 (3.6-11.0)
[2024-11-01 06:10] LABS: INR 1.1 (0.9-1.3); Prothrombin Time 11.8 Seconds (9.0-12.2)
[2024-11-01 06:53] LABS: Alanine Aminotransferase < 7 U/L (10-49); Albumin, Serum 3.1 gm/dL (3.4-4.8); Albumin/Globulin Ratio 1.1 (1.2-2.2); Alkaline Phosphatase 103 U/L (46-116); Anion Gap 8 (7-16); Aspartate Amino Transferase 12 U/L (0-34); BUN/Creatinine Ratio 19 Ratio (12-20); Bilirubin,Total < 0.2 mg/dL (0.3-1.2); Blood Urea Nitrogen 13 mg/dL (9-23); Calcium 8.6 mg/dL (8.3-10.6); Calcium (Corrected) 9.3 mg/dL (8.5-10.1); Carbon Dioxide 25.1 mMol/L (20.0-31.0); Chloride 101 mMol/L (98-107); Creatinine (Component) 0.7 mg/dL (0.6-1.3); Estimated Creatinine Clearance 59.1 mL/min (>60); Globulin 2.7 gm/dL (2.3-3.5); Glucose 154 mg/dL (74-106); Magnesium 1.7 mg/dL (1.6-2.6); Osmolality,Calculated 271 (275-295); Potassium 3.8 mMol/L (3.4-5.1); Sodium 134 mMol/L (136-145); Total Protein 5.8 gm/dL (5.7-8.2); eGFR > 60 See Note
[2024-11-01] MEDS: HYDROmorphone INJ 2 MG/ML VIAL 0.5 MG IVP ×2 (08:17→21:32)
[2024-11-01] MEDS: PANTOPRAZOLE INJ 40 MG VIAL IVP (08:17)
[2024-11-01] MEDS: DOXYCYCLINE 100 MG TABLET PO ×2 (08:18→20:41)
[2024-11-01] MEDS: carVEDILOL 3.125 MG TABLET PO ×2 (08:18→17:10)
[2024-11-01] MEDS: GABAPENTIN 300 MG CAPSULE 600 MG PO ×2 (08:18→20:41)
[2024-11-01] MEDS: INSULIN LISPRO (AdmeLOG) 1 UNIT/0.01 ML UNIT SC ×4 (08:18→20:43)
[2024-11-01] MEDS: cefTRIAXone 2 GM in SODIUM CHLORIDE 0.9% (P) 50 ML IV (08:18)
[2024-11-01] MEDS: DULoxetine HCL 20 MG CAPSULE PO (08:18)
[2024-11-01] MEDS: BALSAM PERU/CASTOR OIL (Venelex) 60 GM TUBE TOP ×2 (08:26→20:42)
--- NOTE | 2024-11-01 09:03 | PC.CM ---
Pt needs HH for IV abx, entered pt on [employer].
--- NOTE | 2024-11-01 10:38 | PD.SURCONS ---
HPI Consult details History of present illness: 69F with HTN, DM2, chronic left osteomyelitis who was admitted 10/29 with chest pain and left foot pain. Chest pain has improved and an acute cardiac event was ruled out. Regarding her left heel, patient has been treated at the wound care center, has undergone angioplasty of the right lower extremity which allowed for healing of wounds on that foot and is now planned for angiogram of the left lower extremity on 12/01/24 Patient underwent MRI yesterday showing early osteomyelitis, WBC has hovered around 11 Review of Systems Review of Systems ROS Unobtainable: All systems reviewed & no additional complaints except as documented Meds Home Medications and Allergies Home Medications ?Medication ?Instructions ?Recorded ?Confirmed ?Type atorvastatin 10 mg tablet 10 mg PO QDAY 10/19/24 10/19/24 History carvedilol 3.125 mg tablet 3.125 mg PO BID 10/19/24 10/19/24 History duloxetine 20 mg capsule,delayed 20 mg PO DAILY 10/19/24 10/19/24 History release sprinkle ferrous sulfate 325 mg (65 mg 325 mg PO QDAY 10/19/24 10/19/24 History iron) tablet (Iron (ferrous sulfate)) gabapentin 600 mg tablet 600 mg PO BID 10/19/24 10/19/24 History levodopa 100 mg tablet 100 mg PO TID 10/19/24 10/19/24 History sitagliptin phosphate 25 mg tablet 25 mg PO QDAY 10/19/24 10/19/24 History (Januvia) Allergies Allergy/AdvReac Type Severity Reaction Status Date / Time No Known Allergies Allergy Verified 10/20/24 14:27 Exam Vital Signs Temp Pulse Resp BP Pulse Ox O2 Del Method 97.7 F 79 16 90/69 98 Room Air 11/01/24 08:00 11/01/24 08:18 11/01/24 08:00 11/01/24 08:18 11/01/24 08:00 11/01/24 08:00 Constitutional Constitutional: no acute distress Routine Respiratory Exam Respiratory: Present no resp distress Routine Extremities Exam Comments: Left lower extremity no palpable pedal pulses, calcaneal wound with minimal surrounding erythema, no fluctuance, no necrotic tissue Results Results: Laboratory Laboratory results: results reviewed Results: Imaging Imaging narrative: CT, MRI reviewed Assessment & Plan Plan 69F with HTN, DM2, chronic left osteomyelitis who was admitted 10/29 with chest pain and left foot pain, findings consistent with patient's known chronic osteomyelitis. Given that she is planned for angioplasty next month, would not pursue any amputation at this time as it would likely lead to poor wound healing Please reconsult as needed
--- NOTE | 2024-11-01 12:50 | PC.NURSE ---
received report from ARYAN Lagos, pt will come down to IR for a PICC line insertion
--- NOTE | 2024-11-01 12:58 | ESPR_ITS ---
Subjective Subjective Interval history: known pvd. dm , etc. bc pos with gnr but no fever noted. no noted hypotension. doing ok on wrong antibiotic Exam Vital Signs Temp Pulse Resp BP Pulse Ox O2 Del Method 98.0 F 80 18 93/65 96 Room Air 11/01/24 11:55 11/01/24 11:55 11/01/24 11:55 11/01/24 11:55 11/01/24 11:55 11/01/24 11:55 Narrative Exam out for test or procedure so not seen Objective - Internal Medicine Labs 11/01/24 04:49 11/01/24 04:49 Labs: Laboratory Results - last 24 hr 11/01/24 04:49 WBC 13.3 H RBC 3.52 L Hgb 9.2 L Hct 28.6 L MCV 81 MCH 26.1 MCHC 32.2 RDW Std Deviation 52.2 H Plt Count 473 H Neut % (Auto) 72 Lymph % (Auto) 18 [place] % (Auto) 6 Eos % (Auto) 2 Baso % (Auto) 1 Neut # (Auto) 9.6 H Lymph # (Auto) 2.3 [place] # (Auto) 0.8 Eos # (Auto) 0.3 Baso # (Auto) 0.1 Immature Gran # (Auto) 0.22 H Absolute Nucleated RBC 0.00 Immature Gran % 2 H Nucleated RBC % 0 PT 11.8 INR 1.1 Sodium 134 L Potassium 3.8 Chloride 101 Carbon Dioxide 25.1 Anion Gap 8 BUN 13 Creatinine 0.7 Estim Creat Clear Calc 59.1 L eGFR > 60 BUN/Creatinine Ratio 19 Glucose 154 H Calculated Osmolality 271 L Calcium 8.6 Corrected Calcium 9.3 Phosphorus 3.0 Magnesium 1.7 Total Bilirubin < 0.2 L AST 12 ALT < 7 L Alkaline Phosphatase 103 Total Protein 5.8 Albumin 3.1 L Globulin 2.7 Albumin/Globulin Ratio 1.1 L Assessment & Plan A&P Narrative L heel osteo, esr >130, crp 7.9, prior rx with po clinda noted. bc pos on admit for gnr on 08/14/24, likely unrelated at this time swab cx with gnr with variable R noted. pvd dm II, a1c 6.5 hld by meds hypothyroid by meds htn by meds stil suggest rocephin 2 gm iv daily and po doxy 100 mg po bid for 6 weeks with weekly cbc, renal panel, esr and line removal at end of rx. keep appt next month with vascular as problem may be more circulatory than other. abx only kill germs. they do not heal wounds. need to avoid pressure to area and keep elevated while waiting for vascular to see her in November. pt's spouse suggests that they have an appt with vascular in November. please avoid swab cx in the future. Operative cx from sterile sites preferred. pt to have vascular procedure in a few weeks. seems timely will check in on Wednesday as pt is out of the room at the moment Time Spent With Patient Time: Total time spent is greater than 50% in coordination of care (as documented) at patient's floor/unit and/or counseling patient:
--- NOTE | 2024-11-01 13:10 | PC.NURSE ---
Received call from quality assurance qa lab technician RN Bhupendra who requested clarification for picc line order as they were not able to place picc yesterday. Contacted who stated that she had spoken with who agreed to try a different location for the picc. Per as patient is supposed to discharge to a snf they cannot accept patients with a central line. This Rn notified Bhupendra Sullivan. Patient was then taken down to quality assurance qa lab technician for picc insertion.
[2024-11-01] MEDS: HEPARIN SOD LOCK SYR 100 UNIT/ML 500 UNIT STFIELD (14:01)
[2024-11-01] MEDS: LIDOCAINE INJ PF 1% 30 ML VIAL INFL (14:01)
[2024-11-01] MEDS: ACETAMINOPHEN 325 MG TABLET 650 MG PO (14:31)
--- NOTE | 2024-11-01 14:44 | PC.NURSE ---
Patient came down to IR for a PICC line insertion via gurney in Room air, patient was taken to IR room in supine position, PICC line inserted on the left AC meassuring 45CM, PICC line card inside patients chart in the black envelope, May use order was put in, procedure completed without any complications, (see MAR for medications given) pt taken back up to her room and report was given to Yolis BAEZA. pt stable without any complaints of pain.
--- NOTE | 2024-11-01 14:55 | PC.CM ---
Addendum entered by Yair Tompkins RN 11/01/24 16:49: 11 HH agencies declined the pt. No accepting at this time. Original Note: pt needs HH for IV abx for 6 weeks until December 102024. HH referral sent to HH agencies and [facility] on [facility]. Awaiting responses. Pending Start of care date.
--- NOTE | 2024-11-01 16:08 | PC.SS ---
Rounding note: patient pending picc line.
[2024-11-01] MEDS: ATORVASTATIN CALCIUM 10 MG TABLET PO (20:41)
[2024-11-01] MEDS: QUEtiapine FUMARATE 25 MG TABLET PO (20:41)
--- NOTE | 2024-11-01 22:49 | CONPN_ITS ---
Subjective Subjective Brief History: Patient is a 69-year-old who was admitted on 10/29/2024 with epigastric pain and and left foot pain. It is now felt that her chest pain is not acute cardiac event. She is followed in the wound clinic for left foot osteomyelitis with increasing pain. Narrative: Patient still with pain Exam Vital Signs Temp Pulse Resp BP Pulse Ox O2 Del Method 97.1 F 75 18 103/50 L 97 Room Air 11/01/24 20:00 11/01/24 20:00 11/01/24 20:00 11/01/24 20:00 11/01/24 20:00 11/01/24 20:00 Blood pressure 103/50 Narrative Exam Ulceration left heel Objective - Ortho Labs 11/01/24 04:49 11/01/24 04:49 Labs: Laboratory Results - last 24 hr 11/01/24 04:49 WBC 13.3 H RBC 3.52 L Hgb 9.2 L Hct 28.6 L MCV 81 MCH 26.1 MCHC 32.2 RDW Std Deviation 52.2 H Plt Count 473 H Neut % (Auto) 72 Lymph % (Auto) 18 [place] % (Auto) 6 Eos % (Auto) 2 Baso % (Auto) 1 Neut # (Auto) 9.6 H Lymph # (Auto) 2.3 [place] # (Auto) 0.8 Eos # (Auto) 0.3 Baso # (Auto) 0.1 Immature Gran # (Auto) 0.22 H Absolute Nucleated RBC 0.00 Immature Gran % 2 H Nucleated RBC % 0 PT 11.8 INR 1.1 Sodium 134 L Potassium 3.8 Chloride 101 Carbon Dioxide 25.1 Anion Gap 8 BUN 13 Creatinine 0.7 Estim Creat Clear Calc 59.1 L eGFR > 60 BUN/Creatinine Ratio 19 Glucose 154 H Calculated Osmolality 271 L Calcium 8.6 Corrected Calcium 9.3 Phosphorus 3.0 Magnesium 1.7 Total Bilirubin < 0.2 L AST 12 ALT < 7 L Alkaline Phosphatase 103 Total Protein 5.8 Albumin 3.1 L Globulin 2.7 Albumin/Globulin Ratio 1.1 L White count 13,000 Assessment & Plan Assessment Additional comments: Dr. Callahan thinks we should wait until vascular surgery. I do not think revascularization of left lower extremity is going to work. She has a full- thickness loss of skin and the ulcer is down to calcaneus. I want a get a second opinion from Dr. Noyola who did surgery right foot Plan Consult Dr. Noyola. Documentation for date of: 11/01/24
[2024-11-02] VITALS (8 sets, daily range): BP systolic 106–146; BP diastolic 40–92; PULSE 72–103; RESP 14–25; TEMP 36.1–36.7; O2SAT 90–100
[2024-11-02] MEDS: HYDROmorphone INJ 2 MG/ML VIAL 0.5 MG IVP ×4 (03:58→21:56)
[2024-11-02] MEDS: CARBIDOPA/LEVODOPA 25/100 MG TABLET 1 TAB PO ×3 (05:11→22:25)
[2024-11-02] MEDS: LEVOTHYROXINE SODIUM 88 MCG TABLET PO (05:11)
[2024-11-02 05:21] LABS: Basophils # (Auto) 0.1 Thou/mm3 (0.0-0.2); Basophils % (Auto) 1 % (0-2.5); Eosinophils # (Auto) 0.2 Thou/mm3 (0.0-0.5); Eosinophils % (Auto) 2 % (0-10); Hematocrit 30.1 % (36.0-46.0); Hemoglobin 9.7 g/dL (12.0-16.0); Immature Granulocytes % (Auto) 2 % (0-0); Immature Granulocytes Auto 0.16 Thou/mm3 (0.00-0.00); Lymphocytes # (Auto) 2.1 Thou/mm3 (1.0-4.8); Lymphocytes % (Auto) 19 % (10-50); Mean Corpuscular HGB Conc 32.2 g/dl (31.0-37.0); Mean Corpuscular Hemoglobin 26.5 pg (25.0-35.0); Mean Corpuscular Volume 82 fL (80-100); Monocytes # (Auto) 0.6 Thou/mm3 (0.0-0.8); Monocytes % (Auto) 6 % (0-12); Neutrophils # (Auto) 7.7 Thou/mm3 (1.8-7.7); Neutrophils % (Auto) 71 % (37-80); Nucleated Red Blood Cell % 0 /100 WBC (0); Platelet Count 506 Thou/mm3 (140-440); RDW Standard Deviation 53.3 fL (36.4-46.3); Red Blood Count 3.66 Miln/mm3 (4.00-5.20); White Blood Count 10.9 Thou/mm3 (3.6-11.0)
[2024-11-02 07:13] LABS: Alanine Aminotransferase < 7 U/L (10-49); Albumin, Serum 3.2 gm/dL (3.4-4.8); Albumin/Globulin Ratio 1.1 (1.2-2.2); Alkaline Phosphatase 108 U/L (46-116); Anion Gap 9 (7-16); Aspartate Amino Transferase 10 U/L (0-34); BUN/Creatinine Ratio 19 Ratio (12-20); Bilirubin,Total < 0.2 mg/dL (0.3-1.2); Blood Urea Nitrogen 13 mg/dL (9-23); Calcium 9.1 mg/dL (8.3-10.6); Calcium (Corrected) 9.7 mg/dL (8.5-10.1); Carbon Dioxide 23.7 mMol/L (20.0-31.0); Chloride 102 mMol/L (98-107); Creatinine (Component) 0.7 mg/dL (0.6-1.3); Estimated Creatinine Clearance 59.1 mL/min (>60); Globulin 2.9 gm/dL (2.3-3.5); Glucose 199 mg/dL (74-106); Magnesium 1.9 mg/dL (1.6-2.6); Osmolality,Calculated 276 (275-295); Phosphorous 2.7 mg/dL (2.4-5.1); Potassium 3.9 mMol/L (3.4-5.1); Sodium 135 mMol/L (136-145); Total Protein 6.1 gm/dL (5.7-8.2); eGFR > 60 See Note
[2024-11-02] MEDS: INSULIN LISPRO (AdmeLOG) 1 UNIT/0.01 ML UNIT SC ×4 (07:47→22:22)
[2024-11-02] MEDS: carVEDILOL 3.125 MG TABLET PO ×2 (07:48→17:54)
--- NOTE | 2024-11-02 07:57 | PD.RESPRO ---
Documentation for date of: 11/02/24 Subjective Subjective Interval history: No acute overnight events. Pain is tolerated. Complaining of worsening Parkinson symptoms. Otherwise denies fever, chills, headaches, chest pain, sob, cough, GI or urinary symptoms. Exam Vital Signs Temp Pulse Resp BP Pulse Ox O2 Del Method 97.5 F 92 16 111/92 H 93 L Room Air 11/02/24 04:00 11/02/24 07:48 11/02/24 04:00 11/02/24 07:48 11/02/24 04:00 11/02/24 04:00 Narrative Exam GENERAL: Well-nourished normally. Adult female, who is in acute distress 2/2 pain HEENT: NCAT.?KAREL. Oral mucosa is moist. Patent Nares NECK: Supple, nontender, no thyromegaly, no meningismus, no JVD, no step offs CHEST: Symmetrical, atraumatic, and with equal expansion, Nontender on palpation no deformity and no crepitus. CARDIOVASCULAR: RRR, no m/g/r LUNGS: CTAB, no w/r/r. Symmetrical chest rise. No intercostal subcostal retraction. ABDOMEN: Soft, flat, nontender. No guarding/rebound tenderness/masses. +BS EXTREMITIES: Nontender.? No edema/cyanosis.?Moves all 4 extremities well, with full ROM and good CSM. Malodorous left foot, dressing intact, in place, without signs of active discharge or bleed SKIN: Warm and dry, no jaundice/rashes. MSK: No lumbar or midline, no CVA, no paraspinal muscle spasm or tenderness. NEURO: SCOTT x4, CN II-XII grossly intact.?No focal neurologic deficits. PSYCHIATRIC: Normal mood and affect, cooperative, no SI or HI or hallucinations. Objective Labs 11/03/24 05:23 11/03/24 05:23 Labs: Laboratory Results - last 24 hr 11/02/24 04:03 WBC 10.9 RBC 3.66 L Hgb 9.7 L Hct 30.1 L MCV 82 MCH 26.5 MCHC 32.2 RDW Std Deviation 53.3 H Plt Count 506 H D Neut % (Auto) 71 Lymph % (Auto) 19 [place] % (Auto) 6 Eos % (Auto) 2 Baso % (Auto) 1 Neut # (Auto) 7.7 Lymph # (Auto) 2.1 [place] # (Auto) 0.6 Eos # (Auto) 0.2 Baso # (Auto) 0.1 Immature Gran # (Auto) 0.16 H Absolute Nucleated RBC 0.00 Immature Gran % 2 H Nucleated RBC % 0 Sodium 135 L Potassium 3.9 Chloride 102 Carbon Dioxide 23.7 Anion Gap 9 BUN 13 Creatinine 0.7 Estim Creat Clear Calc 59.1 L eGFR > 60 BUN/Creatinine Ratio 19 Glucose 199 H Calculated Osmolality 276 Calcium 9.1 Corrected Calcium 9.7 Phosphorus 2.7 Magnesium 1.9 Total Bilirubin < 0.2 L AST 10 ALT < 7 L Alkaline Phosphatase 108 Total Protein 6.1 Albumin 3.2 L Globulin 2.9 Albumin/Globulin Ratio 1.1 L Quality Measures Quality Measures VTE prophylaxis (SCDs) Advance care planning discussed with:: patient Assessment & Plan Assessment Current Active Medications: Generic Name Dose Route Start Last Admin Trade Name Freq PRN Reason Stop Dose Admin Acetaminophen 650 mg 10/29/24 10:02 11/01/24 14:31 Acetaminophen 325 Mg Tablet PO 11/28/24 10:01 650 mg Q6H PRN Administration Fever >100.4 Acetaminophen 650 mg 10/29/24 11:59 Acetaminophen 325 Mg Tablet PO 11/28/24 11:51 Q6HR PRN Pain 1-3 Hydrocodone Bitart/Acetaminophen 1 tab 10/30/24 10:48 11/01/24 23:25 Hydrocodone/Apap 5/325 Tablet PO 11/04/24 10:47 1 tab Q6HR PRN Administration PAIN SCALE 4-6 (Moderate Atorvastatin Calcium 10 mg 10/30/24 21:00 11/01/24 20:41 Atorvastatin Calcium 10 Mg Tablet PO 11/29/24 20:59 10 mg HS [place] Administration Balsam [place]urd[place] Oil 0 gm 10/31/24 21:00 11/01/24 20:42 Balsam [place] Oil (Venelex) 60 Gm Tube TOP 11/30/24 20:59 1 applicatio BID [place] Administration Carbidopa/Levodopa 1 tab 10/30/24 14:00 11/02/24 05:11 Carbidopa/Levodopa 25/100 Mg Tablet PO 11/29/24 13:59 1 tab TID [place] Administration Carvedilol 3.125 mg 10/29/24 17:30 11/02/24 07:48 Carvedilol 3.125 Mg Tablet PO 11/28/24 17:29 3.125 mg BIDWM [place] Administration Dextrose 25 ml 10/29/24 12:31 Dextrose 50%-Water Inj 50 Ml Syringe IV 11/28/24 12:30 Q15MIN PRN BG 50-70 responsive npo pt Dextrose 50 ml 10/29/24 12:31 Dextrose 50%-Water Inj 50 Ml Syringe IV 11/28/24 12:30 Q15MIN PRN BG <50 OR BG <70 & pt unresponsive Doxycycline Hyclate 100 mg 10/30/24 11:00 11/01/24 20:41 Doxycycline 100 Mg Tablet PO 11/06/24 10:59 100 mg BID [place] Administration Duloxetine HCl 20 mg 10/30/24 10:30 11/01/24 08:18 Duloxetine Hcl 20 Mg Capsule PO 11/29/24 10:29 20 mg QDAY [place] Administration Gabapentin 600 mg 10/30/24 10:30 11/01/24 20:41 Gabapentin 300 Mg Capsule PO 11/29/24 10:29 600 mg BID [place] Administration Glucagon 1 mg 10/29/24 12:31 Glucagon Inj 1 Mg Vial IM Q15MIN PRN BG <70, and no IV access Hydralazine HCl 25 mg 10/30/24 17:46 10/31/24 17:18 Hydralazine Hcl 25 Mg Tablet PO 11/28/24 10:01 25 mg Q8H PRN Administration SBP >165, hold if HR >99 Hydromorphone HCl 0.5 mg 10/30/24 10:47 11/02/24 03:58 Hydromorphone Inj 2 Mg/Ml Vial IVP 11/04/24 10:46 0.5 mg Q4HR PRN Administration Pain 7-10 Ceftriaxone Sodium 2 gm/ 50 mls @ 100 mls/hr 10/30/24 11:00 11/01/24 08:18 Sodium Chloride IV 11/06/24 10:59 100 mls/hr QDAY [place] Administration Insulin Human Lispro 0 unit 10/29/24 17:00 11/02/24 07:47 Insulin Lispro (Admelog) 1 Unit/0.01 Ml Unit SC 11/28/24 16:59 2 unit ACHS [place] Administration Protocol Levothyroxine Sodium 88 mcg 10/31/24 06:00 11/02/24 05:11 Levothyroxine Sodium 88 Mcg Tablet PO 11/30/24 05:59 88 mcg ACBR [place] Administration Pantoprazole Sodium 40 mg 10/30/24 09:00 11/01/24 08:17 Pantoprazole Inj 40 Mg Vial IVP 11/29/24 08:59 40 mg QDAY [place] Administration Pharmacy Consult 1 each 10/29/24 12:47 Pharmacy To Consult Pneumovacc XX 11/28/24 12:46 PRN PRN CONSULT Quetiapine Fumarate 25 mg 10/30/24 21:00 11/01/24 20:41 Quetiapine Fumarate 25 Mg Tablet PO 11/29/24 20:59 25 mg HS [place] Administration Plan In summary: 69-year-old female with PMHx of HTN, T2DM, left foot osteomyelitis and GERD presented to ED with worsening epigastric pain and intractable left foot pain. Admitted to med/tele for surgical evaluation and blood pressure control. Continue on ANTIBIOTICS. Pending I&D with general surgery today. Plan on discharge: IV Rocephin 2 g/day and p.o. doxycycline 100 mg twice daily for 6 weeks until December 10, 2024. Will need weekly CBC/CMP/ESR to evaluate improvement Hypertensive emergency - resolved Hypertensive urgency - resolved Hx of HTN, admission BP 190/65, patient has lactic acidosis, denies cardiogenic chest pain Likely poorly controlled hypertension, worsened due to pain EKG sinus rhythm, no acute ST changes, troponin negative Currently BP 175/69, likely related to pain ? Started home CARVEDILOL 3.125 mg BID ? Started HYDRALAZINE 25 mg q.8h. for SBP greater than 170 ? Controlling pain as below ? Med/tele Left foot osteomyelitis T2DM Peripheral artery disease History diabetes, A1c 6.5 this visit. Has outpatient wound care for left foot ulcer, presenting with severe intractable pain 08/24. Foot CT: Soft tissue infection plantar aspect of calcaneus, suspected early osteomyelitis of plantar surface of calcaneus. History of peripheral artery disease, s/p cardiovascular patient on right foot, patient pending cardiovascular evaluation of the left foot in November. Currently afebrile, no leukocytosis. Pain controlled with current regimen. Completed 1 day of ZOSYN and VANCOMYCIN Orthopedics, Dr. HOWARD recommended ID consult, started DAKIN'S solution ID recommended 6 weeks CEFTRIAXONE 2 g daily and DOXY 100 mg BID Wound culture grew E. coli, however blood culture usually unreliable, will continue with ID recommendations as below. PICC line was done. MRI showed early osteomyelitis posterior plantar surface of calcaneus. Plan for I&D with general surgery today 11/02. Vascular surgery, Dr. Rudd, following, pending CTA abdomen for possible lower extremity revascularization. ? Consult general surgery and orthopedics ? Started CEFTRIAXONE 2 g daily (08/30 to [present]) ? Started DOXYCYCLINE 100 mg BID (08/30 to [present]) ? NORCO 5/325 1 tablet q.6h. PRN ? DILAUDID 0.5 q.6h. PRN ? INSULIN sliding scale Epigastric pain, unspecified ? improving GERD Initially complained of chest pain however on examination, patient endorsing epigastric pain, worse in left upper quadrant. Pain reproducible on exam, overall improving. Abdominal ultrasound consistent with her symptoms, showed biliary sludge, and hepatocellular disease. History of GERD, on home OMEPRAZOLE. ? Started PROTONIX 40 mg daily ? Continue to monitor Hypothyroidism ? Resumed home LEVOTHYROXINE 88 mg Insomnia/depression ? Resumed home QUETIAPINE 25 mg HS ? Resumed home DULOXETINE 20 mg daily Peripheral neuropathy ? Resumed home GABAPENTIN 600 mg BID Parkinson's disease Neurology was called for worsening Parkinson's, last meds adjusted 3 years ago. Neurology recommendations as below: ? Continue home CARBIDOPA LEVODOPA 25?100 TID ? Started PRAMIPEXOLE 0.25 p.o. TID Incidental Findings Abdominal ultrasound suspected primary hepatocellular disease, bilateral renal cortical thinning, moderate bilateral renal parenchymal scar formation, gallbladder sludge. Patient asymptomatic. Recommended outpatient follow-up with PCP Health maintenance Diet: CHO consistent GI prophylaxis: PROTONIX DVT prophylaxis: SCD Antibiotics: Rocephin, Doxycycline CODE STATUS: DNR Disposition: Pending MRI Patient case was discussed with attending, Dr. Jaren MD and senior residents Dr. Lawler and Dr. Colbert. Yassine Bernal DO PGYI Attending Provider Attestation/Addendum I reviewed labs, imaging, EKG, home medications and prior available records. Face to face evaluation was performed by me. I have personally examined the patient and discussed assessment and plan with the IM team. I reviewed the resident note and agree with the plan with exceptions as below. Left foot osteomyelitis Hypertensive urgency Uncontrolled hypertension Parkinson's disease Peripheral vascular disease Uncontrolled diabetes mellitus with hyperglycemia, type II Follow-up MRI of the left lower extremity: Did show early osteomyelitis. Changed vancomycin and Zosyn to Rocephin and doxycycline. Consulted IR for PICC line placement. She will need 6 weeks of treatment. 2 g daily till 12/11/2024. Home health ordered. Started hydralazine. Management of pain. Monitor BP. Consulted neurology for worsening Parkinson symptoms: Recommended adding pramipexole Concern for inability to heal given the severe PAD. Consulted vascular surgery Dr. Rudd. Added 5 units of insulin Lantus in the a.m. Monitor fingersticks.
--- NOTE | 2024-11-02 08:24 | PC.SS ---
SS update: spoke with Feliciano the transfer nurse, no current accepting Home Health agency at this time.
--- NOTE | 2024-11-02 08:25 | PC.CM ---
Addendum entered by Yair Tompkins RN 11/02/24 17:24: Need to send picc line report, dc summary and dc orders when available to [facility] and [facility]. Addendum entered by Yair Tompkins RN 11/02/24 17:17: I asked [facility] if the delivery can be made tomorrow on [employer], no response. I called [facility], spoke to Mary and she stated she will have her reservoir engineering consultant pharmacist call me. I spoke to Alea and she stated she will let her intake know about the delivery needs to be made tomorrow and [facility] is following the pt on Sunday 11/04. Addendum entered by Yair Tompkins RN 11/02/24 17:10: I called [facility], spoke to Maria Guadalupe and she stated they don't have any room tomorrow 11/03. But they can see the pt on Sunday 11/04. Pt can be discharged home tomorrow after abx dose. Addendum entered by Yair Tompkins RN 11/02/24 17:09: I asked [facility] on [employer] for start of care date. No response. Addendum entered by Yair Tompkins RN 11/02/24 17:08: [facility] and [facility] accepted the pt. Booked Both. Original Note: 11 HH agencies declined the pt. I sent message to [facility] on [employer] if they can help us with this. Pending response.
[2024-11-02] MEDS: DULoxetine HCL 20 MG CAPSULE PO (09:13)
[2024-11-02] MEDS: GABAPENTIN 300 MG CAPSULE 600 MG PO ×2 (09:13→22:24)
[2024-11-02] MEDS: PANTOPRAZOLE INJ 40 MG VIAL IVP (09:13)
[2024-11-02] MEDS: DOXYCYCLINE 100 MG TABLET PO ×2 (09:13→22:25)
[2024-11-02] MEDS: cefTRIAXone 2 GM in SODIUM CHLORIDE 0.9% (P) 50 ML IV (09:14)
[2024-11-02] MEDS: BALSAM PERU/CASTOR OIL (Venelex) 60 GM TUBE TOP ×2 (09:23→22:26)
--- NOTE | 2024-11-02 09:45 | PD.RESCONSUL ---
HPI Data of Consult Requesting Physician: Marin Singleton MD Admitting Provider: Dave Eastman DO Attending Provider: Marin Singleton MD Primary Care Provider: Amren Taylor MD Consult Narrative History of present illness: 69 year old female with PMH of hypertension, left foot osteomyelitis , DM-2 GERD, arterial stenosis, Parkinsonism and arterial calcification who presented to the ED with concerns of chest pain and left foot pain, was admitted for intractable pain, hypertension, and surgical evaluation of foot. Neurology consulted for Parkinsonism. Is currently taking carbidopa and levodopa . Current vitals BP 111/92,,hr-92, RR?14, saturating well on room air. 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 Vascular surgery appointment made for November 2024 Vaccination Hx: Endorses COVID vaccines (6x), endorses recent flu. Denies pneumococcal vaccine, unclear of last tetanus shot cc:: cc: Marin Singleton MD Review of Systems Review of Systems Systems Reviewed: All systems reviewed, normal except as documented Exam Vital Signs Temp Pulse Resp BP Pulse Ox O2 Del Method 97.0 F 92 14 111/92 H 97 Room Air 11/02/24 08:00 11/02/24 08:00 11/02/24 08:00 11/02/24 08:00 11/02/24 08:00 11/02/24 08:00 Narrative Exam GENERAL: Comfortable adult seen resting comfortably in hospital bed, no acute distress HEENT: Normocephalic, atraumatic. Pupils are equal and reactive. Oral mucosa is moist. NECK: Supple, nontender, no JVD CHEST: Symmetrical, atraumatic and with equal expansion ,Nontender on palpation CARDIOVASCULAR: Heart regular rhythm & rate. S1/S2. no murmur or gallop rub or extra beats. LUNGS: Clear to auscultation bilaterally with symmetrical chest rise. No laboring tachypnea or wheezing. No intercostal subcostal retraction. No rales and no rhonchi. ABDOMEN: Soft, flat, nontender to palpation, no guarding or rebound tenderness. Active and normal bowel sounds. EXTREMITIES:Moves all 4 extremities,left foot bandaged SKIN: Warm and dry, no jaundice or rashes noted. NEURO: Patient is AO x 3, Cranial nerves II through XII grossly intact. PSYCHIATRIC: Patient is in normal mood, cooperative, no SI or HI or hallucinations Results Labs 11/04/24 04:24 11/04/24 04:24 Labs: Short CBC 11/02/24 Range/Units 04:03 WBC 10.9 (3.6-11.0) Thou/mm3 Hgb 9.7 L (12.0-16.0) g/dL Hct 30.1 L (36.0-46.0) % Plt Count 506 H D (140-440) Thou/mm3 BMP 11/02/24 04:03 Sodium 135 L Potassium 3.9 Chloride 102 Carbon Dioxide 23.7 BUN 13 Creatinine 0.7 Glucose 199 H Calcium 9.1 Liver Function 11/02/24 Range/Units 04:03 Total Bilirubin < 0.2 L (0.3-1.2) mg/dL AST 10 (0-34) U/L ALT < 7 L (10-49) U/L Alkaline Phosphatase 108 (46-116) U/L Albumin 3.2 L (3.4-4.8) gm/dL Quality Measures Quality Measures VTE prophylaxis (SCDs) Advance care planning discussed with:: patient Medications Home Medications and Allergies Home Medications ?Medication ?Instructions ?Recorded ?Confirmed ?Type atorvastatin 10 mg tablet 10 mg PO QDAY 10/19/24 10/19/24 History carvedilol 3.125 mg tablet 3.125 mg PO BID 10/19/24 10/19/24 History duloxetine 20 mg capsule,delayed 20 mg PO DAILY 10/19/24 10/19/24 History release sprinkle ferrous sulfate 325 mg (65 mg 325 mg PO QDAY 10/19/24 10/19/24 History iron) tablet (Iron (ferrous sulfate)) gabapentin 600 mg tablet 600 mg PO BID 10/19/24 10/19/24 History sitagliptin phosphate 25 mg tablet 25 mg PO QDAY 10/19/24 10/19/24 History (Januvia) Allergies Allergy/AdvReac Type Severity Reaction Status Date / Time No Known Allergies Allergy Verified 10/20/24 14:27 Visit Medications Acetaminophen (Acetaminophen 325 Mg Tablet) 650 mg PO Q6H PRN PRN Reason: Fever >100.4 Stop: 11/28/24 10:01 Last Admin: 11/01/24 14:31 Dose: 650 mg Acetaminophen (Acetaminophen 325 Mg Tablet) 650 mg PO Q6HR PRN PRN Reason: Pain 1-3 Stop: 11/28/24 11:51 Hydrocodone Bitart/Acetaminophen (Hydrocodone/Apap 5/325 Tablet) 1 tab PO Q6HR PRN PRN Reason: PAIN SCALE 4-6 (Moderate Stop: 11/04/24 10:47 Last Admin: 11/01/24 23:25 Dose: 1 tab Atorvastatin Calcium (Atorvastatin Calcium 10 Mg Tablet) 10 mg PO HS [facility] Stop: 11/29/24 20:59 Last Admin: 11/01/24 20:41 Dose: 10 mg Balsam Digna/[place] Oil (Balsam Digna/[place] Oil (Venelex) 60 Gm Tube) 0 gm TOP BID [facility] Stop: 11/30/24 20:59 Last Admin: 11/02/24 09:23 Dose: 1 applicatio Carbidopa/Levodopa (Carbidopa/Levodopa 25/100 Mg Tablet) 1 tab PO TID [facility] Stop: 11/29/24 13:59 Last Admin: 11/02/24 05:11 Dose: 1 tab Carvedilol (Carvedilol 3.125 Mg Tablet) 3.125 mg PO BIDWM [facility] Stop: 11/28/24 17:29 Last Admin: 11/02/24 07:48 Dose: 3.125 mg Dextrose (Dextrose 50%-Water Inj 50 Ml Syringe) 25 ml IV Q15MIN PRN PRN Reason: BG 50-70 responsive npo pt Stop: 11/28/24 12:30 Dextrose (Dextrose 50%-Water Inj 50 Ml Syringe) 50 ml IV Q15MIN PRN PRN Reason: BG <50 OR BG <70 & pt unresponsive Stop: 11/28/24 12:30 Doxycycline Hyclate (Doxycycline 100 Mg Tablet) 100 mg PO BID [facility] Stop: 11/06/24 10:59 Last Admin: 11/02/24 09:13 Dose: 100 mg Duloxetine HCl (Duloxetine Hcl 20 Mg Capsule) 20 mg PO QDAY [facility] Stop: 11/29/24 10:29 Last Admin: 11/02/24 09:13 Dose: 20 mg Gabapentin (Gabapentin 300 Mg Capsule) 600 mg PO BID [facility] Stop: 11/29/24 10:29 Last Admin: 11/02/24 09:13 Dose: 600 mg Glucagon (Glucagon Inj 1 Mg Vial) 1 mg IM Q15MIN PRN PRN Reason: BG <70, and no IV access Hydralazine HCl (Hydralazine Hcl 25 Mg Tablet) 25 mg PO Q8H PRN PRN Reason: SBP >165, hold if HR >99 Stop: 11/28/24 10:01 Last Admin: 10/31/24 17:18 Dose: 25 mg Hydromorphone HCl (Hydromorphone Inj 2 Mg/Ml Vial) 0.5 mg IVP Q4HR PRN PRN Reason: Pain 7-10 Stop: 11/04/24 10:46 Last Admin: 11/02/24 08:20 Dose: 0.5 mg Ceftriaxone Sodium 2 gm/ (Sodium Chloride) 50 mls @ 100 mls/hr IV QDAY [facility] Stop: 11/06/24 10:59 Last Admin: 11/02/24 09:14 Dose: 100 mls/hr Insulin Human Lispro (Insulin Lispro (Admelog) 1 Unit/0.01 Ml Unit) 0 unit SC [facility]; Protocol Stop: 11/28/24 16:59 Last Admin: 11/02/24 07:47 Dose: 2 unit Levothyroxine Sodium (Levothyroxine Sodium 88 Mcg Tablet) 88 mcg PO ACBR [facility] Stop: 11/30/24 05:59 Last Admin: 11/02/24 05:11 Dose: 88 mcg Pantoprazole Sodium (Pantoprazole Inj 40 Mg Vial) 40 mg IVP QDAY [facility] Stop: 11/29/24 08:59 Last Admin: 11/02/24 09:13 Dose: 40 mg Pharmacy Consult (Pharmacy To Consult Pneumovacc) 1 each XX PRN PRN PRN Reason: CONSULT Stop: 11/28/24 12:46 Quetiapine Fumarate (Quetiapine Fumarate 25 Mg Tablet) 25 mg PO HS [facility] Stop: 11/29/24 20:59 Last Admin: 11/01/24 20:41 Dose: 25 mg Discontinued Medications Acetaminophen (Acetaminophen 325 Mg Tablet) 650 mg PO Q6HR PRN PRN Reason: Pain 1-4 Stop: 11/28/24 11:51 Hydrocodone Bitart/Acetaminophen (Hydrocodone/Apap 10/325 Tab) 1 tab PO Q4HR PRN PRN Reason: PAIN SCALE 7-10 (Severe Stop: 11/03/24 10:01 Last Admin: 10/29/24 11:50 Dose: 1 tab Alprazolam (Alprazolam 0.25 Mg Tablet) 0.5 mg PO X1 ONE Stop: 10/31/24 11:34 Last Admin: 10/31/24 13:12 Dose: 0.5 mg Aspirin (Aspirin Ec 81 Mg Tabec) 81 mg PO X1 ONE Stop: 10/29/24 09:41 Last Admin: 10/29/24 11:58 Dose: 81 mg Heparin Sodium (Beef Lung) (Heparin Sod Lock Syr 100 Unit/Ml) 500 unit [place] X1 ONE Stop: 11/01/24 14:00 Last Admin: 11/01/24 14:01 Dose: 500 unit Hydralazine HCl (Hydralazine Inj 20 Mg/Ml Vial) 10 mg IV X1 ONE Stop: 10/29/24 05:14 Last Admin: 10/29/24 05:18 Dose: 10 mg Hydralazine HCl (Hydralazine Hcl 25 Mg Tablet) 25 mg PO Q8H PRN PRN Reason: SBP > 170 Stop: 11/28/24 10:01 Piperacillin/Tazobactam/Dextrose (Zosyn) 3.375 gm in 50 mls @ 100 mls/hr IV X1 ONE Stop: 10/29/24 06:33 Last Infusion: 10/29/24 06:50 Dose: Infused Piperacillin/Tazobactam/Dextrose (Zosyn) 3.375 gm in 50 mls @ 12.5 mls/hr IV Q8HR [place] Stop: 11/05/24 13:59 Last Admin: 10/30/24 05:00 Dose: 12.5 mls/hr Vancomycin/Sodium Chloride (Vancomycin/Ns 1 Gm Ivpb) 200 mls @ 120 mls/hr IV X1 ONE Stop: 10/29/24 11:54 Last Admin: 10/29/24 11:58 Dose: 120 mls/hr Vancomycin/Sodium Chloride (Vancomycin/Ns 750 Mg Ivpb) 750 mg in 150 mls @ 120 mls/hr IV Q12H [place]; Protocol Stop: 11/06/24 09:59 Last Admin: 10/30/24 10:44 Dose: 120 mls/hr Ibuprofen (Ibuprofen Tab 600 Mg Tablet) 600 mg PO Q6H PRN PRN Reason: PAIN SCALE 1-3 (mild Stop: 11/28/24 10:01 Labetalol HCl (Labetalol Inj 5 Mg/Ml Vial 20 Ml) 10 mg IVP X1 ONE Stop: 10/29/24 11:58 Lidocaine HCl (Lidocaine Inj Pf 1% 30 Ml Vial) 2 ml INFL X1 ONE Stop: 11/01/24 14:00 Last Admin: 11/01/24 14:01 Dose: 2 ml Melatonin (Melatonin 3 Mg Tablet) 3 mg PO HS ONE Stop: 10/29/24 20:08 Last Admin: 10/29/24 20:51 Dose: 3 mg Morphine Sulfate (Morphine Sulf Inj 10 Mg/Ml Vial) 2 mg IVP Q4HR PRN PRN Reason: Pain 7-10 Stop: 11/03/24 11:55 Last Admin: 10/30/24 10:44 Dose: 2 mg Oxycodone/Acetaminophen (Oxycodone/Apap 5/325 Tablet) 1 tab PO Q6H PRN PRN Reason: PAIN SCALE 4-6 (Moderate Stop: 11/03/24 10:01 Last Admin: 10/29/24 22:39 Dose: 1 tab Pharmacy Consult (Vancomycin Pharmacy To Dose 1 Each Each) 1 each IV QDAY PRN PRN Reason: CONSULT Stop: 11/29/24 08:59 Sodium Hypochlorite (Sod Hypochlorite 1/2 Str 473 Ml Btl) 473 ml IRRIG X1 ONE Stop: 10/30/24 20:24 Last Admin: 10/30/24 21:08 Dose: 1 applicatio Assessment & Plan Plan 69 year old female with PMH of hypertension, left foot osteomyelitis , DM-2 GERD, arterial stenosis, Parkinsonism and arterial calcification who presented to the ED with concerns of chest pain and left foot pain, was admitted for intractable pain, hypertension, and surgical evaluation of foot. Neurology consulted for Parkinsonism. Is currently taking carbidopa and levodopa . Current vitals BP 111/92,,hr-92, RR?14, saturating well on room air. Labs shows WBC 10.9, hemoglobin 9.7, platelet 506, sodium?135, glucose?199 Parkinson's disease -She has 30 yrs history of Parkinsons -She was following Dr Feldman outpatient before and her insurance changed and she could not follow up with her -Continue home CARBIDOPA LEVODOPA 25?100 TID -Will add Pramipexole 0.25 TID -Follow up with Dr Bedoya outpatient after discharge . Rest of medical management as per primary team Case discussed with my attending Dr Elke Rodriguez MD,PGY-3 Attending Provider Attestation/Addendum I personally have seen and examined the patient at the bedside and agree with resident findings, assessment and plan of care. Will continue with the Sinemet and I added pramipexole for additional control of tremors. Will continue to watch her closely for any behavioral problems worsening or visual hallucinations.
[2024-11-02] MEDS: INSULIN GLARGINE (Lantus) 5 UNIT/0.05 ML (PER 5 UNITS) SC (10:52)
--- NOTE | 2024-11-02 13:47 | XR_ITS ---
Examination: CTA abdominal aorta iliofemoral runoff. 2-D sagittal coronal reconstructions. 3-D reconstructions, vascular Exam date and time: November 02, 2024 1859 hours INDICATIONS: Nonhealing wound left foot including few region, osteomyelitis posterior plantar surface of the calcaneus on MRI foot study October 31, 2004 Technique: Multiple CTA images of the abdominal aorta iliofemoral runoff arterial vessels, 2.0 mm slice thickness, post intravenous administration 130 cc [id number] 2-D sagittal coronal reconstructions. 3-D reconstructions, vascular 3-D postprocessing, including vascular maximum intensity projection images, 3-D volume rendering Low dose protocols were performed. One or more of the following dose reduction techniques were used; automated exposure control, adjustment of the mA and/or KV according to patient size, use of iterative reconstruction technique. Findings: Transverse dimension ascending thoracic aorta 4.0 cm Pulmonary artery segments are not enlarged No pulmonary artery emboli noted Moderate calcification left anterior descending left circumflex coronary arteries Liver mildly irregular in contour Distended gallbladder no definite stones Spleen not enlarged No pancreatic mass Moderate bilateral renal parenchymal scar formation Left ureteral stent satisfactory position Abundant stool in the colon 20 mm fat-containing umbilical hernia Normal appendix No bowel obstruction Atrophic uterus Urinary bladder intact Heavy calcification abdominal aorta no aneurysmal dilatation. Very heavy calcification origin renal arteries Heavy calcification common iliac and external iliac and common femoral arteries without significant stenoses Heavy calcification right superficial femoral artery with 90% stenosis distal right superficial femoral artery axial image 332 Suspicious for occlusion of the distal right superficial femoral artery axial image 398, extensive artifacts from the patient's knee arthroplasty Significant patient motion right leg at the level of the knee Right posterior tibial and anterior tibial arteries fill to the ankle Heavy calcification left superficial femoral artery without critical stenoses Left popliteal artery fills about critical stenoses Extremely heavy calcification of the trifurcation vessels which appear to fill to the ankle IMPRESSION: 90% stenosis distal right superficial femoral artery Suspicious for occlusion of the distal right superficial femoral artery axial image 398 There is severe calcification of the superficial femoral arteries popliteal arteries and especially the trifurcation arteries below the knees which makes flow assessment very difficult Recommend arterial Doppler sonography for the best assessment of flow and stenoses involving the trifurcation arteries below the knees
[2024-11-02] MEDS: PRAMIPEXOLE 0.25 MG TABLET PO ×2 (13:53→22:24)
--- NOTE | 2024-11-02 15:42 | PD.SURPROG ---
Documentation for date of: 11/02/24 Subjective Subjective Brief History: 69F with HTN, DM2, chronic left osteomyelitis who was admitted 10/29 with chest pain and left foot pain. Chest pain has improved and an acute cardiac event was ruled out. Regarding her left heel, patient has been treated at the wound care center, has undergone angioplasty of the right lower extremity which allowed for healing of wounds on that foot and is now planned for angiogram of the left lower extremity on 12/01/24 Patient underwent MRI yesterday showing early osteomyelitis, WBC has hovered around 11-13 Narrative: WBC normal today, no new complaints Exam Vital Signs Temp Pulse Resp BP Pulse Ox O2 Del Method 97.4 F 72 16 146/68 H 97 Room Air 11/02/24 12:00 11/02/24 12:00 11/02/24 12:00 11/02/24 12:00 11/02/24 12:00 11/02/24 12:00 Constitutional Constitutional: no acute distress Routine Respiratory Exam Respiratory: Present no resp distress Routine Extremities Exam Comments: left lower extremity heel wound with mild surrounding erythema, necrotic tissue at lateral aspect, no fluctuance Results Results: Laboratory Laboratory results: results reviewed Results: Imaging Imaging narrative: MRI reviewed Assessment & Plan Plan 69F with HTN, DM2, chronic left osteomyelitis who was admitted 10/29 with chest pain and left foot pain, findings consistent with patient's known chronic osteomyelitis although with worsening of her left heel wound. I spoke to pt's vascular surgeon Dr Rudd today who recommended excisional debridement and CTA; we agree pt will likely need BKA but that it is not urgent, and that if there are any findings that are amenable to revascularization this can be addressed before amputation Excisional debridement today F/u CTA
[2024-11-02] MEDS: HYDROmorphone INJ 2 MG/ML VIAL 1 MG IVP (15:44)
--- NOTE | 2024-11-02 16:03 | PD.SURPROC ---
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
[2024-11-02] MEDS: QUEtiapine FUMARATE 25 MG TABLET PO (22:25)
[2024-11-02] MEDS: ATORVASTATIN CALCIUM 10 MG TABLET PO (22:26)
--- NOTE | 2024-11-02 22:48 | PD.ORTHCONPN ---
Subjective Subjective Brief History: Patient is a 69-year-old who was admitted on 10/29/2024 with epigastric pain and and left foot pain. It is now felt that her chest pain is not acute cardiac event. She is followed in the wound clinic for left foot osteomyelitis with increasing pain. Narrative: Patient continues to have pain in the left ankle. Dr. Callahan saw her and did debridement Exam Vital Signs Temp Pulse Resp BP Pulse Ox O2 Del Method 97.0 F 88 25 H 110/58 L 100 Room Air 11/02/24 20:00 11/02/24 20:00 11/02/24 20:00 11/02/24 20:00 11/02/24 20:00 11/02/24 20:00 Blood pressure 110/58 Narrative Exam She is alert and oriented. Dressing on the left lower extremity Objective - Ortho Labs 11/02/24 04:03 11/02/24 04:03 Labs: Laboratory Results - last 24 hr 11/02/24 04:03 WBC 10.9 RBC 3.66 L Hgb 9.7 L Hct 30.1 L MCV 82 MCH 26.5 MCHC 32.2 RDW Std Deviation 53.3 H Plt Count 506 H D Neut % (Auto) 71 Lymph % (Auto) 19 [place] % (Auto) 6 Eos % (Auto) 2 Baso % (Auto) 1 Neut # (Auto) 7.7 Lymph # (Auto) 2.1 [place] # (Auto) 0.6 Eos # (Auto) 0.2 Baso # (Auto) 0.1 Immature Gran # (Auto) 0.16 H Absolute Nucleated RBC 0.00 Immature Gran % 2 H Nucleated RBC % 0 Sodium 135 L Potassium 3.9 Chloride 102 Carbon Dioxide 23.7 Anion Gap 9 BUN 13 Creatinine 0.7 Estim Creat Clear Calc 59.1 L eGFR > 60 BUN/Creatinine Ratio 19 Glucose 199 H Calculated Osmolality 276 Calcium 9.1 Corrected Calcium 9.7 Phosphorus 2.7 Magnesium 1.9 Total Bilirubin < 0.2 L AST 10 ALT < 7 L Alkaline Phosphatase 108 Total Protein 6.1 Albumin 3.2 L Globulin 2.9 Albumin/Globulin Ratio 1.1 L Hemoglobin 9.7 Assessment & Plan Assessment Additional comments: Patient was seen by Dr. Callahan and she discussed her situation with Dr. Rudd. Both of them agreed to handle. With the present regimen and evaluate progress. This is very nicely handled by general surgery and vascular surgery. I told her that she is in great hands and that at this point my prayers will continue to be with her and orthopedics can be consulted as needed. Again general surgery and vascular surgery certainly have this and are experts with diabetes Plan I am signing off I told her I would continue to pray for her she is such a nice lady. Documentation for date of: 11/02/24
--- NOTE | 2024-11-02 22:52 | PD.ORTHCONPN ---
Subjective Subjective Brief History: Patient is a 69-year-old who was admitted on 10/29/2024 with epigastric pain and and left foot pain. It is now felt that her chest pain is not acute. Narrative: Patient seen by Dr. Callahan and her situation was discussed with Dr. Rudd. They have a plan and at this point orthopedics will continue to participate in prayer. He is to find surgeons have it well under hand Exam Vital Signs Temp Pulse Resp BP Pulse Ox O2 Del Method 97.0 F 88 25 H 110/58 L 100 Room Air 11/02/24 20:00 11/02/24 20:00 11/02/24 20:00 11/02/24 20:00 11/02/24 20:00 11/02/24 20:00 Blood pressure 110/58 Objective - Ortho Labs 11/02/24 04:03 11/02/24 04:03 Labs: Laboratory Results - last 24 hr 11/02/24 04:03 WBC 10.9 RBC 3.66 L Hgb 9.7 L Hct 30.1 L MCV 82 MCH 26.5 MCHC 32.2 RDW Std Deviation 53.3 H Plt Count 506 H D Neut % (Auto) 71 Lymph % (Auto) 19 [place] % (Auto) 6 Eos % (Auto) 2 Baso % (Auto) 1 Neut # (Auto) 7.7 Lymph # (Auto) 2.1 [place] # (Auto) 0.6 Eos # (Auto) 0.2 Baso # (Auto) 0.1 Immature Gran # (Auto) 0.16 H Absolute Nucleated RBC 0.00 Immature Gran % 2 H Nucleated RBC % 0 Sodium 135 L Potassium 3.9 Chloride 102 Carbon Dioxide 23.7 Anion Gap 9 BUN 13 Creatinine 0.7 Estim Creat Clear Calc 59.1 L eGFR > 60 BUN/Creatinine Ratio 19 Glucose 199 H Calculated Osmolality 276 Calcium 9.1 Corrected Calcium 9.7 Phosphorus 2.7 Magnesium 1.9 Total Bilirubin < 0.2 L AST 10 ALT < 7 L Alkaline Phosphatase 108 Total Protein 6.1 Albumin 3.2 L Globulin 2.9 Albumin/Globulin Ratio 1.1 L Hemoglobin 9.7 Assessment & Plan Assessment Additional comments: I told her I would continue to pray for her. I told her that Dr. Rudd and Dr. Callahan will continue to advise her and care for her Plan I am signing off. It was an honor to participate in her care Documentation for date of: 11/02/24
[2024-11-03] VITALS (11 sets, daily range): BP systolic 104–137; BP diastolic 48–62; PULSE 76–98; RESP 16–19; TEMP 36.4–37.2; O2SAT 91–98; BMI 23.3
--- NOTE | 2024-11-03 04:02 | EKG_ITS ---
[facility] Test Date: 2024-11-03 Pat Name: KEO KIRAN [facility] Female [employer] Operator: JUANCARLOS : 1955 Requested By: Madhu Carpenter Order Number: [id number] Reading MD: Madhu Carpenter Measurements Intervals [place] Rate: 86 P: 55 FL: 168 QRS: -68 QRSD: 142 T: 7 QT: 399 QTc: 479 Interpretive Statements SINUS RHYTHM RIGHT BUNDLE BRANCH BLOCK [120+ ms QRS DURATION, UPRIGHT V1, 40+ ms S IN I/aVL/V4/V5/V6] LEFT ANTERIOR FASCICULAR BLOCK [QRS AXIS <= -45, QR IN I, RS IN II] Compared to ECG 10/29/2024 04:26:03 Myocardial infarct finding no longer present /store/S0/[id number].pdf
--- NOTE | 2024-11-03 04:02 | PC.NURSE ---
Addendum entered by Lobo Rico RN 11/03/24 04:03: EKG ordered by Dr. Carpenter Original Note: Dr. Carpenter made aware that patients rn cardiac rehab is showing a bundle branch block since midnight. No new orders.
[2024-11-03] MEDS: HYDROmorphone INJ 2 MG/ML VIAL 0.5 MG IVP ×4 (04:51→21:06)
[2024-11-03] MEDS: CARBIDOPA/LEVODOPA 25/100 MG TABLET 1 TAB PO ×3 (05:22→21:16)
[2024-11-03] MEDS: PRAMIPEXOLE 0.25 MG TABLET PO ×3 (05:22→21:16)
[2024-11-03] MEDS: LEVOTHYROXINE SODIUM 88 MCG TABLET PO (05:22)
[2024-11-03 06:15] LABS: Basophils # (Auto) 0.1 Thou/mm3 (0.0-0.2); Basophils % (Auto) 1 % (0-2.5); Eosinophils # (Auto) 0.3 Thou/mm3 (0.0-0.5); Eosinophils % (Auto) 2 % (0-10); Hematocrit 28.2 % (36.0-46.0); Hemoglobin 8.9 g/dL (12.0-16.0); Immature Granulocytes % (Auto) 1 % (0-0); Immature Granulocytes Auto 0.13 Thou/mm3 (0.00-0.00); Lymphocytes # (Auto) 2.6 Thou/mm3 (1.0-4.8); Lymphocytes % (Auto) 21 % (10-50); Mean Corpuscular HGB Conc 31.6 g/dl (31.0-37.0); Mean Corpuscular Hemoglobin 26.3 pg (25.0-35.0); Mean Corpuscular Volume 83 fL (80-100); Monocytes # (Auto) 0.9 Thou/mm3 (0.0-0.8); Monocytes % (Auto) 7 % (0-12); Neutrophils # (Auto) 8.8 Thou/mm3 (1.8-7.7); Neutrophils % (Auto) 69 % (37-80); Nucleated Red Blood Cell % 0 /100 WBC (0); Platelet Count 496 Thou/mm3 (140-440); RDW Standard Deviation 53.5 fL (36.4-46.3); Red Blood Count 3.38 Miln/mm3 (4.00-5.20); White Blood Count 12.8 Thou/mm3 (3.6-11.0)
--- NOTE | 2024-11-03 06:37 | PD.SURCONS ---
HPI Consult details Reason for consultation narrative: 69 y/o woman with chronic left heel ulceration. Admitted for infection of the wound. CTA runoff was performed that shows three vessel runoff to the foot with extensive calcification including the arteries of the foot. Debridement of the heel by Dr Mcghee was reported to produce no bleeding from the wound bed. Meds Home Medications and Allergies Home Medications ?Medication ?Instructions ?Recorded ?Confirmed ?Type atorvastatin 10 mg tablet 10 mg PO QDAY 10/19/24 10/19/24 History carvedilol 3.125 mg tablet 3.125 mg PO BID 10/19/24 10/19/24 History duloxetine 20 mg capsule,delayed 20 mg PO DAILY 10/19/24 10/19/24 History release sprinkle ferrous sulfate 325 mg (65 mg 325 mg PO QDAY 10/19/24 10/19/24 History iron) tablet (Iron (ferrous sulfate)) gabapentin 600 mg tablet 600 mg PO BID 10/19/24 10/19/24 History levodopa 100 mg tablet 100 mg PO TID 10/19/24 10/19/24 History sitagliptin phosphate 25 mg tablet 25 mg PO QDAY 10/19/24 10/19/24 History (Januvia) Allergies Allergy/AdvReac Type Severity Reaction Status Date / Time No Known Allergies Allergy Verified 10/20/24 14:27 Exam Vital Signs Temp Pulse Resp BP Pulse Ox O2 Del Method 97.6 F 76 18 130/48 L 95 Room Air 11/03/24 04:00 11/03/24 04:00 11/03/24 04:00 11/03/24 04:00 11/03/24 04:00 11/03/24 04:00 Routine Extremities Exam Comments: Physical examination of the left foot showed it to be warm, pink and well perfused. The left heel wound has mixed granulation tissue and slough with a surrounding cellulitis and a foul smell. Pulses could not be palpated but strong Doppler pedal pulses were present. Assessment & Plan Additional Assessment Additional comments: The left foot appears to have adequate blood flow on physical examination and CTA. There is no opportunity for further improvement. The wound bed is avascular according to findings at debridement and with an associated osteomyelitis is unlikely to heal. Plan Left below knee amputation is recommended
[2024-11-03 06:55] LABS: Albumin, Serum 3.2 gm/dL (3.4-4.8); Albumin/Globulin Ratio 1.2 (1.2-2.2); Alkaline Phosphatase 95 U/L (46-116); Anion Gap 7 (7-16); BUN/Creatinine Ratio 16 Ratio (12-20); Bilirubin,Total < 0.2 mg/dL (0.3-1.2); Blood Urea Nitrogen 11 mg/dL (9-23); Calcium 8.7 mg/dL (8.3-10.6); Calcium (Corrected) 9.3 mg/dL (8.5-10.1); Carbon Dioxide 26.1 mMol/L (20.0-31.0); Chloride 100 mMol/L (98-107); Creatinine (Component) 0.7 mg/dL (0.6-1.3); Estimated Creatinine Clearance 59.1 mL/min (>60); Globulin 2.7 gm/dL (2.3-3.5); Glucose 152 mg/dL (74-106); Magnesium 1.8 mg/dL (1.6-2.6); Osmolality,Calculated 268 (275-295); Phosphorous 2.9 mg/dL (2.4-5.1); Potassium 3.6 mMol/L (3.4-5.1); Sodium 133 mMol/L (136-145); Total Protein 5.9 gm/dL (5.7-8.2); eGFR > 60 See Note
[2024-11-03 07:03] LABS: Alanine Aminotransferase < 7 U/L (10-49); Aspartate Amino Transferase < 8 U/L (0-34)
[2024-11-03] MEDS: DOXYCYCLINE 100 MG TABLET PO ×2 (08:10→21:06)
[2024-11-03] MEDS: carVEDILOL 3.125 MG TABLET PO ×2 (08:10→16:54)
[2024-11-03] MEDS: GABAPENTIN 300 MG CAPSULE 600 MG PO ×2 (08:10→21:06)
[2024-11-03] MEDS: DULoxetine HCL 20 MG CAPSULE PO (08:11)
[2024-11-03] MEDS: cefTRIAXone 2 GM in SODIUM CHLORIDE 0.9% (P) 50 ML IV (08:11)
[2024-11-03] MEDS: PANTOPRAZOLE INJ 40 MG VIAL IVP (08:12)
[2024-11-03] MEDS: INSULIN LISPRO (AdmeLOG) 1 UNIT/0.01 ML UNIT SC ×3 (08:23→16:54)
[2024-11-03] MEDS: INSULIN GLARGINE (Lantus) 5 UNIT/0.05 ML (PER 5 UNITS) SC (08:24)
[2024-11-03] MEDS: SOD HYPOCHLORITE 1/4 STR 473 ML BTL IRRIG (08:25)
[2024-11-03] MEDS: BALSAM PERU/CASTOR OIL (Venelex) 60 GM TUBE TOP ×2 (08:25→21:06)
--- NOTE | 2024-11-03 09:08 | PD.SURPROG ---
Documentation for date of: 11/03/24 Subjective Subjective Brief History: 69F with HTN, DM2, chronic left osteomyelitis who was admitted 10/29 with chest pain and left foot pain. Chest pain has improved and an acute cardiac event was ruled out. Regarding her left heel, patient has been treated at the wound care center, has undergone angioplasty of the right lower extremity which allowed for healing of wounds on that foot and is now planned for angiogram of the left lower extremity on 12/01/24 Patient underwent MRI yesterday showing early osteomyelitis, WBC has hovered around 11-13 Narrative: No complaints today, CTA showed three-vessel runoff to the foot Exam Vital Signs Temp Pulse Resp BP Pulse Ox O2 Del Method 97.6 F 89 16 137/59 H 96 Room Air 11/03/24 08:00 11/03/24 08:10 11/03/24 08:00 11/03/24 08:10 11/03/24 08:00 11/03/24 08:00 Constitutional Constitutional: no acute distress Routine Respiratory Exam Respiratory: Present no resp distress Results Results: Laboratory Laboratory results: results reviewed Results: Imaging CT scan - abdomen: report reviewed Assessment & Plan Plan 69F with HTN, DM2, chronic left osteomyelitis who was admitted 10/29 with chest pain and left foot pain, findings consistent with patient's known chronic osteomyelitis. CTA showed three-vessel runoff, vascular surgery determined there is no role for angioplasty. I spoke to patient and her with an in-person asl interpreter today to discuss amputation, and explained benefits/risks including bleeding, infection and neuropathic pain. Understandably they would like to first discuss this with their sons. Considering the chronic nature of this infection, surgery is not urgent; to allow time for consideration and also in light of the upcoming holidays I have scheduled the surgery for November 17. All questions were answered and patient and are agreeable with this plan Planned for left BKA 11/17/24 at 730 OK for dc from my standpoint
--- NOTE | 2024-11-03 09:54 | PD.IDPROG ---
Subjective Subjective Interval history: no change in recs. Exam Vital Signs Temp Pulse Resp BP Pulse Ox O2 Del Method 97.6 F 89 16 137/59 H 96 Room Air 11/03/24 08:00 11/03/24 08:10 11/03/24 08:00 11/03/24 08:10 11/03/24 08:00 11/03/24 08:00 Objective - Internal Medicine Labs 11/03/24 05:23 11/03/24 05:23 Labs: Laboratory Results - last 24 hr 11/03/24 05:23 WBC 12.8 H RBC 3.38 L Hgb 8.9 L Hct 28.2 L MCV 83 MCH 26.3 MCHC 31.6 RDW Std Deviation 53.5 H Plt Count 496 H Neut % (Auto) 69 Lymph % (Auto) 21 [place] % (Auto) 7 Eos % (Auto) 2 Baso % (Auto) 1 Neut # (Auto) 8.8 H Lymph # (Auto) 2.6 [place] # (Auto) 0.9 H Eos # (Auto) 0.3 Baso # (Auto) 0.1 Immature Gran # (Auto) 0.13 H Absolute Nucleated RBC 0.00 Immature Gran % 1 H Nucleated RBC % 0 Sodium 133 L Potassium 3.6 Chloride 100 Carbon Dioxide 26.1 Anion Gap 7 BUN 11 Creatinine 0.7 Estim Creat Clear Calc 59.1 L eGFR > 60 BUN/Creatinine Ratio 16 Glucose 152 H Calculated Osmolality 268 L Calcium 8.7 Corrected Calcium 9.3 Phosphorus 2.9 Magnesium 1.8 Total Bilirubin < 0.2 L AST < 8 ALT < 7 L Alkaline Phosphatase 95 Total Protein 5.9 Albumin 3.2 L Globulin 2.7 Albumin/Globulin Ratio 1.2 Assessment & Plan A&P Narrative L heel osteo, esr >130, crp 7.9, prior rx with po clinda noted. bc pos on admit for gnr on 08/14/24, likely unrelated at this time swab cx with gnr with variable R noted. and cx with I s to rocephin noted. pvd dm II, a1c 6.5 hld by meds hypothyroid by meds htn by meds still suggest rocephin 2 gm iv daily and po doxy 100 mg po bid for 6 weeks with weekly cbc, renal panel, esr and line removal at end of rx. keep appt next month with vascular as problem may be more circulatory than other. abx only kill germs. they do not heal wounds. need to avoid pressure to area and keep elevated while waiting for vascular to see her in November. pt's spouse suggests that they have an appt with vascular in November. please avoid swab cx in the future. Operative cx from sterile sites preferred. pt to have vascular procedure in a few weeks. seems timely will see again prn Time Spent With Patient Time: Total time spent is greater than 50% in coordination of care (as documented) at patient's floor/unit and/or counseling patient:
--- NOTE | 2024-11-03 10:04 | ESPR_ITS ---
Addendum Progress Note Addendum Date of report being addended: 11/03/24 Narrative: L foot limited, vascular eval noted. amputation advised. pt is sinhala speaking only, favor rocephin and po doxy thru 12/11 with weekly cbc, renal panel, esr. has rt picc already, so seems ready to go
--- NOTE | 2024-11-03 10:52 | PD.RESPRO ---
Documentation for date of: 11/03/24 Subjective Subjective Interval history: No overnight events, patient seen and examined this AM. Refers improvement in foot pain. Denies headeache, dizziness, nausea or vomiting. Exam Vital Signs Temp Pulse Resp BP Pulse Ox O2 Del Method 97.6 F 89 16 137/59 H 96 Room Air 11/03/24 08:00 11/03/24 08:10 11/03/24 08:00 11/03/24 08:10 11/03/24 08:00 11/03/24 08:00 Narrative Exam Gen: AAOx3, elderly female, in moderate distress from pain HEENT: NCAT, PERRLA, EOMI, MMM, no LAD CVS: normal S1, S2. RRR. No MRG. Resp: CTA B/L. No rhonchi, rales, crackles or wheezing Abd: soft, non-tender, non-distended. BS+ in all 4 quadrants MSK: Good ROM in BUE & BLE. Thin extremities. R arm wound covered with allevyn. Left foot wrapped. R foot with 2nd and 3rd toe amputation. Dec cap refill in left foot (~7 sec) Neuro: CN II-XII grossly intact. Occasional intentional tremors noted Objective Labs 11/04/24 04:24 11/04/24 04:24 Labs: Laboratory Results - last 24 hr 11/03/24 05:23 WBC 12.8 H RBC 3.38 L Hgb 8.9 L Hct 28.2 L MCV 83 MCH 26.3 MCHC 31.6 RDW Std Deviation 53.5 H Plt Count 496 H Neut % (Auto) 69 Lymph % (Auto) 21 [place] % (Auto) 7 Eos % (Auto) 2 Baso % (Auto) 1 Neut # (Auto) 8.8 H Lymph # (Auto) 2.6 [place] # (Auto) 0.9 H Eos # (Auto) 0.3 Baso # (Auto) 0.1 Immature Gran # (Auto) 0.13 H Absolute Nucleated RBC 0.00 Immature Gran % 1 H Nucleated RBC % 0 Sodium 133 L Potassium 3.6 Chloride 100 Carbon Dioxide 26.1 Anion Gap 7 BUN 11 Creatinine 0.7 Estim Creat Clear Calc 59.1 L eGFR > 60 BUN/Creatinine Ratio 16 Glucose 152 H Calculated Osmolality 268 L Calcium 8.7 Corrected Calcium 9.3 Phosphorus 2.9 Magnesium 1.8 Total Bilirubin < 0.2 L AST < 8 ALT < 7 L Alkaline Phosphatase 95 Total Protein 5.9 Albumin 3.2 L Globulin 2.7 Albumin/Globulin Ratio 1.2 Quality Measures Quality Measures VTE prophylaxis (SCDs) Advance care planning discussed with:: patient Assessment & Plan Assessment Current Active Medications: Generic Name Dose Route Start Last Admin Trade Name Freq PRN Reason Stop Dose Admin Acetaminophen 650 mg 10/29/24 10:02 11/01/24 14:31 Acetaminophen 325 Mg Tablet PO 11/28/24 10:01 650 mg Q6H PRN Administration Fever >100.4 Acetaminophen 650 mg 10/29/24 11:59 Acetaminophen 325 Mg Tablet PO 11/28/24 11:51 Q6HR PRN Pain 1-3 Hydrocodone Bitart/Acetaminophen 1 tab 10/30/24 10:48 11/01/24 23:25 Hydrocodone/Apap 5/325 Tablet PO 11/04/24 10:47 1 tab Q6HR PRN Administration PAIN SCALE 4-6 (Moderate Atorvastatin Calcium 10 mg 10/30/24 21:00 11/02/24 22:26 Atorvastatin Calcium 10 Mg Tablet PO 11/29/24 20:59 10 mg HS [place] Administration Balsam Digna/Goodman Oil 0 gm 10/31/24 21:00 11/03/24 08:25 Balsam Digna/Goodman Oil (Venelex) 60 Gm Tube TOP 11/30/24 20:59 1 applicatio BID [place] Administration Carbidopa/Levodopa 1 tab 10/30/24 14:00 11/03/24 05:22 Carbidopa/Levodopa 25/100 Mg Tablet PO 11/29/24 13:59 1 tab TID [place] Administration Carvedilol 3.125 mg 10/29/24 17:30 11/03/24 08:10 Carvedilol 3.125 Mg Tablet PO 11/28/24 17:29 3.125 mg BIDWM [place] Administration Dextrose 25 ml 10/29/24 12:31 Dextrose 50%-Water Inj 50 Ml Syringe IV 11/28/24 12:30 Q15MIN PRN BG 50-70 responsive npo pt Dextrose 50 ml 10/29/24 12:31 Dextrose 50%-Water Inj 50 Ml Syringe IV 11/28/24 12:30 Q15MIN PRN BG <50 OR BG <70 & pt unresponsive Doxycycline Hyclate 100 mg 10/30/24 11:00 11/03/24 08:10 Doxycycline 100 Mg Tablet PO 11/06/24 10:59 100 mg BID [place] Administration Duloxetine HCl 20 mg 10/30/24 10:30 11/03/24 08:11 Duloxetine Hcl 20 Mg Capsule PO 11/29/24 10:29 20 mg QDAY [place] Administration Gabapentin 600 mg 10/30/24 10:30 11/03/24 08:10 Gabapentin 300 Mg Capsule PO 11/29/24 10:29 600 mg BID [place] Administration Glucagon 1 mg 10/29/24 12:31 Glucagon Inj 1 Mg Vial IM Q15MIN PRN BG <70, and no IV access Hydralazine HCl 25 mg 10/30/24 17:46 10/31/24 17:18 Hydralazine Hcl 25 Mg Tablet PO 11/28/24 10:01 25 mg Q8H PRN Administration SBP >165, hold if HR >99 Hydromorphone HCl 0.5 mg 10/30/24 10:47 11/03/24 08:22 Hydromorphone Inj 2 Mg/Ml Vial IVP 11/04/24 10:46 0.5 mg Q4HR PRN Administration Pain 7-10 Ceftriaxone Sodium 2 gm/ 50 mls @ 100 mls/hr 10/30/24 11:00 11/03/24 08:11 Sodium Chloride IV 11/06/24 10:59 100 mls/hr QDAY [place] Administration Insulin Glargine 5 unit 11/02/24 10:00 11/03/24 08:24 Insulin Glargine (Lantus) 5 Unit/0.05 Ml (Per 5 Units) SC 12/02/24 09:59 5 unit QDAY [place] Administration Insulin Human Lispro 0 unit 10/29/24 17:00 11/03/24 08:23 Insulin Lispro (Admelog) 1 Unit/0.01 Ml Unit SC 11/28/24 16:59 1 unit ACHS [place] Administration Protocol Levothyroxine Sodium 88 mcg 10/31/24 06:00 11/03/24 05:22 Levothyroxine Sodium 88 Mcg Tablet PO 11/30/24 05:59 88 mcg ACBR [place] Administration Pantoprazole Sodium 40 mg 10/30/24 09:00 12/20/24 08:12 Pantoprazole Inj 40 Mg Vial IVP 11/29/24 08:59 40 mg QDAY [place] Administration Pharmacy Consult 1 each 10/29/24 12:47 Pharmacy To Consult Pneumovacc XX 11/28/24 12:46 PRN PRN CONSULT Pramipexole Dihydrochloride 0.25 mg 11/02/24 14:00 11/03/24 05:22 Pramipexole 0.25 Mg Tablet PO 12/02/24 13:59 0.25 mg TID [place] Administration Quetiapine Fumarate 25 mg 10/30/24 21:00 11/02/24 22:25 Quetiapine Fumarate 25 Mg Tablet PO 11/29/24 20:59 25 mg HS [place] Administration Sodium Hypochlorite 473 ml 11/02/24 21:00 11/03/24 08:25 Sod Hypochlorite 1/4 Str 473 Ml Btl IRRIG 12/02/24 20:59 1 applicatio BID [place] Administration Plan 69 year old female with PMH of hypertension, left foot osteomyelitis , DM-2 GERD, arterial stenosis, Parkinsonism and arterial calcification who presented to the ED with concerns of chest pain and left foot pain, was admitted for intractable pain, hypertension, and surgical evaluation of foot. Neurology consulted for Parkinsonism. Is currently taking carbidopa and levodopa . Current vitals BP 111/92,,hr-92, RR?14, saturating well on room air. Labs shows WBC 10.9, hemoglobin 9.7, platelet 506, sodium?135, glucose?199 Parkinson's disease -She has 30 yrs history of Parkinsons -She was following Dr Feldman outpatient before and her insurance changed and she could not follow up with her -Continue home CARBIDOPA LEVODOPA 25?100 TID -Conitnue Pramipexole 0.25 TID *new med* -Follow up with Dr Bedoya outpatient after discharge . Rest of medical management as per primary team Case discussed with my attending Dr Elke Nava MD PGY3 Attending Provider Attestation/Addendum I personally have seen and examined the patient at the bedside and agree with resident findings, assessment and plan of care. Noted significant improvement in tremors with addition of pramipexole along with Sinemet. Encouraged her to participate with the physical therapy sessions
--- NOTE | 2024-11-03 10:53 | ECHO_ITS ---
Transthoracic Echo Report Ht (in): 63 Wt (lb): 131 Exam Location: [facility] Status: Inpatient Lease Out Worker: Bettye Humphrey Indications: Procedure Performed: BP: 133 / 61 HR: 85 Rhythm: Sinus Technical Quality: Technically difficult study MEASUREMENTS (Male / Female) Normal Values 2D ECHO LV Diastolic Diameter PLAX 4.0 cm 4.2 - 5.9 / 3.9 - 5.3 cm LV Systolic Diameter PLAX 2.8 cm IVS Diastolic Thickness 1.0 cm 0.6 - 1.0 / 0.6 - 0.9 cm LVPW Diastolic Thickness 1.1 cm 0.6 - 1.0 / 0.6 - 0.9 cm LV Relative Wall Thickness 0.5 LVOT Diameter 1.6 cm LA Volume Index 26.1 cm?/m? 16 - 28 cm?/m? Ascending Aorta Diameter 3.2 cm M-MODE Aortic Root Diameter MM 2.8 cm LA Systolic Diameter MM 3.7 cm LA Ao Ratio MM 1.3 AV Cusp Separation MM 2.0 cm DOPPLER AV Peak Velocity 150.7 cm/s AV Peak Gradient 9.1 mmHg AV Mean Gradient 5.0 mmHg AV Velocity Time Integral 30.1 cm LVOT Peak Velocity 126.0 cm/s LVOT Peak Gradient 6.4 mmHg LVOT Velocity Time Integral 25.8 cm LVOT Cardiac Index 2701.7 cm?/min?m? AV Area Cont Eq vti 1.7 cm? AV Area Cont Eq pk 1.7 cm? MV Peak Velocity 103.0 cm/s MV Peak Gradient 4.2 mmHg MV Mean Velocity 66.1 cm/s MV Mean Gradient 2.0 mmHg MV Area PHT 4.8 cm? Mitral E Point Velocity 74.4 cm/s Mitral A Point Velocity 108.0 cm/s Mitral E to A Ratio 0.7 LV E' Lateral Velocity 7.4 cm/s Mitral E to LV E' Lateral Ratio 10.1 LV E' Septal Velocity 4.2 cm/s Mitral E to LV E' Septal Ratio 17.5 FINDINGS Left Ventricle Normal left ventricular size, wall thickness, systolic function with no obvious regional wall motion abnormalities. The ejection fraction is visually estimated at 55-60 %. Right Ventricle The right ventricle is normal in size and systolic function. Left Atrium The left atrium is normal by two-dimensional, color flow and Doppler imaging with no structural abnormalities, no thrombus formation present. Right Atrium The right atrium is normal by two-dimensional imaging, color flow and Doppler imaging with no struct ural abnormalities, no thrombus formation present. Atrial Septum The interatrial septum appears normal with no evidence of a shunt. Aorta The aorta is normal by two-dimensional, color flow and Doppler interrogation. Mitral Valve The mitral valve is normal by two-dimensional, color flow and Doppler interrogation. There is trace mitral valve regurgitation. Aortic Valve The aortic valve is trileaflet. Mild sclerosis without stenosis. There is no significant aortic ángel ve regurgitation. Tricuspid Valve The tricuspid valve is normal by two-dimensional, color flow and Doppler interrogation. There is tra ce tricuspid valve regurgitation. Pulmonic Valve There is no significant pulmonic valve regurgitation. Vessels The pulmonary artery appears normal. The inferior vena cava pulmonary and hepatic veins appear neo l. Pericardium The pericardium is normal by two-dimensional imaging. There is no significant pericardial effusion. CONCLUSIONS Indication: Cardiac clearance Normal LV size and function.Stage I diastolic dysfunction. Estimated EF 55-60% Normal RV size and function. Trace MR, TR. Mild AV sclerosis without stenosis. Alvaro Coffman (Electronically Signed) Final Date: 03 November 2024 18:04
--- NOTE | 2024-11-03 14:26 | PC.SS ---
Rounding note: pending patient's decision for amputation.
--- NOTE | 2024-11-03 15:39 | ESCONSULT_ITS ---
HPI Data of Consult Requesting Physician: Marin Singleton MD Admitting Provider: Dave Eastman DO Attending Provider: Marin Singleton MD Primary Care Provider: Armen Taylor MD Consult Narrative Reason for consult: Preop celarance History of present illness: 69-year-old female with past medical history of Parkinson disease (30 years), essential hypertension, arterial stenosis and arterial calcification, DM2, chronic left osteomyelitis, GERD, and hyperlipidemia was admitted to the hospital on 10/29/2024 due to left foot osteomyelitis as well as hypertensive emergency. In the ED patient came in with complaints of epigastric/substernal abdominal pain radiating to the right. Initially patient was hypertensive and afebrile. Initial labs showed WBC 15.4, Hgb 12, sodium 136, potassium 4.2, BUN 16, creatinine 0.9, lactic acid 2.2, magnesium 1.8, troponins less than 0.02, BNP 137, and UA was positive for leukocyte esterase. Initial imaging included chest x-ray which showed minor atelectasis of right middle lobe, foot CT which showed early osteomyelitis of posterior plantar surface, abdomen/ultrasound which showed gallbladder sludge, and monitoring bilateral renal parenchyma scar formation. EKG showed sinus rhythm with right bundle branch block. During my assessment patient stated that she had come into the hospital because of flank pain as well as chest pain. She described this chest pain as pressure- like and they lasted around the entire day that she was admitted. She stated that it did not get worse with breathing or with palpitations. She also mentioned that she had some palpitation, but denied any syncopal episodes, shortness of breath, lower extremity swelling, or dizziness. Patient states that she has not have any cardiac events in the past or any prior similar episodes. Patient was seen by vascular surgeon after she had an ID on 11/02/2024 and did not have any bleeding. Vascular surgeon recommended to move forward with BKA as CTA runoff showed extensive arterial calcification. Cardiology consulted for preop clearance. 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 HEENT: Denies hearing loss, Denies ear pain, Denies postnasal drip, Denies double vision, Denies blurry vision. Respiratory: Denies shortness of breath, Denies cough, Denies wheezing. Cardiovascular: Admits chest pain, Admits palpitations, Denies sudden loss of consciousness. GI: Denies blood in stool, Admits/Denies constipation, Admits/Denies abdominal pain, Denies difficulty swallowing, Denies nausea or vomit. : Denies urinary incontinence, Denies pain while urinating, Denies increased urinary frequency. MSK: Denies joint pain, Denies joint swelling, Denies numbness. Skin: Denies rash, Denies itching, Denies easy bruising. Neuro: Denies headaches, Denies dizziness, Denies seizures. 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 Anicteric, vision grossly intact. Ears: No ear pain, no ear discharge, Hearing grossly intact. Nose: No nasal discharge. Mouth/Throat: Dry mucous membranes, no redness, no lesions. Neck: Neck supple, non-tender, no cervical lymphadenopathy. Lungs: Clear KELLIE to auscultation and percussion, No accessory muscle use. Cardio: Normal S1/S2, regular rhythm, no murmurs, no JVD Abdomen: Soft, non-tender, no palpable masses, peristalsis present, no guarding or rebound. Extremities: Symmetrical, no significant deformities, no peripheral edema , non-tender, peripheral pulses presents, R foot with 2/3 toe amputation. L foot covered with clean dressing Skin: No rashes, no lesions, warm to touch. Neuro: Patient had constant unintentional movement, otherwise no focal neurological deficits appreciated. Psych: Cooperative, appropriate mood and effect. Results Labs 11/03/24 05:23 11/03/24 05:23 Labs: Short CBC 11/03/24 Range/Units 05:23 WBC 12.8 H (3.6-11.0) Thou/mm3 Hgb 8.9 L (12.0-16.0) g/dL Hct 28.2 L (36.0-46.0) % Plt Count 496 H (140-440) Thou/mm3 BMP 11/03/24 05:23 Sodium 133 L Potassium 3.6 Chloride 100 Carbon Dioxide 26.1 BUN 11 Creatinine 0.7 Glucose 152 H Calcium 8.7 Liver Function 11/03/24 Range/Units 05:23 Total Bilirubin < 0.2 L (0.3-1.2) mg/dL AST < 8 (0-34) U/L ALT < 7 L (10-49) U/L Alkaline Phosphatase 95 (46-116) U/L Albumin 3.2 L (3.4-4.8) gm/dL Quality Measures Quality Measures VTE prophylaxis (SCDs) Advance care planning discussed with:: patient and spouse Medications Home Medications and Allergies Home Medications ?Medication ?Instructions ?Recorded ?Confirmed ?Type atorvastatin 10 mg tablet 10 mg PO QDAY 10/19/24 10/19/24 History carvedilol 3.125 mg tablet 3.125 mg PO BID 10/19/24 10/19/24 History duloxetine 20 mg capsule,delayed 20 mg PO DAILY 10/19/24 10/19/24 History release sprinkle ferrous sulfate 325 mg (65 mg 325 mg PO QDAY 10/19/24 10/19/24 History iron) tablet (Iron (ferrous sulfate)) gabapentin 600 mg tablet 600 mg PO BID 10/19/24 10/19/24 History levodopa 100 mg tablet 100 mg PO TID 10/19/24 10/19/24 History sitagliptin phosphate 25 mg tablet 25 mg PO QDAY 10/19/24 10/19/24 History (Januvia) Allergies Allergy/AdvReac Type Severity Reaction Status Date / Time No Known Allergies Allergy Verified 10/20/24 14:27 Visit Medications Acetaminophen (Acetaminophen 325 Mg Tablet) 650 mg PO Q6H PRN PRN Reason: Fever >100.4 Stop: 11/28/24 10:01 Last Admin: 11/01/24 14:31 Dose: 650 mg Acetaminophen (Acetaminophen 325 Mg Tablet) 650 mg PO Q6HR PRN PRN Reason: Pain 1-3 Stop: 11/28/24 11:51 Hydrocodone Bitart/Acetaminophen (Hydrocodone/Apap 5/325 Tablet) 1 tab PO Q6HR PRN PRN Reason: PAIN SCALE 4-6 (Moderate Stop: 11/04/24 10:47 Last Admin: 11/01/24 23:25 Dose: 1 tab Atorvastatin Calcium (Atorvastatin Calcium 10 Mg Tablet) 10 mg PO HS [facility] Stop: 11/29/24 20:59 Last Admin: 11/02/24 22:26 Dose: 10 mg Balsam [place]/Gualala Oil (Balsam Digna/Gualala Oil (Venelex) 60 Gm Tube) 0 gm TOP BID [facility] Stop: 11/30/24 20:59 Last Admin: 11/03/24 08:25 Dose: 1 applicatio Carbidopa/Levodopa (Carbidopa/Levodopa 25/100 Mg Tablet) 1 tab PO TID [facility] Stop: 11/29/24 13:59 Last Admin: 11/03/24 13:19 Dose: 1 tab Carvedilol (Carvedilol 3.125 Mg Tablet) 3.125 mg PO BIDWM [facility] Stop: 11/28/24 17:29 Last Admin: 11/03/24 08:10 Dose: 3.125 mg Dextrose (Dextrose 50%-Water Inj 50 Ml Syringe) 25 ml IV Q15MIN PRN PRN Reason: BG 50-70 responsive npo pt Stop: 11/28/24 12:30 Dextrose (Dextrose 50%-Water Inj 50 Ml Syringe) 50 ml IV Q15MIN PRN PRN Reason: BG <50 OR BG <70 & pt unresponsive Stop: 11/28/24 12:30 Doxycycline Hyclate (Doxycycline 100 Mg Tablet) 100 mg PO BID [facility] Stop: 11/06/24 10:59 Last Admin: 11/03/24 08:10 Dose: 100 mg Duloxetine HCl (Duloxetine Hcl 20 Mg Capsule) 20 mg PO QDAY [facility] Stop: 11/29/24 10:29 Last Admin: 11/03/24 08:11 Dose: 20 mg Gabapentin (Gabapentin 300 Mg Capsule) 600 mg PO BID [facility] Stop: 11/29/24 10:29 Last Admin: 11/03/24 08:10 Dose: 600 mg Glucagon (Glucagon Inj 1 Mg Vial) 1 mg IM Q15MIN PRN PRN Reason: BG <70, and no IV access Hydromorphone HCl (Hydromorphone Inj 2 Mg/Ml Vial) 0.5 mg IVP Q4HR PRN PRN Reason: Pain 7-10 Stop: 11/04/24 10:46 Last Admin: 11/03/24 13:19 Dose: 0.5 mg Ceftriaxone Sodium 2 gm/ (Sodium Chloride) 50 mls @ 100 mls/hr IV QDAY [facility] Stop: 11/06/24 10:59 Last Admin: 11/03/24 08:11 Dose: 100 mls/hr Insulin Glargine (Insulin Glargine (Lantus) 5 Unit/0.05 Ml (Per 5 Units)) 5 unit SC QDAY [facility] Stop: 12/02/24 09:59 Last Admin: 11/03/24 08:24 Dose: 5 unit Insulin Human Lispro (Insulin Lispro (Admelog) 1 Unit/0.01 Ml Unit) 0 unit SC [facility]; Protocol Stop: 11/28/24 16:59 Last Admin: 11/03/24 12:17 Dose: 1 unit Levothyroxine Sodium (Levothyroxine Sodium 88 Mcg Tablet) 88 mcg PO ACBR [facility] Stop: 11/30/24 05:59 Last Admin: 11/03/24 05:22 Dose: 88 mcg Pantoprazole Sodium (Pantoprazole 40 Mg Tablet) 40 mg PO QDAY [facility]; Protocol Stop: 12/04/24 08:59 Pharmacy Consult (Pharmacy To Consult Pneumovacc) 1 each XX PRN PRN PRN Reason: CONSULT Stop: 11/28/24 12:46 Pramipexole Dihydrochloride (Pramipexole 0.25 Mg Tablet) 0.25 mg PO TID [facility] Stop: 12/02/24 13:59 Last Admin: 11/03/24 13:18 Dose: 0.25 mg Quetiapine Fumarate (Quetiapine Fumarate 25 Mg Tablet) 25 mg PO HS [facility] Stop: 11/29/24 20:59 Last Admin: 11/02/24 22:25 Dose: 25 mg Sodium Hypochlorite (Sod Hypochlorite 1/4 Str 473 Ml Btl) 473 ml IRRIG BID [place] Stop: 12/02/24 20:59 Last Admin: 11/03/24 08:25 Dose: 1 applicatio Discontinued Medications Acetaminophen (Acetaminophen 325 Mg Tablet) 650 mg PO Q6HR PRN PRN Reason: Pain 1-4 Stop: 11/28/24 11:51 Hydrocodone Bitart/Acetaminophen (Hydrocodone/Apap 10/325 Tab) 1 tab PO Q4HR PRN PRN Reason: PAIN SCALE 7-10 (Severe Stop: 11/03/24 10:01 Last Admin: 10/29/24 11:50 Dose: 1 tab Alprazolam (Alprazolam 0.25 Mg Tablet) 0.5 mg PO X1 ONE Stop: 10/31/24 11:34 Last Admin: 10/31/24 13:12 Dose: 0.5 mg Aspirin (Aspirin Ec 81 Mg Tabec) 81 mg PO X1 ONE Stop: 10/29/24 09:41 Last Admin: 10/29/24 11:58 Dose: 81 mg Heparin Sodium (Beef Lung) (Heparin Sod Lock Syr 100 Unit/Ml) 500 unit [facility] X1 ONE Stop: 11/01/24 14:00 Last Admin: 11/01/24 14:01 Dose: 500 unit Hydralazine HCl (Hydralazine Inj 20 Mg/Ml Vial) 10 mg IV X1 ONE Stop: 10/29/24 05:14 Last Admin: 10/29/24 05:18 Dose: 10 mg Hydralazine HCl (Hydralazine Hcl 25 Mg Tablet) 25 mg PO Q8H PRN PRN Reason: SBP > 170 Stop: 11/28/24 10:01 Hydralazine HCl (Hydralazine Hcl 25 Mg Tablet) 25 mg PO Q8H PRN PRN Reason: SBP >165, hold if HR >99 Stop: 11/28/24 10:01 Last Admin: 10/31/24 17:18 Dose: 25 mg Hydromorphone HCl (Hydromorphone Inj 2 Mg/Ml Vial) 1 mg IVP X1 ONE Stop: 11/02/24 15:35 Last Admin: 11/02/24 15:44 Dose: 1 mg Piperacillin/Tazobactam/Dextrose (Zosyn) 3.375 gm in 50 mls @ 100 mls/hr IV X1 ONE Stop: 10/29/24 06:33 Last Infusion: 10/29/24 06:50 Dose: Infused Piperacillin/Tazobactam/Dextrose (Zosyn) 3.375 gm in 50 mls @ 12.5 mls/hr IV Q8HR [place] Stop: 11/05/24 13:59 Last Admin: 10/30/24 05:00 Dose: 12.5 mls/hr Vancomycin/Sodium Chloride (Vancomycin/Ns 1 Gm Ivpb) 200 mls @ 120 mls/hr IV X1 ONE Stop: 10/29/24 11:54 Last Admin: 10/29/24 11:58 Dose: 120 mls/hr Vancomycin/Sodium Chloride (Vancomycin/Ns 750 Mg Ivpb) 750 mg in 150 mls @ 120 mls/hr IV Q12H [facility]; Protocol Stop: 11/06/24 09:59 Last Admin: 10/30/24 10:44 Dose: 120 mls/hr Ibuprofen (Ibuprofen Tab 600 Mg Tablet) 600 mg PO Q6H PRN PRN Reason: PAIN SCALE 1-3 (mild Stop: 11/28/24 10:01 Labetalol HCl (Labetalol Inj 5 Mg/Ml Vial 20 Ml) 10 mg IVP X1 ONE Stop: 10/29/24 11:58 Lidocaine HCl (Lidocaine Inj Pf 1% 30 Ml Vial) 2 ml INFL X1 ONE Stop: 11/01/24 14:00 Last Admin: 11/01/24 14:01 Dose: 2 ml Melatonin (Melatonin 3 Mg Tablet) 3 mg PO HS ONE Stop: 10/29/24 20:08 Last Admin: 10/29/24 20:51 Dose: 3 mg Morphine Sulfate (Morphine Sulf Inj 10 Mg/Ml Vial) 2 mg IVP Q4HR PRN PRN Reason: Pain 7-10 Stop: 11/03/24 11:55 Last Admin: 10/30/24 10:44 Dose: 2 mg Oxycodone/Acetaminophen (Oxycodone/Apap 5/325 Tablet) 1 tab PO Q6H PRN PRN Reason: PAIN SCALE 4-6 (Moderate Stop: 11/03/24 10:01 Last Admin: 10/29/24 22:39 Dose: 1 tab Pantoprazole Sodium (Pantoprazole Inj 40 Mg Vial) 40 mg IVP QDAY [place] Stop: 11/29/24 08:59 Last Admin: 11/03/24 08:12 Dose: 40 mg Pharmacy Consult (Vancomycin Pharmacy To Dose 1 Each Each) 1 each IV QDAY PRN PRN Reason: CONSULT Stop: 11/29/24 08:59 Sodium Hypochlorite (Sod Hypochlorite 1/2 Str 473 Ml Btl) 473 ml IRRIG X1 ONE Stop: 10/30/24 20:24 Last Admin: 10/30/24 21:08 Dose: 1 applicatio Assessment & Plan Plan 69-year-old female with past medical history of Parkinson disease (30 years), essential hypertension, PAD with arterial stenosis and arterial calcification, DM2, chronic left osteomyelitis, GERD, and hyperlipidemia was admitted to the hospital on 10/29/2024 due to left foot osteomyelitis as well as hypertensive emergency. 1. Preoperative Cardiac Clearance 2. Left foot osteomyelitis 3. Hx of peripheral artery disease -Patient will need cardiac clearance for L BKA due to osteomyelitis - Revised cardiac risk index score of 0 points indicating risk of major cardiac 3.9% ?Lundberg perioperative risk indicating 1.9% risk Plan: ?Will follow-up on echo ordered -Continue Atorvastatin 4. Hypertensive emergency -Patient had an initial BP of 199/65 -Currently 133/61 -EKG did not show any ischemic changes Plan: -Recommend tight blood pressure control -Continue Coreg and consider JENNIFER or ARB for better BP control -Could be related to pain 5. Parkinson disease -Continue current management as per primary care team 6. DM2 7. Hyperlipidemia ?Continue current management per primary care team Continue rest of management as per primary team. We are grateful to be able to participate in Mrs. Lao's care. Thank you for the consult Plan of care discussed with attending Director Of Donor Relations, Dr. Augustus Foster MD PGY-1 Attending Provider Attestation/Addendum I have personally seen and examined the patient separately on the above date of service and discussed the plan of care with the resident. I reviewed the resident Dr. Zhang consultation progress note and agree with the resident findings and plan in the note above and have also edited the documentation to reflect my findings and plan. A 69-year-old female with a extensive past medical history of Parkinson disease per last 25 to 30 years, essential hypertension, diabetes mellitus type 2, chronic left foot osteomyelitis, nonhealing wounds, history of severe bilateral lower extremity PAD noted on CT abdominal pelvis along with moderate calcification of the LAD as well as the circumflex artery, hypothyroidism, right leg vascular surgery, breast cancer with a lumpectomy in 2017, history of GI bleeding also in last year, chronic anemia was initially admitted to the hospital on 10/29/2024 due to left foot osteomyelitis as well as hypertensive emergency. Patient was seen by multiple specialists including orthopedics, infectious disease, general surgery, orthopedics, vascular surgery and during this admission and also in the last few months and eventually it was decided that the patient does have chronic osteomyelitis and has poor blood flow based on the CTA runoff as shown below and was recommended left foot amputation. Cardiology now consulted for further recommendations regarding preoperative cardiac risk assessment. CTA abdomen pelvis with lower extremity runoff showed severe bilateral lower extremity PAD with moderate calcification of the LAD as well as the circumflex arteries noted on previous CT also, extensive calcification of the abdominal aorta and very heavy calcification of the origin of the renal arteries as well as the common iliac external iliac and common femoral arteries severe 90% stenosis of the right foot Malcolm femoral artery, distal right superficial femoral artery occlusion of the distal SFA and poor three-vessel runoff bilateral lower extremities along with critical stenosis left SFA left popliteal artery. Recommendations: Patient at baseline has functional status is less than 4 METS. Patient is going left BKA vascular surgery with general anesthesia which will be an intermediate risk surgery. Patient has significantly multiple comorbidities including severe PAD and is at high risk of CAD given at least moderate calcification seen in both LAD as well as LCx and will need further cardiac workup for appropriate cardiac risk stratification. Check TSH A1c as well as lipid profile. EKG showed normal sinus rhythm with right bundle branch block and nonspecific ST-T changes. Echocardiogram ordered to evaluate the LV function RV function, diastolic function is elevated and regional wall motion abnormalities. Management of rest of the medical conditions as per primary team and other consultants. Thank you for the consult and allowing me to participate in the care of the patient. Cardiology will continue to follow. Alvaro Coffman M.D. Interventional Cardiology
--- NOTE | 2024-11-03 16:39 | ESPR_ITS ---
Documentation for date of: 11/03/24 Subjective Subjective Interval history: ------- Patient is Hungarian speaking, translation service was used ------- Patient was seen and examined at bedside this AM. No acute events overnight. She is tolerating diet, adequate urine output and mentation is at baseline. Patient endorses improvement of pain after heel debridement by Dr Mcghee yesterday. Neurology evaluated patient for complaints of worsening Parkinson symptoms and started Pramipexole. Vascular surgeon Dr Rudd reviewed CTA femoral angio and as per recommendations, patient would need a BKA Dr Mcghee was informed and is able to perform the BKA on November 17, 2024. But requested cardiac clearance in hospital prior to discharge. Cardiology is consulted for cardiac clearance as requested. ECHO ordered for evaluation. Patient was counseled on the need for BKA, she was very emotional and needed time to process this. Patient and family to discuss and let us know. Exam Vital Signs Temp Pulse Resp BP Pulse Ox O2 Del Method 97.5 F 84 19 133/61 H 98 Room Air 11/03/24 11:51 11/03/24 15:24 11/03/24 11:51 11/03/24 11:51 11/03/24 11:51 11/03/24 11:51 Narrative Exam Constitutional Alert, oriented x4 and comfortable HEENT Vision grossly intact. Patent nares. Trachea midline. Respiratory Chest normal on inspection and clear to auscultation bilaterally. Cardiovascular S1 and S2 audible, RRR. No murmurs or carotid bruit. No gross JVD. Abdominal Soft and non tender to palpation in all quadrants. BS + Genitourinary No bladder tenderness, no flank pain. Normal to palpation. Musculoskeletal Extremities tone within normal limits. LT heel s/p debridement, clean bandage, no discharge Neurological CN II - XII grossly intact. Extremity motor and sensation grossly intact. Skin Warm, dry and intact. No apparent lesions. Psychiatric Patient has a good affect, is cooperative. Objective Labs 11/04/24 04:24 11/04/24 04:24 Labs: Laboratory Results - last 24 hr 11/03/24 05:23 WBC 12.8 H RBC 3.38 L Hgb 8.9 L Hct 28.2 L MCV 83 MCH 26.3 MCHC 31.6 RDW Std Deviation 53.5 H Plt Count 496 H Neut % (Auto) 69 Lymph % (Auto) 21 Dickenson % (Auto) 7 Eos % (Auto) 2 Baso % (Auto) 1 Neut # (Auto) 8.8 H Lymph # (Auto) 2.6 Dickenson # (Auto) 0.9 H Eos # (Auto) 0.3 Baso # (Auto) 0.1 Immature Gran # (Auto) 0.13 H Absolute Nucleated RBC 0.00 Immature Gran % 1 H Nucleated RBC % 0 Sodium 133 L Potassium 3.6 Chloride 100 Carbon Dioxide 26.1 Anion Gap 7 BUN 11 Creatinine 0.7 Estim Creat Clear Calc 59.1 L eGFR > 60 BUN/Creatinine Ratio 16 Glucose 152 H Calculated Osmolality 268 L Calcium 8.7 Corrected Calcium 9.3 Phosphorus 2.9 Magnesium 1.8 Total Bilirubin < 0.2 L AST < 8 ALT < 7 L Alkaline Phosphatase 95 Total Protein 5.9 Albumin 3.2 L Globulin 2.7 Albumin/Globulin Ratio 1.2 Quality Measures Quality Measures VTE prophylaxis (SCDs) Advance care planning discussed with:: patient and spouse Assessment & Plan Assessment Current Active Medications: Generic Name Dose Route Start Last Admin Trade Name Freq PRN Reason Stop Dose Admin Acetaminophen 650 mg 10/29/24 10:02 11/01/24 14:31 Acetaminophen 325 Mg Tablet PO 11/28/24 10:01 650 mg Q6H PRN Administration Fever >100.4 Acetaminophen 650 mg 10/29/24 11:59 Acetaminophen 325 Mg Tablet PO 11/28/24 11:51 Q6HR PRN Pain 1-3 Hydrocodone Bitart/Acetaminophen 1 tab 10/30/24 10:48 11/01/24 23:25 Hydrocodone/Apap 5/325 Tablet PO 11/04/24 10:47 1 tab Q6HR PRN Administration PAIN SCALE 4-6 (Moderate Atorvastatin Calcium 10 mg 10/30/24 21:00 11/02/24 22:26 Atorvastatin Calcium 10 Mg Tablet PO 11/29/24 20:59 10 mg HS [place] Administration Balsam [place] Oil 0 gm 10/31/24 21:00 11/03/24 08:25 Balsam [place] Oil (Venelex) 60 Gm Tube TOP 11/30/24 20:59 1 applicatio BID [place] Administration Carbidopa/Levodopa 1 tab 10/30/24 14:00 11/03/24 13:19 Carbidopa/Levodopa 25/100 Mg Tablet PO 11/29/24 13:59 1 tab TID [place] Administration Carvedilol 3.125 mg 10/29/24 17:30 11/03/24 08:10 Carvedilol 3.125 Mg Tablet PO 11/28/24 17:29 3.125 mg BIDWM [place] Administration Dextrose 25 ml 10/29/24 12:31 Dextrose 50%-Water Inj 50 Ml Syringe IV 11/28/24 12:30 Q15MIN PRN BG 50-70 responsive npo pt Dextrose 50 ml 10/29/24 12:31 Dextrose 50%-Water Inj 50 Ml Syringe IV 11/28/24 12:30 Q15MIN PRN BG <50 OR BG <70 & pt unresponsive Doxycycline Hyclate 100 mg 10/30/24 11:00 11/03/24 08:10 Doxycycline 100 Mg Tablet PO 11/06/24 10:59 100 mg BID [place] Administration Duloxetine HCl 20 mg 10/30/24 10:30 11/03/24 08:11 Duloxetine Hcl 20 Mg Capsule PO 11/29/24 10:29 20 mg QDAY [place] Administration Gabapentin 600 mg 10/30/24 10:30 11/03/24 08:10 Gabapentin 300 Mg Capsule PO 11/29/24 10:29 600 mg BID [place] Administration Glucagon 1 mg 10/29/24 12:31 Glucagon Inj 1 Mg Vial IM Q15MIN PRN BG <70, and no IV access Hydromorphone HCl 0.5 mg 10/30/24 10:47 11/03/24 13:19 Hydromorphone Inj 2 Mg/Ml Vial IVP 11/04/24 10:46 0.5 mg Q4HR PRN Administration Pain 7-10 Ceftriaxone Sodium 2 gm/ 50 mls @ 100 mls/hr 10/30/24 11:00 11/03/24 08:11 Sodium Chloride IV 11/06/24 10:59 100 mls/hr QDAY [place] Administration Insulin Glargine 5 unit 11/02/24 10:00 11/03/24 08:24 Insulin Glargine (Lantus) 5 Unit/0.05 Ml (Per 5 Units) SC 12/02/24 09:59 5 unit QDAY [place] Administration Insulin Human Lispro 0 unit 10/29/24 17:00 11/03/24 12:17 Insulin Lispro (Admelog) 1 Unit/0.01 Ml Unit SC 11/28/24 16:59 1 unit ACHS [place] Administration Protocol Levothyroxine Sodium 88 mcg 10/31/24 06:00 11/03/24 05:22 Levothyroxine Sodium 88 Mcg Tablet PO 11/30/24 05:59 88 mcg ACBR [place] Administration Pantoprazole Sodium 40 mg 11/04/24 09:00 Pantoprazole 40 Mg Tablet PO 12/04/24 08:59 QDAY [place] Protocol Pharmacy Consult 1 each 10/29/24 12:47 Pharmacy To Consult Pneumovacc XX 11/28/24 12:46 PRN PRN CONSULT Pramipexole Dihydrochloride 0.25 mg 11/02/24 14:00 11/03/24 13:18 Pramipexole 0.25 Mg Tablet PO 12/02/24 13:59 0.25 mg TID [place] Administration Quetiapine Fumarate 25 mg 10/30/24 21:00 11/02/24 22:25 Quetiapine Fumarate 25 Mg Tablet PO 11/29/24 20:59 25 mg HS [place] Administration Sodium Hypochlorite 473 ml 11/02/24 21:00 11/03/24 08:25 Sod Hypochlorite 1/4 Str 473 Ml Btl IRRIG 12/02/24 20:59 1 applicatio BID [place] Administration Plan Ms Lao is a 69-year-old female with PMHx of HTN, T2DM, left foot osteomyelitis and GERD presented to ED with worsening epigastric pain and intractable left foot pain. Admitted to med/tele for surgical evaluation and blood pressure control. Continue on ANTIBIOTICS. Pending I&D with general surgery today. On IV Rocephin 2 g/day and p.o. doxycycline 100 mg twice daily for 6 weeks until December 10, 2024. Will need weekly CBC/CMP/ESR to evaluate improvement 1. Left foot osteomyelitis 2. Peripheral artery disease 3. s/p LT heel debridement 4. Peripheral neuropathy - History of peripheral artery disease, s/p cardiovascular patient on right foot, patient pending cardiovascular evaluation of the left foot in November. Cu - Foot CT: Soft tissue infection plantar aspect of calcaneus, suspected early osteomyelitis of plantar surface of calcaneus. - Completed 1 day of ZOSYN and VANCOMYCIN - Wound culture : E. coli, however blood culture usually unreliable, will continue with ID recommendations as below. - MRI : early osteomyelitis posterior plantar surface of calcaneus. - Vascular surgery, Dr. Tobin medina consult - Abdo-Femoral CTA: 90% stenosis distal right superficial femoral artery. There is severe calcification of the superficial femoral arteries popliteal arteries and especially the trifurcation arteries below the knees. - 11/03 : S/p debridement with general surgery today 11/02. Plan: ? Consult general surgery and orthopedics, following closely - Orthopedics, Dr. HOWARD recommended ID consult, started DAKIN'S solution - ID recommended 6 weeks CEFTRIAXONE 2 g daily and DOXY 100 mg BID - PICC line was placed for CEFTRIAXONE 2 g daily + DOXYCYCLINE 100 mg BID (08/30 - ) x 6 weeks as per ID recommendations - PRN [place] 5/325 q.6h. + IV Dilaudid 0.5mg q.6h PRN + home GABAPENTIN 600 mg BID - Concern for inability to heal given the severe PAD, consulted vascular surgery Dr. Rudd. Per recommendations, patient will need below knee amputation. - Dr Mcghee was informed and is able to perform the BKA on November 17, 2024. But requested cardiac clearance in hospital prior to discharge. - Cardiology is consulted for cardiac clearance as requested. ECHO ordered for evaluation. 5. T2 NIDDM - History of diabetes, HbA1c 6.5 this visit. - Has outpatient wound care for left foot ulcer, presenting with severe intractable pain 08/24 - BG : 150 - 220 Plan: - Added 5 units of insulin Lantus in the a.m. Monitor fingersticks. - Started normal insulin sliding scale with Accu-Checks - Hypoglycemia protocol in place - Day team to start insulin glargine - Will prescribe continuous glucose monitor on discharge 6. Hypertensive urgency - resolved Hx of HTN, admission BP 190/65, patient has lactic acidosis, denies cardiogenic chest pain Likely poorly controlled hypertension, worsened due to pain EKG sinus rhythm, no acute ST changes, troponin negative BP 175/69 --> 100/60s Plan: ? Started home CARVEDILOL 3.125 mg BID ? Started HYDRALAZINE 25 mg q.8h. for SBP greater than 170 ? Controlling pain as below ? Med/tele 7. Epigastric pain, unspecified ? improving 8. GERD Initially complained of chest pain however on examination, patient endorsing epigastric pain, worse in left upper quadrant. Pain reproducible on exam, overall improving. Abdominal ultrasound consistent with her symptoms, showed biliary sludge, and hepatocellular disease. History of GERD, on home OMEPRAZOLE. Plan: ? Started PROTONIX 40 mg daily for GI prophylaxis - tolerating diet comfortably. GI discomfort likely due to antibiotics 9. Hypothyroidism ? Resumed home LEVOTHYROXINE 88 mg 10. Insomnia/depression ? Resumed home QUETIAPINE 25 mg HS ? Resumed home DULOXETINE 20 mg daily 11. Parkinson's disease Consulted neurology for worsening Parkinson symptoms, last meds adjusted 3 years ago. Plan: Neurology recommendations as below: ? Continue home CARBIDOPA LEVODOPA 25?100 TID ? Started PRAMIPEXOLE 0.25 p.o. TID, will discharge on this 12. Incidental Findings * Abdominal ultrasound suspected primary hepatocellular disease, bilateral renal cortical thinning, moderate bilateral renal parenchymal scar formation, gallbladder sludge. Patient asymptomatic. * Recommended outpatient follow-up with PCP Health maintenance Disposition: Discharge in 24 hours, pending cardiac clearance Diet: CHO consistent GI prophylaxis: PROTONIX DVT prophylaxis: SCD Antibiotics: Rocephin, Doxycycline CODE STATUS: DNR Plan of care discussed with attending Dr Singleton , Vinh Colbert MD, PGY 2 Attending Provider Attestation/Addendum I reviewed labs, imaging, EKG, home medications and prior available records. Face to face evaluation was performed by me. I have personally examined the patient and discussed assessment and plan with the IM team. I reviewed the resident note and agree with the plan with exceptions as below. Left foot osteomyelitis Hypertensive urgency Uncontrolled hypertension Parkinson's disease Peripheral vascular disease Uncontrolled diabetes mellitus with hyperglycemia, type II Follow-up MRI of the left lower extremity: Did show early osteomyelitis. Changed vancomycin and Zosyn to Rocephin and doxycycline. Consulted IR for PICC line placement. She will need 6 weeks of treatment. 2 g daily till 12/11/2024. Home health ordered. general lithographic worker is working on the case. Started hydralazine. Management of pain. Monitor BP. Consulted neurology for worsening Parkinson symptoms: Recommended adding pramipexole Concern for inability to heal given the severe PAD. Consulted vascular surgery Dr. Rudd. Recommended below the knee amputation. Discussed with Dr. Mcghee: Plan for amputation on 11/17. Consulted cardiology for preop clearance and ordered echocardiogram. Discussed with cardiology: She may need a stress test prior to OR. Patient is still thinking about the surgery itself and did not give consent yet. Added 5 units of insulin Lantus in the a.m. Monitor fingersticks.
[2024-11-03] MEDS: HYDROcodone/APAP 5/325 TABLET 1 TAB PO (18:07)
[2024-11-03] MEDS: QUEtiapine FUMARATE 25 MG TABLET PO (21:06)
[2024-11-03] MEDS: ATORVASTATIN CALCIUM 10 MG TABLET PO (21:06)
[2024-11-04] VITALS: BP 103/72; PULSE 84; RESP 18; TEMP 36.2; O2SAT 92
[2024-11-04 04:00] VITALS: BP 134/52; PULSE 80; RESP 17; TEMP 36.4; O2SAT 96
[2024-11-04] MEDS: PRAMIPEXOLE 0.25 MG TABLET PO ×2 (05:06→13:40)
[2024-11-04] MEDS: CARBIDOPA/LEVODOPA 25/100 MG TABLET 1 TAB PO ×2 (05:07→13:40)
[2024-11-04] MEDS: LEVOTHYROXINE SODIUM 88 MCG TABLET PO (05:07)
[2024-11-04] MEDS: HYDROcodone/APAP 5/325 TABLET 1 TAB PO ×2 (05:07→12:02)
[2024-11-04 05:23] LABS: Basophils # (Auto) 0.1 Thou/mm3 (0.0-0.2); Basophils % (Auto) 1 % (0-2.5); Eosinophils # (Auto) 0.4 Thou/mm3 (0.0-0.5); Eosinophils % (Auto) 4 % (0-10); Hematocrit 27.5 % (36.0-46.0); Immature Granulocytes % (Auto) 1 % (0-0); Immature Granulocytes Auto 0.11 Thou/mm3 (0.00-0.00); Lymphocytes # (Auto) 2.1 Thou/mm3 (1.0-4.8); Lymphocytes % (Auto) 21 % (10-50); Mean Corpuscular HGB Conc 31.6 g/dl (31.0-37.0); Mean Corpuscular Hemoglobin 26.4 pg (25.0-35.0); Mean Corpuscular Volume 84 fL (80-100); Monocytes # (Auto) 0.9 Thou/mm3 (0.0-0.8); Monocytes % (Auto) 8 % (0-12); Neutrophils # (Auto) 6.6 Thou/mm3 (1.8-7.7); Neutrophils % (Auto) 66 % (37-80); Nucleated Red Blood Cell % 0 /100 WBC (0); Platelet Count 469 Thou/mm3 (140-440); RDW Standard Deviation 53.1 fL (36.4-46.3); Red Blood Count 3.29 Miln/mm3 (4.00-5.20); White Blood Count 10.1 Thou/mm3 (3.6-11.0)
[2024-11-04 05:45] LABS: Hemoglobin 8.7 g/dL (12.0-16.0)
[2024-11-04 06:15] LABS: Alanine Aminotransferase < 7 U/L (10-49); Albumin, Serum 3.1 gm/dL (3.4-4.8); Albumin/Globulin Ratio 1.2 (1.2-2.2); Alkaline Phosphatase 96 U/L (46-116); Anion Gap 7 (7-16); Aspartate Amino Transferase < 8 U/L (0-34); BUN/Creatinine Ratio 18 Ratio (12-20); Bilirubin,Total < 0.2 mg/dL (0.3-1.2); Blood Urea Nitrogen 11 mg/dL (9-23); Calcium 8.6 mg/dL (8.3-10.6); Calcium (Corrected) 9.3 mg/dL (8.5-10.1); Carbon Dioxide 26.3 mMol/L (20.0-31.0); Chloride 103 mMol/L (98-107); Creatinine (Component) 0.6 mg/dL (0.6-1.3); Globulin 2.6 gm/dL (2.3-3.5); Glucose 154 mg/dL (74-106); Magnesium 1.8 mg/dL (1.6-2.6); Osmolality,Calculated 274 (275-295); Phosphorous 2.9 mg/dL (2.4-5.1); Potassium 3.2 mMol/L (3.4-5.1); Sodium 136 mMol/L (136-145); Total Protein 5.7 gm/dL (5.7-8.2); eGFR > 60 See Note
[2024-11-04 07:47] VITALS: PULSE 89
[2024-11-04 08:00] VITALS: BP 126/51; PULSE 87; RESP 18; TEMP 36.7; O2SAT 96
[2024-11-04 08:32] VITALS: BP 126/51; PULSE 87
[2024-11-04] MEDS: carVEDILOL 3.125 MG TABLET PO (08:32)
[2024-11-04] MEDS: GABAPENTIN 300 MG CAPSULE 600 MG PO (08:32)
[2024-11-04] MEDS: DOXYCYCLINE 100 MG TABLET PO ×2 (08:32→15:34)
[2024-11-04] MEDS: PANTOPRAZOLE 40 MG TABLET PO (08:32)
[2024-11-04] MEDS: DULoxetine HCL 20 MG CAPSULE PO (08:33)
[2024-11-04] MEDS: HYDROmorphone INJ 2 MG/ML VIAL 0.5 MG IVP ×2 (08:33→14:16)
[2024-11-04] MEDS: cefTRIAXone 2 GM in SODIUM CHLORIDE 0.9% (P) 50 ML IV (08:33)
[2024-11-04] MEDS: BALSAM PERU/CASTOR OIL (Venelex) 60 GM TUBE TOP (08:33)
[2024-11-04] MEDS: INSULIN LISPRO (AdmeLOG) 1 UNIT/0.01 ML UNIT SC (08:34)
[2024-11-04] MEDS: INSULIN GLARGINE (Lantus) 5 UNIT/0.05 ML (PER 5 UNITS) SC (08:37)
--- NOTE | 2024-11-04 08:50 | PC.NURSE ---
made aware of K 3.2 this AM. ordered 40 meq KCL x1 to be given now.
[2024-11-04] MEDS: POTASSIUM CHLORIDE 20 mEq TABCR 40 MEQ PO (10:18)
[2024-11-04] MEDS: SOD HYPOCHLORITE 1/4 STR 473 ML BTL IRRIG (10:18)
[2024-11-04] MEDS: POLYETHYLENE GLYCOL 17 GM PACKET PO (10:18)
--- NOTE | 2024-11-04 11:01 | PD.RESPRO ---
Documentation for date of: 11/04/24 Subjective Subjective Interval history: Patient was seen this morning at bedside. No overnight events. Patient states she does not have any chest pain or any cardiac symptoms at this time. Patient has asked us to go home. Potassium 3.2, magnesium 1.8, recommend to keep above 4 and 2 respectively to avoid any arrhythmias. Will need further outpatient cardiac work up. Echo on 11/03/2024 had the following findings: Normal LV size and function.Stage I diastolic dysfunction. Estimated EF 55-60% Normal RV size and function. Trace MR, TR. Mild AV sclerosis without stenosis. Exam Vital Signs Temp Pulse Resp BP Pulse Ox O2 Del Method 98.0 F 87 18 126/51 L 96 Room Air 11/04/24 08:00 11/04/24 08:32 11/04/24 08:00 11/04/24 08:32 11/04/24 08:00 11/04/24 08:00 Narrative Exam General: A/O x3, no acute distress, thin Eyes: PERRL, EOMI. Anicteric, vision grossly intact. Ears: No ear pain, no ear discharge, Hearing grossly intact. Nose: No nasal discharge. Mouth/Throat: Dry mucous membranes, no redness, no lesions. Neck: Neck supple, non-tender, no cervical lymphadenopathy. Lungs: Clear KELLIE to auscultation and percussion, No accessory muscle use. Cardio: Normal S1/S2, regular rhythm, no murmurs, no JVD Abdomen: Soft, non-tender, no palpable masses, peristalsis present, no guarding or rebound. Extremities: Symmetrical, no significant deformities, no peripheral edema , non-tender, peripheral pulses presents, R foot with 2/3 toe amputation. L foot covered with clean dressing Skin: No rashes, no lesions, warm to touch. Neuro: Patient had constant unintentional movement, otherwise no focal neurological deficits appreciated. Psych: Cooperative, appropriate mood and effect. Objective Labs 11/04/24 04:24 11/04/24 04:24 Labs: Laboratory Results - last 24 hr 11/04/24 04:24 WBC 10.1 RBC 3.29 L Hgb 8.7 L Hct 27.5 L MCV 84 MCH 26.4 MCHC 31.6 RDW Std Deviation 53.1 H Plt Count 469 H Neut % (Auto) 66 Lymph % (Auto) 21 [place] % (Auto) 8 Eos % (Auto) 4 Baso % (Auto) 1 Neut # (Auto) 6.6 Lymph # (Auto) 2.1 Cassia # (Auto) 0.9 H Eos # (Auto) 0.4 Baso # (Auto) 0.1 Immature Gran # (Auto) 0.11 H Absolute Nucleated RBC 0.00 Immature Gran % 1 H Nucleated RBC % 0 Sodium 136 Potassium 3.2 L Chloride 103 Carbon Dioxide 26.3 Anion Gap 7 BUN 11 Creatinine 0.6 Estim Creat Clear Calc 69.0 eGFR > 60 BUN/Creatinine Ratio 18 Glucose 154 H Calculated Osmolality 274 L Calcium 8.6 Corrected Calcium 9.3 Phosphorus 2.9 Magnesium 1.8 Total Bilirubin < 0.2 L AST < 8 ALT < 7 L Alkaline Phosphatase 96 Total Protein 5.7 Albumin 3.1 L Globulin 2.6 Albumin/Globulin Ratio 1.2 Quality Measures Quality Measures VTE prophylaxis (SCDs) Advance care planning discussed with:: patient Assessment & Plan Assessment Current Active Medications: Generic Name Dose Route Start Last Admin Trade Name Freq PRN Reason Stop Dose Admin Acetaminophen 650 mg 10/29/24 10:02 11/01/24 14:31 Acetaminophen 325 Mg Tablet PO 11/28/24 10:01 650 mg Q6H PRN Administration Fever >100.4 Acetaminophen 650 mg 10/29/24 11:59 Acetaminophen 325 Mg Tablet PO 11/28/24 11:51 Q6HR PRN Pain 1-3 Atorvastatin Calcium 10 mg 10/30/24 21:00 11/03/24 21:06 Atorvastatin Calcium 10 Mg Tablet PO 11/29/24 20:59 10 mg HS [place] Administration Balsam [place] Oil 0 gm 10/31/24 21:00 11/04/24 08:33 Balsam [place] Oil (Venelex) 60 Gm Tube TOP 11/30/24 20:59 1 applicatio BID [place] Administration Carbidopa/Levodopa 1 tab 10/30/24 14:00 11/04/24 05:07 Carbidopa/Levodopa 25/100 Mg Tablet PO 11/29/24 13:59 1 tab TID [place] Administration Carvedilol 3.125 mg 10/29/24 17:30 11/04/24 08:32 Carvedilol 3.125 Mg Tablet PO 11/28/24 17:29 3.125 mg BIDWM [place] Administration Dextrose 25 ml 10/29/24 12:31 Dextrose 50%-Water Inj 50 Ml Syringe IV 11/28/24 12:30 Q15MIN PRN BG 50-70 responsive npo pt Dextrose 50 ml 10/29/24 12:31 Dextrose 50%-Water Inj 50 Ml Syringe IV 11/28/24 12:30 Q15MIN PRN BG <50 OR BG <70 & pt unresponsive Doxycycline Hyclate 100 mg 10/30/24 11:00 11/04/24 08:32 Doxycycline 100 Mg Tablet PO 11/06/24 10:59 100 mg BID [place] Administration Duloxetine HCl 20 mg 10/30/24 10:30 11/04/24 08:33 Duloxetine Hcl 20 Mg Capsule PO 11/29/24 10:29 20 mg QDAY [place] Administration Gabapentin 600 mg 10/30/24 10:30 11/04/24 08:32 Gabapentin 300 Mg Capsule PO 11/29/24 10:29 600 mg BID [place] Administration Glucagon 1 mg 10/29/24 12:31 Glucagon Inj 1 Mg Vial IM Q15MIN PRN BG <70, and no IV access Ceftriaxone Sodium 2 gm/ 50 mls @ 100 mls/hr 10/30/24 11:00 11/04/24 08:33 Sodium Chloride IV 11/06/24 10:59 100 mls/hr QDAY [place] Administration Insulin Glargine 5 unit 11/02/24 10:00 11/04/24 08:37 Insulin Glargine (Lantus) 5 Unit/0.05 Ml (Per 5 Units) SC 12/02/24 09:59 5 unit QDAY [place] Administration Insulin Human Lispro 0 unit 10/29/24 17:00 11/04/24 08:34 Insulin Lispro (Admelog) 1 Unit/0.01 Ml Unit SC 11/28/24 16:59 1 unit ACHS [place] Administration Protocol Levothyroxine Sodium 88 mcg 10/31/24 06:00 11/04/24 05:07 Levothyroxine Sodium 88 Mcg Tablet PO 11/30/24 05:59 88 mcg ACBR [place] Administration Pantoprazole Sodium 40 mg 11/04/24 09:00 11/04/24 08:32 Pantoprazole 40 Mg Tablet PO 12/04/24 08:59 40 mg QDAY [place] Administration Protocol Pharmacy Consult 1 each 10/29/24 12:47 Pharmacy To Consult Pneumovacc XX 11/28/24 12:46 PRN PRN CONSULT Pramipexole Dihydrochloride 0.25 mg 11/02/24 14:00 11/04/24 05:06 Pramipexole 0.25 Mg Tablet PO 12/02/24 13:59 0.25 mg TID [place] Administration Quetiapine Fumarate 25 mg 10/30/24 21:00 11/03/24 21:06 Quetiapine Fumarate 25 Mg Tablet PO 11/29/24 20:59 25 mg HS [place] Administration Sodium Hypochlorite 473 ml 11/02/24 21:00 11/04/24 10:18 Sod Hypochlorite 1/4 Str 473 Ml Btl IRRIG 12/02/24 20:59 1 applicatio BID [place] Administration Plan 69-year-old female with past medical history of Parkinson disease (30 years), essential hypertension, PAD with arterial stenosis and arterial calcification, DM2, chronic left osteomyelitis, GERD, and hyperlipidemia was admitted to the hospital on 10/29/2024 due to left foot osteomyelitis as well as hypertensive emergency. 1. Preoperative Cardiac Clearance 2. Left foot osteomyelitis 3. Hx of peripheral artery disease -Patient will need cardiac clearance for L BKA due to osteomyelitis - Revised cardiac risk index score of 0 points indicating risk of major cardiac 3.9% ?[place] perioperative risk indicating 1.9% risk -Echo on 11/03/2024 had the following findings: Normal LV size and function.Stage I diastolic dysfunction. Estimated EF 55-60% Normal RV size and function. Trace MR, TR. Mild AV sclerosis without stenosis. Plan: -Continue Atorvastatin 4. Hypertensive emergency -Patient had an initial BP of 199/65 -Currently 133/61 -EKG did not show any ischemic changes Plan: -Recommend tight blood pressure control -Continue Coreg and consider JENNIFER or ARB for better BP control -Could be related to pain 5. Parkinson disease -Continue current management as per primary care team 6. DM2 7. Hyperlipidemia ?Continue current management per primary care team Continue rest of management as per primary team. We are grateful to be able to participate in Mrs. Lao's care. Thank you for the consult Plan of care discussed with attending Grease Packer, Dr. Augustus Foster MD PGY-1 Attending Provider Attestation/Addendum I have personally seen and examined the patient separately on the above date of service and discussed the plan of care with the resident. I reviewed the resident Dr. Zhang consultation progress note and agree with the resident findings and plan in the note above and have also edited the documentation to reflect my findings and plan. A 69-year-old female with a extensive past medical history of Parkinson disease per last 25 to 30 years, essential hypertension, diabetes mellitus type 2, chronic left foot osteomyelitis, nonhealing wounds, history of severe bilateral lower extremity PAD noted on CT abdominal pelvis along with moderate calcification of the LAD as well as the circumflex artery, hypothyroidism, right leg vascular surgery, breast cancer with a lumpectomy in 2017, history of GI bleeding also in last year, chronic anemia was initially admitted to the hospital on 10/29/2024 due to left foot osteomyelitis as well as hypertensive emergency. Patient was seen by multiple specialists including orthopedics, infectious disease, general surgery, orthopedics, vascular surgery and during this admission and also in the last few months and eventually it was decided that the patient does have chronic osteomyelitis and has poor blood flow based on the CTA runoff as shown below and was recommended left foot amputation. Cardiology now consulted for further recommendations regarding preoperative cardiac risk assessment. CTA abdomen pelvis with lower extremity runoff showed severe bilateral lower extremity PAD with moderate calcification of the LAD as well as the circumflex arteries noted on previous CT also, extensive calcification of the abdominal aorta and very heavy calcification of the origin of the renal arteries as well as the common iliac external iliac and common femoral arteries severe 90% stenosis of the right foot Malcolm femoral artery, distal right superficial femoral artery occlusion of the distal SFA and poor three-vessel runoff bilateral lower extremities along with critical stenosis left SFA left popliteal artery. Recommendations: Patient at baseline has functional status is less than 4 METS. Patient is going left BKA vascular surgery with general anesthesia which will be an intermediate risk surgery. Patient has significantly multiple comorbidities including severe PAD and is at high risk of CAD given at least moderate calcification seen in both LAD as well as LCx and will need further cardiac workup for appropriate cardiac risk stratification. Check TSH A1c as well as lipid profile. EKG showed normal sinus rhythm with right bundle branch block and nonspecific ST-T changes. Echocardiogram showed normal LV size and function.Stage I diastolic dysfunction. Estimated EF 55-60%. Normal RV size and function. Trace MR, TR. Mild AV sclerosis without stenosis. Echocardiogram as noted above shows normal LV size and function as well as normal RV size and function. EKG showed normal sinus rhythm with right bundle branch block and nonspecific ST-T changes.Based on CTA abdominal pelvis patient appears to have at least moderate calcification of the LAD as well as LCx indicating the presence of possible CAD and patient is at high risk for the CAD. Patient at baseline has significant dyskinesia from parkinsonism and will be unable to do even a pharmacological stress test as it will create a lot of artifact. Patient is not a candidate for treadmill stress test. We unfortunately do not have a cardiac CTA here for further stratification but also the calcium will give significant blooming artifact. Patient will need to have possible cardiac catheterization if the CAD needs to be evaluated and for this she cannot be done under moderate sedation and will need deep sedation with anesthesia consult with airway protection. Discussed this with the surgeon Dr. Yuly Callahan and explained everything above in detail. If patient cannot get any further cardiac workup then patient should be treated as high cardiac risk for the surgery and recommend to do the surgery with possible regional nerve block. Management of rest of the medical conditions as per primary team and other consultants. Thank you for the consult and allowing me to participate in the care of the patient. Cardiology will continue to follow. Alvaro Coffman M.D. Interventional Cardiology
--- NOTE | 2024-11-04 11:04 | PC.CM ---
I spoke to [facility] and they will be able to see patient tomorrow. [facility] delivered the abx yesterday. I spoke to Dr. Lawler and to manager social responsibility and made them aware. Patient should discharge today.
[2024-11-04 12:00] VITALS: BP 126/61; PULSE 84; PULSE 85; RESP 18; TEMP 36.7; O2SAT 93
--- NOTE | 2024-11-04 13:04 | ESDS_ITS ---
Planned Discharge Date 11/04/24 DS: Providers Provider Date of admission: 10/29/24 10:02 Primary care physician: Armen Taylor MD Admitting Provider: Dave Eastman DO Attending Provider on Admission: Marin Singleton MD Consults: 10/29/24 09:45 Consult to Orthopedic Stat Comment: Consulting Provider: David Erazo 10/29/24 09:47 Consult to General Surgery Stat Comment: Consulting Provider: Yuly Mcghee 10/29/24 12:47 Health Equity Referral - Nutrition Routine Comment: Positive screening for nutrition needs. Health Equity Referral - Transportation Routine Comment: Positive screening for transportation needs. 10/29/24 12:55 Referral Wound Care Stat Comment: 10/29/24 20:05 Consult to Infectious Diseases Routine Comment: Consulting Provider: Nahum Dhillon Instructions: Chronic osteomyelitis, diabetes 10/29/24 20:06 Consult to General Surgery Routine Comment: Consulting Provider: Yuly Mcghee Instructions: Chronic osteomyelitis left heel 10/30/24 10:45 Referral Physical Therapy Routine Comment: Physician Instructions: 10/31/24 11:48 Referral Registered Dietitian Routine Comment: new skin tear to right forearm Referral Wound Care Routine Comment: new skin tear to right forearm 11/01/24 22:51 Consult to General Surgery Urgent Comment: Consulting Provider: Germania Espitia Instructions: You amputated toes right foot. Dr. Callahan recommends waiting for vascular surgery consult. I am worried that it is a is a month away. Since you know this lady well could you take a look and see if you think this left foot is salvageable. She has full-thickness loss of skin and subcutaneous tissue. She has been dealing with this for [address] Callahan felt that her left lower extremity would not survive an amputation attempt. Thanks very much for taking a look at her. 11/02/24 09:08 Consult to Neurology / Tele-Neurology Stat Comment: Parkinson's meds adjustment Consulting Provider: Matteo Bedoya 11/03/24 09:27 Consult to Cardiology Stat Comment: Preop clearance, lower extremity amputation Consulting Provider: Alvaro Coffman 11/03/24 15:24 Referral Dylon Stat Comment: Attending Provider on DC: Adal Lawler MD Discharging Provider: Adal Lawler MD DS: Diagnosis Problem List Completed Was Problem List Reviewed/Reconciled?: Yes Hospital Course Hospital Course Hospital course: Patient is a 69-year-old female with HTN, T2DM, left foot osteomyelitis, Parkinson's and GERD who was admitted for left foot osteomyelitis and hypertensive emergency, which was controlled with labetalol and resuming home antihypertensives. Left foot CT revealed early osteomyelitis, which was confirmed on MRI, as recommended by ortho. ID, Ortho, general surgery and vascular surgery were all consulted. ID recommended 6 weeks of Rocephin 2 g IV daily and p.o. doxycycline 100 mg p.o. twice daily for 6 weeks with weekly CBC, renal panel, ESR and PICC line removal at the end of treatment (12/10/2024). Patient was to see vascular surgery in November, however was able to have consultation done while inpatient. Vascular surgery requested CTA runoff which revealed three-vessel runoff to the foot, with vascular surgery recommending left below-knee amputation. General surgery debrided left heel, with no bleeding noted from the wound bed, and spoke with family regarding BKA. Patient and her decided against BKA at this time. Plan is to discharge with home health, and PICC line for antibiotics and pain control. Patient was advised to follow-up with general surgery outpatient if she wanted a reevaluation for BKA. For patient's Parkinson's, it was noted that her tremors have gotten worse. She was started on Sinemet and neuro was consulted, recommending additional pramipexole. Patient was stable for discharge home, with home health. #Left foot osteomyelitis, s/p left heel debridement #Peripheral arterial disease #Peripheral neuropathy #Parkinson's #Hypertensive emergency, resolved #HTN #GERD #Hypothyroidism #Insomnia #Depression #T2DM Patient seen and care discussed with my attending Dr. Singleton. Adal Lawler MD PGY-3 Status at Discharge Cognitive/behavioral status at discharge: AAOx3 Time Spent with Patient Time attestation: Total time spent providing and/or coordinating discharge services: Time spent: Greater than 30 minutes Exam Vital Signs Temp Pulse Resp BP Pulse Ox O2 Del Method 98.0 F 84 18 126/51 L 96 Room Air 11/04/24 08:00 11/04/24 12:00 11/04/24 08:00 11/04/24 08:32 11/04/24 08:00 11/04/24 08:00 Narrative Exam Gen: AAOx3, elderly female, in moderate distress from pain HEENT: NCAT, PERRLA, EOMI, MMM, no LAD CVS: normal S1, S2. RRR. No MRG. Resp: CTA B/L. No rhonchi, rales, crackles or wheezing Abd: soft, non-tender, non-distended. BS+ in all 4 quadrants MSK: Good ROM in BUE & BLE. Thin extremities. R arm wound covered with allevyn. Left foot wrapped. R foot with 2nd and 3rd toe amputation. Dec cap refill in left foot (~7 sec) Neuro: CN II-XII grossly intact. Occasional intentional tremors noted Discharge Plan Plan Patient Disposition: Home w/HOME HEALTH Patient condition on transfer: Stable Care Plan Goals: Follow up with PCP within 1-2 weeks after discharge Can follow up with Dr. Mcghee (general surgery) outpatient if patient wishes to be re-evaluated for left BKA You will need to complete antibiotics as prescribed for osteomyelitis: IV Rocephin 2g daily and p.o. Doxycycline 100mg twice daily until 12/10/2024, with weekly CBC, renal panel and ESR for monitoring. At the end of treatment, your PICC line can be discontinued. Can use [place] 5 q4h as needed for pain control For Parkinson's, take carbidopa-levodopa and pramipexole, as prescribed. Can follow up with neurology outpatient Continue your other home medications as previously prescribed Prescriptions/Referrals Prescriptions/Med Rec: [facility]-castor oil [Venelex] Ointment 1 applic top BID 30 Days Qty: 60 1RF carbidopa-levodopa 25-100 mg Tablet 1 tab PO TID 30 Days Qty: 90 0RF doxycycline hyclate 100 mg Tablet 100 mg PO BID 36 Days Qty: 72 0RF ceftriaxone 2 gram recon soln 2 g IV QDAY 36 Days hydrocodone-acetaminophen 5-325 mg Tablet 1 tab PO Q4H MDD 30 PRN (Reason: Pain Scale 4-6 (Moderate) 14 Days Qty: 84 0RF pramipexole 0.25 mg Tablet 0.25 mg PO TID 30 Days Qty: 90 0RF Continued pantoprazole [Protonix] 40 mg tablet,delayed release (DR/EC) 40 mg PO QDAY Qty: 30 0RF metformin 1,000 mg tablet 1,000 mg PO BID Qty: 60 0RF levothyroxine 88 mcg capsule 88 mcg PO QDAY Qty: 30 0RF gabapentin 600 mg Tablet 600 mg PO BID atorvastatin 10 mg Tablet 10 mg PO QDAY carvedilol 3.125 mg tablet 3.125 mg PO BID ferrous sulfate [Iron (ferrous sulfate)] 325 mg (65 mg iron) Tablet 325 mg PO QDAY Januvia 25 mg Tablet 25 mg PO QDAY duloxetine 20 mg Capsule, Delayed Rel Sprinkle 20 mg PO DAILY Discontinued levodopa 100 mg Tablet 100 mg PO TID Referrals: Armen Taylor MD [Primary Care Provider] - Yuly Mcghee MD [Physician] - (You will receive a phone call to confirm surgery on Nov 17 at 730. Please call the office with concerns or questions or if you would like to discuss surgery further before proceeding) Patient/Caregiver Discharge Instructions Discharge Activity: as per physical therapy Other Discharge Activity Instructions:: ? Will need weekly CBC/CMP/ESR to evaluate improvement Education Materials: Osteomyelitis Dc Print Language: German Stand Alone Forms: [employer] Award Info., Patient Portal Info Letter Discharge Order Discharge Orders: Discharge (Routine); Ordered 11/04/24 Ordered By: Adal Lawler Quality Discharge Quality Measures VTE prophylaxis Attestestation Attestation I reviewed labs, imaging, EKG, home medications and prior available records. Face to face evaluation was performed by me. I have personally examined the patient and discussed assessment and plan with the IM team. I reviewed the resident note and agree with the plan with exceptions as below. Left foot osteomyelitis Hypertensive urgency Uncontrolled hypertension Parkinson's disease Peripheral vascular disease Uncontrolled diabetes mellitus with hyperglycemia, type II Follow-up MRI of the left lower extremity: Did show early osteomyelitis. Changed vancomycin and Zosyn to Rocephin and doxycycline. Consulted IR for PICC line placement. She will need 6 weeks of treatment. 2 g daily till 12/11/2024. Home health ordered. scaffold worker is working on the case. Consulted neurology for worsening Parkinson symptoms: Recommended adding pramipexole to carbidopa levodopa Concern for inability to heal given the severe PAD. Consulted vascular surgery Dr. Rudd. Recommended below the knee amputation. Discussed with Dr. Mcghee: Plan for amputation on 11/17. Consulted cardiology for preop clearance and ordered echocardiogram. Discussed with cardiology: She may need a stress test prior to OR. Patient is still thinking about the surgery itself and did not give consent yet. Resume home BP medications Time spent is 40 minutes. More than 50% of the time was spent on patient education and coordination of care.
== END 2024-11-04 15:47 | disposition home health service (06) | DRG 623 ==
LOC: SERX 06:34 → SERHOLD 10:16 → S3SX 12:17
PROVIDERS: Emergency Medicine; Student in an Organized Health Care Education/Training Program; Admitting Provider Student in an Organized Health Care Education/Training Program; Emergency Provider Emergency Medicine; PCP Family Medicine; Visit Provider Student in an Organized Health Care Education/Training Program
DX: E11.69 Type 2 diabetes mellitus with other specified complication (principal); E11.52 Type 2 diabetes mellitus with diabetic peripheral angiopathy with gangrene; E87.20 Acidosis, unspecified; L97.429 Non-pressure chronic ulcer of left heel and midfoot with unspecified severity; I16.1 Hypertensive emergency; L03.116 Cellulitis of left lower limb; M86.672 Other chronic osteomyelitis, left ankle and foot; E11.42 Type 2 diabetes mellitus with diabetic polyneuropathy; I70.201 Unspecified atherosclerosis of native arteries of extremities, right leg; E11.621 Type 2 diabetes mellitus with foot ulcer; E11.65 Type 2 diabetes mellitus with hyperglycemia; F32.A Depression, unspecified; G20.A1 Parkinson's disease without dyskinesia, without mention of fluctuations; G47.00 Insomnia, unspecified; I10 Essential (primary) hypertension; I35.8 Other nonrheumatic aortic valve disorders; K21.9 Gastro-esophageal reflux disease without esophagitis; E78.5 Hyperlipidemia, unspecified; E03.9 Hypothyroidism, unspecified; I45.10 Unspecified right bundle-branch block; Z85.3 Personal history of malignant neoplasm of breast; Z66 Do not resuscitate; Z79.84 Long term (current) use of oral hypoglycemic drugs; Z79.899 Other long term (current) drug therapy
CPT/HCPCS: 36415; 71046; 73701; 73718; 73721; 75635; 76700; 80053; 80061; 80202; 80307; 81001; 83036; 83605; 83690; 83735; 83880; 84100; 84484; 85025; 85610; 85652; 85730; 86140; 87070; 87077; 87086; 87186; 87205; 93005; 93225; 93306; 96365; 97162; 99285; A4649; C1751; C1894; J0360; J0696; J1642; J1815; J2270; J2470; J2543; J3370; J3490; J7050; Q9967; A9270

== ENCOUNTER 2024-11-08 10:32 | Emergency (ER) | payer OTHER, MEDICAID, SELFPAY ==
[2024-11-08 10:55] VITALS: PULSE 72; RESP 16; TEMP 36.6; O2SAT 99; BMI 23.3
--- NOTE | 2024-11-08 11:00 | EDNOTE_ITS ---
<Statement entered by Libby Joe MD - 11/08/24 16:22> As co-signing physician, I was present and available for consult prn. I concur with the plan and care as documented by the midlevel provider. ED General RME/HPI General Chief complaint: General Adult/Misc Complain Stated complaint: PICC LINE NOT WORKING Time Seen by Provider: 11/08/24 10:40 Arrival date/time: 11/08/24 10:32 69-year-old female currently on a course of antibiotics through her PICC line for infection to her left foot presents stating she was able to receive her antibiotics today but the nurses unable to draw blood from the PICC line patient is here for evaluation of her PICC line Limitations: no limitations Related Data Home Medications ?Medication ?Instructions ?Recorded ?Confirmed atorvastatin 10 mg tablet 10 mg PO QDAY 10/19/24 10/19/24 carvedilol 3.125 mg tablet 3.125 mg PO BID 10/19/24 10/19/24 duloxetine 20 mg capsule,delayed 20 mg PO DAILY 10/19/24 10/19/24 release sprinkle ferrous sulfate 325 mg (65 mg 325 mg PO QDAY 10/19/24 10/19/24 iron) tablet (Iron (ferrous sulfate)) gabapentin 600 mg tablet 600 mg PO BID 10/19/24 10/19/24 sitagliptin phosphate 25 mg tablet 25 mg PO QDAY 10/19/24 10/19/24 (Januvia) Previous Rx's ?Medication ?Instructions ?Recorded levothyroxine 88 mcg capsule 88 mcg PO QDAY #30 caps 12/03/23 metformin 1,000 mg tablet 1,000 mg PO BID #60 tabs 12/03/23 pantoprazole 40 mg tablet,delayed 40 mg PO QDAY #30 tabs 12/03/23 release (Protonix) balsam tammy-castor oil topical 1 applic top BID 30 days #60 grams 11/04/24 ointment (Venelex topical ointment) carbidopa 25 mg-levodopa 100 mg 1 tab PO TID 30 days #90 tabs 11/04/24 tablet ceftriaxone 2 gram intravenous 2 g IV QDAY 36 days 11/04/24 solution doxycycline hyclate 100 mg tablet 100 mg PO BID 36 days #72 tabs 11/04/24 hydrocodone 5 mg-acetaminophen 325 1 tab PO Q4H PRN Pain Scale 4-6 11/04/24 mg tablet (Moderate 14 days #84 tabs pramipexole 0.25 mg tablet 0.25 mg PO TID 30 days #90 tabs 11/04/24 Allergies Allergy/AdvReac Type Severity Reaction Status Date / Time No Known Allergies Allergy Verified 10/20/24 14:27 Review of Systems Review of Systems Systems Reviewed: All systems reviewed, normal except as documented Constitutional Constitutional: Reports system reviewed and no additional complaints, except as documented, Denies fever(s) and Denies headache(s) Eyes Eyes: Reports system reviewed and no additional complaints, except as documented and Denies blurry vision ENT Ears, Nose, Mouth, and Throat: Reports system reviewed and no additional complaints, except as documented, Denies headache(s), Denies nasal congestion and Denies nasal discharge Cardiovascular Cardiovascular: Reports system reviewed and no additional complaints, except as documented, Denies chest pain and Denies dyspnea Respiratory Respiratory: Reports system reviewed and no additional complaints, except as documented, Denies chest congestion, Denies cough and Denies dyspnea Gastrointestinal Gastrointestinal: Reports system reviewed and no additional complaints, except as documented and Denies abdominal pain Integumentary/Breasts Skin/Breast: Reports system reviewed and no additional complaints, except as documented, Denies rash and Reports other (PICC line left upper arm) Neurologic Neurologic: Reports system reviewed and no additional complaints, except as documented, Reports as per HPI and Denies headache(s) Past Medical History Past Medical History NEUROLOGIC: Positive Neurological Disorders and Parkinson's Disease; Negative Seizures CARDIAC: Positive Hypercholesterolemia and Hypertension; Negative Cardiac Disorders, Angina, Coronary Artery Disease, Atherosclerotic Heart Disease or Congestive Heart Failure RESPIRATORY: Negative Chronic Obstructive Pulmonary Disease (COPD), Asthma, Pneumonia, Tuberculosis or Sleep Apnea GASTROINTESTINAL: Positive Gastrointestinal Disorders, Gastrointestinal Bleed and Gastroesophageal Reflux Disease; Negative Hepatitis GENITOURINARY: Positive Genitourinary Disorders and Kidney Stones; Negative Renal Disease REPRODUCTIVE: Positive Previous Pregnancies MUSCULOSKELETAL: Positive Musculoskeletal Disorders and Arthritis ENT: Positive Cataracts ENDOCRINE: Positive Endocrine Disorders, Diabetes Mellitus Type 2 and Hypothyroidism; Negative Diabetes Mellitus Type 1 HEMATOLOGIC: Positive Blood Disorders and Anemia; Negative Sickle Cell Disease PSYCHO/SOCIAL: Positive Depression and Anxiety OTHER HISTORY: Positive Hospitalization, Falls, Blood Transfusions, Chicken Pox and Measles; Negative Autoimmune Disease, Blood Transfusion Reaction, Anesthesia Reactions, Chemotherapy, Radiation Therapy or Cancer Family History FAMILY HISTORY: Positive Family Cardiac Disorders and Family Surgery; Negative Family Psychiatric Problems, Family Respiratory Disorders, Family Gastrointestinal Problems, Family Cancer or Family Anesthesia Reaction Surgical History SURGICAL: Positive Bowel Surgery; Negative Cardiac Surgery, Coronary Artery Bypass Graft, Ear Surgery or Joint Replacement Social History SMOKING STATUS: Never smoker SECOND HAND EXPOSURE: No SUBSTANCE USE: does not use ED Exam General Limitations: Present no limitations General appearance: Present alert and in no apparent distress Head Head exam: Present atraumatic Eye Eye exam: Present normal appearance, PERRL and EOMI ENT ENT exam: Present normal exam, normal oropharynx and mucous membranes moist Neck Neck exam: Present normal inspection, full ROM and trachea midline Chest Chest inspection: Present normal inspection and symmetric chest wall rise Respiratory Respiratory exam: Present normal lung sounds bilaterally Cardiovascular Cardiovascular exam: Present regular rate, normal rhythm and normal heart sounds Abdominal Exam Abdominal exam: Present soft and normal bowel sounds Extremities Exam Extremities exam: Present full ROM and other (PICC line left upper arm); Absent tenderness Back Exam Back exam: Present normal inspection and full ROM Neurological Exam Neurological exam: Present alert, oriented X3 and CN II-XII intact Psychiatric Psychiatric exam: Present normal affect and normal mood Skin Skin exam: Present warm, dry, intact and normal color Course Quality Measures none Vital Signs Vital signs: Vital Signs Temperature 97.9 F 11/08/24 10:55 Pulse Rate 72 11/08/24 10:55 Respiratory Rate 16 11/08/24 10:55 Pulse Oximetry (%) 99 11/08/24 10:55 Oxygen Delivery Method Room Air 11/08/24 10:55 O2 saturation 99% room air within normal limits MDM Patient data External records reviewed:: [facility] previous records Clinical information provided by:: patient Social determinants that could affect healthcare access:: none Patient has the following chronic illnesses:: See history How is presenting disease/condition affected by chronic disease/condition?: caused by Evaluation data The following diagnostics were reviewed and interpreted by me:: other (specify) (N/A) Lab and/or radiology exams considered but not ordered:: Consider not indicated Interpretation Summary: N/A Medications Medications considered but not ordered:: Given no meds Medication administrations:: Given no meds Consultations Consultation(s) initiated? (list below): No Diagnosis Differential Diagnosis ED Complaint MDM: PICC line occlusion, PICC line problem Most likely diagnosis given after review of the tests above:: PICC line occlusion Admission Indicated Admission indicated?: not indicated Explain why admission is indicated or not indicated:: No criteria Admission Request Was there a request for admission?: No Disposition Plan Disposition Plan: Discharge Discharge Attestation Discharge Attestation: The patient and all family members were given an opportunity to ask questions and understood the discharge instructions. Discharge instructions specifically effects, indications for sooner follow up or return to the emergency department, and the expected course of current diagnosis. Patient condition: Stable Medical Decision Making MDM Narrative MDM Narrative: 69-year-old female currently on a course of antibiotics through her PICC line for infection to her left foot presents stating she was able to receive her antibiotics today but the nurses unable to draw blood from the PICC line patient is here for evaluation of her PICC line On exam there is no erythema or swelling at the PICC line site Explained to the patient that there is no way to troubleshoot this today the radiologist and IR team is not here Patient struck to return tomorrow for further evaluation Differential Diagnosis Differential Diagnosis: PICC line occlusion, PICC line problem Medical Records Medical records reviewed: Yes I reviewed the patient's medical records. Discharge Plan Plan Patient Disposition: HOME (Self Care) Disposition Comment: Stable Prescriptions/Referrals Prescriptions/Med Rec: No Action pantoprazole [Protonix] 40 mg tablet,delayed release (DR/EC) 40 mg PO QDAY Qty: 30 0RF metformin 1,000 mg tablet 1,000 mg PO BID Qty: 60 0RF levothyroxine 88 mcg capsule 88 mcg PO QDAY Qty: 30 0RF balsam tammy-castor oil [Venelex] Ointment 1 applic top BID 30 Days Qty: 60 1RF carbidopa-levodopa 25-100 mg Tablet 1 tab PO TID 30 Days Qty: 90 0RF doxycycline hyclate 100 mg Tablet 100 mg PO BID 36 Days Qty: 72 0RF ceftriaxone 2 gram recon soln 2 g IV QDAY 36 Days hydrocodone-acetaminophen 5-325 mg Tablet 1 tab PO Q4H MDD 30 PRN (Reason: Pain Scale 4-6 (Moderate) 14 Days Qty: 84 0RF pramipexole 0.25 mg Tablet 0.25 mg PO TID 30 Days Qty: 90 0RF gabapentin 600 mg Tablet 600 mg PO BID atorvastatin 10 mg Tablet 10 mg PO QDAY carvedilol 3.125 mg tablet 3.125 mg PO BID ferrous sulfate [Iron (ferrous sulfate)] 325 mg (65 mg iron) Tablet 325 mg PO QDAY Januvia 25 mg Tablet 25 mg PO QDAY duloxetine 20 mg Capsule, Delayed Rel Sprinkle 20 mg PO DAILY Problem List Clinical Impression: Occluded PICC line Patient/Caregiver Discharge Instructions Additional Instructions: Please return tomorrow for evaluation of your PICC line and possible replacement Print Language: Cambodian Stand Alone Forms: Marilyn Award Info., Patient Portal Info Letter PA/GENERAL OFFICE ASSISTANT Supervising Physician PA/GENERAL OFFICE ASSISTANT Supervising Physician: Dr. joe
== END 2024-11-08 11:09 | disposition home or self-care (01) ==
LOC: SERX 11:06
PROVIDERS: Emergency Provider Emergency Medicine; PCP Family Medicine
DX: T82.594A Other mechanical complication of infusion catheter, initial encounter (principal); Y84.8 Other medical procedures as the cause of abnormal reaction of the patient, or of later complication, without mention of misadventure at the time of the procedure
CPT/HCPCS: 99281

== ENCOUNTER 2024-11-09 09:28 | Emergency (ER) | payer OTHER, MEDICAID, SELFPAY ==
[2024-11-09 10:08] VITALS: BP 128/90; PULSE 75; RESP 18; TEMP 36.7; O2SAT 99
[2024-11-09 10:10] VITALS: BMI 23.3
--- NOTE | 2024-11-09 12:00 | PC.NURSE ---
Per nursing order, accessed PICC line and attempted to flush. Red line flushed successfully. Purple hub line would not flush. Changed port using sterile technique. Line still not not flush. Provider made aware.
--- NOTE | 2024-11-09 12:29 | EDNOTE_ITS ---
<Statement entered by Libby Joe MD - 11/15/24 17:56> As co-signing physician, I was present and available for consult prn. I concur with the plan and care as documented by the midlevel provider. ED General RME/HPI General Chief complaint: General Adult/Misc Complain Stated complaint: PICC line, only 1 port is working Time Seen by Provider: 11/09/24 10:25 Source: patient Arrival date/time: 11/09/24 09:28 69-year-old female currently on a course of antibiotics through her PICC line for infection to her left foot presents today for possible picc line evaluation. She reports she was unable to receive her antibiotics for her foot ulcer due to home health nurses unable to draw blood from the PICC line prior to administration of ABX. Patient was evaluated yesterday and was told the PICC would possibly be evaluated today closed due the Holiday. Limitations no limitations Related Data Home Medications ?Medication ?Instructions ?Recorded ?Confirmed atorvastatin 10 mg tablet 10 mg PO QDAY 10/19/24 10/19/24 carvedilol 3.125 mg tablet 3.125 mg PO BID 10/19/24 10/19/24 duloxetine 20 mg capsule,delayed 20 mg PO DAILY 10/19/24 10/19/24 release sprinkle ferrous sulfate 325 mg (65 mg 325 mg PO QDAY 10/19/24 10/19/24 iron) tablet (Iron (ferrous sulfate)) gabapentin 600 mg tablet 600 mg PO BID 10/19/24 10/19/24 sitagliptin phosphate 25 mg tablet 25 mg PO QDAY 10/19/24 10/19/24 (Januvia) Previous Rx's ?Medication ?Instructions ?Recorded levothyroxine 88 mcg capsule 88 mcg PO QDAY #30 caps 12/03/23 metformin 1,000 mg tablet 1,000 mg PO BID #60 tabs 12/03/23 pantoprazole 40 mg tablet,delayed 40 mg PO QDAY #30 tabs 12/03/23 release (Protonix) deep munoz-castor oil topical 1 applic top BID 30 days #60 grams 11/04/24 ointment (Venelex topical ointment) carbidopa 25 mg-levodopa 100 mg 1 tab PO TID 30 days #90 tabs 11/04/24 tablet ceftriaxone 2 gram intravenous 2 g IV QDAY 36 days 11/04/24 solution doxycycline hyclate 100 mg tablet 100 mg PO BID 36 days #72 tabs 11/04/24 hydrocodone 5 mg-acetaminophen 325 1 tab PO Q4H PRN Pain Scale 4-6 11/04/24 mg tablet (Moderate 14 days #84 tabs pramipexole 0.25 mg tablet 0.25 mg PO TID 30 days #90 tabs 11/04/24 Allergies Allergy/AdvReac Type Severity Reaction Status Date / Time No Known Allergies Allergy Verified 10/20/24 14:27 Review of Systems Review of Systems Systems Reviewed: All systems reviewed, normal except as documented Narrative Review of Systems: Gen: No fever, no chills, no weight loss EYES: No discharge, no visual changes, no pain HEENT: No ear pain, no congestion, no sore throat PULM: No shortness of breath, no cough, no congestion CV: No chest pain, no dyspnea on exertion, no palpitations GI: No nausea, no vomiting, no diarrhea, no pain, no constipation : No frequency, no urgency,? no dysuria Musc/skel: No joint pain, no back pain Skin: No rash? ED Exam Narrative Physical exam: General: Sittiing in Exam table in no acute distress, answering questions appropriately HENT: normocephalic, atraumatic, EOMI, PERRLA, moist mucous membranes Chest: chest wall is nontender Cardiac: regular rate and rhythm, normal S1 and S2, no murmurs, rubs, or gallops, capillary refill ?2 seconds Pulmonary: clear to auscultation bilaterally, no wheezing, crackles, or rhonchi Abdominal: active bowel sounds, soft, nontender, nondistended Neuro: A&OX3, CN II-XII intact, sensation grossly intact bilaterally in UE and LE. Skin: no rashes, no ecchymosis, +picc line insertion notec to left upper extremity. Ext: no lower extremity edema Course Quality Measures none Orders Category Date Time Status Miscellaneous Nursing Order NOW Care 11/09/24 10:51 Completed CBC Stat Lab 11/09/24 13:01 Completed CMP [Comprehensive Metabolic Panel] Stat Lab 11/09/24 13:01 Completed ESR [Sed Rate (ESR)] Stat Lab 11/09/24 13:01 Completed Vital Signs Vital signs: Vital Signs Temperature 98.1 F 11/09/24 10:08 Pulse Rate 75 11/09/24 10:08 Respiratory Rate 18 11/09/24 10:08 Blood Pressure 128/90 H 11/09/24 10:08 Pulse Oximetry (%) 99 11/09/24 10:08 Oxygen Delivery Method Room Air 11/09/24 10:08 [facility] Patient data External records reviewed:: [facility] previous records Clinical information provided by:: patient Social determinants that could affect healthcare access:: none Patient has the following chronic illnesses:: DM, HYperlipedemia, DM, Hypothyrodism How is presenting disease/condition affected by chronic disease/condition?: e xacerbated by Evaluation data The following diagnostics were reviewed and interpreted by me:: other (specify) Lab and/or radiology exams considered but not ordered:: none Interpretation Summary: none Medications Medications considered but not ordered:: none Medication administrations:: none Consultations Consultation(s) initiated? (list below): No Diagnosis Differential Diagnosis ED Complaint MDM: Occluded PICC line Most likely diagnosis given after review of the tests above:: Occluded PICC line Admission Indicated Admission indicated?: not indicated Explain why admission is indicated or not indicated:: none Admission Request Was there a request for admission?: No Disposition Plan Disposition Plan: Discharge Discharge Attestation Discharge Attestation: The patient and all family members were given an opportunity to ask questions and understood the discharge instructions. Discharge instructions specifically effects, indications for sooner follow up or return to the emergency department, and the expected course of current diagnosis. Patient condition: Stable Medical Decision Making MDM Narrative MDM Narrative: 69-year-old female unable to receive her antibiotics for her foot ulcer due to home health nurses unable to draw blood from the PICC line prior to administration of ABX. Patient was evaluated yesterday and was told the PICC would possibly be evaluated today closed due the Holiday. Patient PICC LINE flushed and only one port is accessible for IV abx treatment outpatient. I spoke with Winifred, Nurse from Home Health, Requested if patient could possibly have labs drawn here and faxed over to the home health center and and to the doctor prior to administration of medication. Home health nurse reports that the patient needed a CBC CMP and a ESR. patient's labs were directly faxed over to home health agency. with these results the patient will be able to receive ceftriaxone as directed. I did advise patient to have a outpatient referral possibilities of revision of PICC line. Or to return on a non holiday when IR is available. Differential Diagnosis Differential Diagnosis: Occluded PICC line Lab Data 11/09/24 13:01 11/09/24 13:01 Labs: Lab Results 11/09/24 Range/Units 13:01 WBC 12.6 H (3.6-11.0) Thou/mm3 RBC 3.57 L (4.00-5.20) Miln/mm3 Hgb 9.3 L (12.0-16.0) g/dL Hct 30.4 L (36.0-46.0) % MCV 85 (80-100) fL MCH 26.1 (25.0-35.0) pg MCHC 30.6 L (31.0-37.0) g/dl RDW Std Deviation 55.9 H (36.4-46.3) fL Plt Count 748 H D (140-440) Thou/mm3 Neut % (Auto) 78 (37-80) % Lymph % (Auto) 15 (10-50) % Evans % (Auto) 4 (0-12) % Eos % (Auto) 1 (0-10) % Baso % (Auto) 1 (0-2.5) % Neut # (Auto) 9.8 H (1.8-7.7) Thou/mm3 Lymph # (Auto) 1.9 (1.0-4.8) Thou/mm3 Evans # (Auto) 0.5 (0.0-0.8) Thou/mm3 Eos # (Auto) 0.1 (0.0-0.5) Thou/mm3 Baso # (Auto) 0.1 (0.0-0.2) Thou/mm3 Immature Gran # (Auto) 0.25 H (0.00-0.00) Thou/mm3 Absolute Nucleated RBC 0.00 (0.00-0.00) Thou/mm3 Immature Gran % 2 H (0-0) % Nucleated RBC % 0 (0) /100 WBC ESR 90 H (0-30) mm/hr Sodium 136 (136-145) mMol/L Potassium 3.9 (3.4-5.1) mMol/L Chloride 104 (98-107) mMol/L Carbon Dioxide 23.1 (20.0-31.0) mMol/L Anion Gap 9 (7-16) BUN 17 (9-23) mg/dL Creatinine 1.1 D (0.6-1.3) mg/dL Estim Creat Clear Calc 39.4 L (>60) mL/min eGFR 54 L (60 - ) See Note BUN/Creatinine Ratio 15 (12-20) Ratio Glucose 152 H (74-106) mg/dL Calculated Osmolality 276 (275-295) Calcium 8.7 (8.3-10.6) mg/dL Corrected Calcium 8.9 (8.5-10.1) mg/dL Total Bilirubin < 0.2 L (0.3-1.2) mg/dL AST 12 (0-34) U/L ALT < 7 L (10-49) U/L Alkaline Phosphatase 102 (46-116) U/L Total Protein 6.7 (5.7-8.2) gm/dL Albumin 3.7 (3.4-4.8) gm/dL Globulin 3.0 (2.3-3.5) gm/dL Albumin/Globulin Ratio 1.2 (1.2-2.2) Discharge Plan Plan Patient Disposition: HOME (Self Care) Patient condition on transfer: Stable Prescriptions/Referrals Prescriptions/Med Rec: No Action pantoprazole [Protonix] 40 mg tablet,delayed release (DR/EC) 40 mg PO QDAY Qty: 30 0RF metformin 1,000 mg tablet 1,000 mg PO BID Qty: 60 0RF levothyroxine 88 mcg capsule 88 mcg PO QDAY Qty: 30 0RF balsam tammy-castor oil [Venelex] Ointment 1 applic top BID 30 Days Qty: 60 1RF carbidopa-levodopa 25-100 mg Tablet 1 tab PO TID 30 Days Qty: 90 0RF doxycycline hyclate 100 mg Tablet 100 mg PO BID 36 Days Qty: 72 0RF ceftriaxone 2 gram recon soln 2 g IV QDAY 36 Days hydrocodone-acetaminophen 5-325 mg Tablet 1 tab PO Q4H MDD 30 PRN (Reason: Pain Scale 4-6 (Moderate) 14 Days Qty: 84 0RF pramipexole 0.25 mg Tablet 0.25 mg PO TID 30 Days Qty: 90 0RF gabapentin 600 mg Tablet 600 mg PO BID atorvastatin 10 mg Tablet 10 mg PO QDAY carvedilol 3.125 mg tablet 3.125 mg PO BID ferrous sulfate [Iron (ferrous sulfate)] 325 mg (65 mg iron) Tablet 325 mg PO QDAY Januvia 25 mg Tablet 25 mg PO QDAY duloxetine 20 mg Capsule, Delayed Rel Sprinkle 20 mg PO DAILY Referrals: John ([facility]),ELIZABETH Balderas [Primary Care Provider] - In 1 week Problem List Clinical Impression: Occluded PICC line Patient/Caregiver Discharge Instructions Discharge Activity: activity as tolerated Additional Instructions: - Reviewed labs were drawn today and will be faxed to your home health nurse for initiation of your antibiotics. You might need to speak to your primary doctor for outpatient order for a PICC line reinsertion or evaluation. Possibly coming on 11/13/2024 early in the a.m. through ER see if it can be replaced. Print Language: Serbian Stand Alone Forms: Marilyn Award Info., Patient Portal Info Letter ALEXANDRE/ELIZABETH Supervising Physician ALEXANDRE/ELIZABETH Supervising Physician: Dr. Burgos
--- NOTE | 2024-11-09 12:32 | PC.CC ---
Shanna ROD was consulted by Bethany regarding who the patient is receiving home health through. Patient is receiving home health services through [facility]. MARCEL provided this information to Bethany.
[2024-11-09 14:04] LABS: Basophils # (Auto) 0.1 Thou/mm3 (0.0-0.2); Basophils % (Auto) 1 % (0-2.5); Eosinophils # (Auto) 0.1 Thou/mm3 (0.0-0.5); Eosinophils % (Auto) 1 % (0-10); Hematocrit 30.4 % (36.0-46.0); Hemoglobin 9.3 g/dL (12.0-16.0); Immature Granulocytes % (Auto) 2 % (0-0); Immature Granulocytes Auto 0.25 Thou/mm3 (0.00-0.00); Lymphocytes # (Auto) 1.9 Thou/mm3 (1.0-4.8); Lymphocytes % (Auto) 15 % (10-50); Mean Corpuscular HGB Conc 30.6 g/dl (31.0-37.0); Mean Corpuscular Hemoglobin 26.1 pg (25.0-35.0); Mean Corpuscular Volume 85 fL (80-100); Monocytes # (Auto) 0.5 Thou/mm3 (0.0-0.8); Monocytes % (Auto) 4 % (0-12); Neutrophils # (Auto) 9.8 Thou/mm3 (1.8-7.7); Neutrophils % (Auto) 78 % (37-80); Nucleated Red Blood Cell % 0 /100 WBC (0); Platelet Count 748 Thou/mm3 (140-440); RDW Standard Deviation 55.9 fL (36.4-46.3); Red Blood Count 3.57 Miln/mm3 (4.00-5.20); White Blood Count 12.6 Thou/mm3 (3.6-11.0)
[2024-11-09 14:36] LABS: Sed Rate (ESR) 90 mm/hr (0-30)
[2024-11-09 14:38] LABS: Alanine Aminotransferase < 7 U/L (10-49); Albumin, Serum 3.7 gm/dL (3.4-4.8); Albumin/Globulin Ratio 1.2 (1.2-2.2); Alkaline Phosphatase 102 U/L (46-116); Anion Gap 9 (7-16); Aspartate Amino Transferase 12 U/L (0-34); BUN/Creatinine Ratio 15 Ratio (12-20); Bilirubin,Total < 0.2 mg/dL (0.3-1.2); Blood Urea Nitrogen 17 mg/dL (9-23); Calcium 8.7 mg/dL (8.3-10.6); Calcium (Corrected) 8.9 mg/dL (8.5-10.1); Carbon Dioxide 23.1 mMol/L (20.0-31.0); Chloride 104 mMol/L (98-107); Creatinine (Component) 1.1 mg/dL (0.6-1.3); Estimated Creatinine Clearance 39.4 mL/min (>60); Glucose 152 mg/dL (74-106); Osmolality,Calculated 276 (275-295); Potassium 3.9 mMol/L (3.4-5.1); Sodium 136 mMol/L (136-145); Total Protein 6.7 gm/dL (5.7-8.2); eGFR 54 See Note
== END 2024-11-09 13:34 | disposition home or self-care (01) ==
PROVIDERS: Nurse Practitioner Primary Care; Emergency Provider Emergency Medicine; PCP Nurse Practitioner Family
DX: T82.594A Other mechanical complication of infusion catheter, initial encounter (principal); Y84.8 Other medical procedures as the cause of abnormal reaction of the patient, or of later complication, without mention of misadventure at the time of the procedure
CPT/HCPCS: 36415; 80053; 85025; 85652; 99283

== ENCOUNTER → 2024-11-10 | Outpatient (CLI) | payer OTHER, MEDICAID, SELFPAY | END | disposition home or self-care (01) | PROVIDERS: PCP Family Medicine; Referring Provider Family Medicine; Visit Provider Student in an Organized Health Care Education/Training Program | DX: E11.621 Type 2 diabetes mellitus with foot ulcer (principal); L89.624 Pressure ulcer of left heel, stage 4; S91.104D Unspecified open wound of right lesser toe(s) without damage to nail, subsequent encounter; X58.XXXD Exposure to other specified factors, subsequent encounter; E11.52 Type 2 diabetes mellitus with diabetic peripheral angiopathy with gangrene; I10 Essential (primary) hypertension; M86.8X7 Other osteomyelitis, ankle and foot; G20.A1 Parkinson's disease without dyskinesia, without mention of fluctuations; I73.9 Peripheral vascular disease, unspecified; Z89.421 Acquired absence of other right toe(s) | CPT/HCPCS: 11042; A9270 ==

== ENCOUNTER → 2024-11-16 | Outpatient (CLI) | payer OTHER, SELFPAY | END | disposition home or self-care (01) | PROVIDERS: PCP Family Medicine; Referring Provider Family Medicine; Visit Provider Student in an Organized Health Care Education/Training Program | DX: E11.621 Type 2 diabetes mellitus with foot ulcer (principal); L89.624 Pressure ulcer of left heel, stage 4; S91.104D Unspecified open wound of right lesser toe(s) without damage to nail, subsequent encounter; X58.XXXD Exposure to other specified factors, subsequent encounter; E11.52 Type 2 diabetes mellitus with diabetic peripheral angiopathy with gangrene; I10 Essential (primary) hypertension; M86.8X7 Other osteomyelitis, ankle and foot; G20.A1 Parkinson's disease without dyskinesia, without mention of fluctuations; I73.9 Peripheral vascular disease, unspecified; Z89.421 Acquired absence of other right toe(s) | CPT/HCPCS: 11042; A9270 ==

== ENCOUNTER → 2024-11-22 | Outpatient (CLI) | payer OTHER, SELFPAY | END | disposition home or self-care (01) | PROVIDERS: PCP Family Medicine; Referring Provider Family Medicine; Visit Provider Surgery | DX: E11.621 Type 2 diabetes mellitus with foot ulcer (principal); L89.624 Pressure ulcer of left heel, stage 4; S91.104D Unspecified open wound of right lesser toe(s) without damage to nail, subsequent encounter; X58.XXXD Exposure to other specified factors, subsequent encounter; E11.52 Type 2 diabetes mellitus with diabetic peripheral angiopathy with gangrene; I10 Essential (primary) hypertension; M86.8X7 Other osteomyelitis, ankle and foot; G20.A1 Parkinson's disease without dyskinesia, without mention of fluctuations; I73.9 Peripheral vascular disease, unspecified; Z89.421 Acquired absence of other right toe(s) | CPT/HCPCS: 11042; A9270 ==

== ENCOUNTER → 2024-11-29 | Outpatient (CLI) | payer OTHER, SELFPAY | END | disposition home or self-care (01) | PROVIDERS: PCP Family Medicine; Referring Provider Family Medicine; Visit Provider Student in an Organized Health Care Education/Training Program | DX: L89.624 Pressure ulcer of left heel, stage 4 (principal); E11.52 Type 2 diabetes mellitus with diabetic peripheral angiopathy with gangrene; I10 Essential (primary) hypertension; M86.8X7 Other osteomyelitis, ankle and foot; G20.A1 Parkinson's disease without dyskinesia, without mention of fluctuations; I73.9 Peripheral vascular disease, unspecified; Z89.421 Acquired absence of other right toe(s); E11.621 Type 2 diabetes mellitus with foot ulcer | CPT/HCPCS: 11042; A9270 ==

== ENCOUNTER → 2024-12-06 | Outpatient (CLI) | payer OTHER, MEDICAID, SELFPAY ==
--- NOTE | 2024-12-06 12:52 | XR_ITS ---
Examination: Abdomen AP single view Technique: AP portable supine abdomen, single view Exam date and time: December 06, 2024 1301 hours INDICATIONS: Right flank pain 3 months, history left kidney surgery FINDINGS: Left ureteral stent satisfactory position Large amounts of stool overlie the kidneys Assessment difficult Heavy vascular calcification IMPRESSION: Left ureteral stent satisfactory position
== END | disposition home or self-care (01) ==
LOC: CDIM 12:40
PROVIDERS: Referring Provider Surgery; Visit Provider Surgery
DX: R10.9 Unspecified abdominal pain (principal)
CPT/HCPCS: 74018

== ENCOUNTER 2024-12-15 09:48 | Outpatient (RCR) | payer OTHER, MEDICAID, SELFPAY | END 2024-12-15 23:59 | disposition home or self-care (01) | LOC: SWHD 09:48 | PROVIDERS: PCP Family Medicine; Referring Provider Family Medicine; Visit Provider Surgery | DX: E11.621 Type 2 diabetes mellitus with foot ulcer (principal); L97.522 Non-pressure chronic ulcer of other part of left foot with fat layer exposed; E11.52 Type 2 diabetes mellitus with diabetic peripheral angiopathy with gangrene; M86.8X7 Other osteomyelitis, ankle and foot; G20.A1 Parkinson's disease without dyskinesia, without mention of fluctuations; I73.9 Peripheral vascular disease, unspecified; Z89.421 Acquired absence of other right toe(s) | CPT/HCPCS: 97597; 11042; 82962; A9270 ==

== ENCOUNTER → 2024-12-22 | Outpatient (CLI) | payer OTHER, MEDICAID, SELFPAY ==
--- NOTE | 2024-12-22 14:50 | XR_ITS ---
Examination: Foot, right, 3 views Technique: AP, oblique, lateral views foot, 3 views Date and time of exam: December 22, 2024 1445 hours INDICATIONS: Nonhealing heel ulcer one year FINDINGS: Severe osteopenia Large soft tissue ulcer defect plantar surface the heel Early cortical bone destruction plantar surface of the heel IMPRESSION: Early osteomyelitis plantar surface of the heel, consider repeat MRI foot without contrast follow-up
[2024-12-22 15:54] LABS: Glucose Estimated Average 140 mg/dL (80-131); Hemoglobin A1C 6.5 % Hgb (4.8-6.0)
== END | disposition home or self-care (01) ==
LOC: CDIM 13:59 → COPL 15:02
PROVIDERS: PCP Registered Nurse; Referring Provider Podiatrist; Visit Provider Radiology Diagnostic Radiology
DX: M86.8X7 Other osteomyelitis, ankle and foot (principal)
CPT/HCPCS: 36415; 73630; 83036

== ENCOUNTER 2025-01-05 08:48 | Outpatient (RCR) | payer OTHER, MEDICAID, SELFPAY | END 2025-01-12 23:59 | disposition home or self-care (01) | LOC: SWHD 08:48 | PROVIDERS: PCP Family Medicine; Referring Provider Family Medicine; Visit Provider Surgery | DX: E11.621 Type 2 diabetes mellitus with foot ulcer (principal); L97.426 Non-pressure chronic ulcer of left heel and midfoot with bone involvement without evidence of necrosis; E11.51 Type 2 diabetes mellitus with diabetic peripheral angiopathy without gangrene; I10 Essential (primary) hypertension; M86.8X7 Other osteomyelitis, ankle and foot; I73.9 Peripheral vascular disease, unspecified; G20.A1 Parkinson's disease without dyskinesia, without mention of fluctuations; Z89.421 Acquired absence of other right toe(s) | CPT/HCPCS: 97597; 11044 ×2; 82962; 99212; A9270; G0277; G0463 ==

== ENCOUNTER → 2025-01-31 | Outpatient (CLI) | payer OTHER, MEDICAID, SELFPAY | END | disposition home or self-care (01) | LOC: SWHD 09:46 | PROVIDERS: PCP Family Medicine; Referring Provider Family Medicine; Visit Provider Student in an Organized Health Care Education/Training Program | DX: E11.621 Type 2 diabetes mellitus with foot ulcer (principal); L97.423 Non-pressure chronic ulcer of left heel and midfoot with necrosis of muscle; L97.522 Non-pressure chronic ulcer of other part of left foot with fat layer exposed; E11.51 Type 2 diabetes mellitus with diabetic peripheral angiopathy without gangrene; I10 Essential (primary) hypertension; M86.8X7 Other osteomyelitis, ankle and foot; I73.9 Peripheral vascular disease, unspecified; G20.A1 Parkinson's disease without dyskinesia, without mention of fluctuations; Z89.421 Acquired absence of other right toe(s) | CPT/HCPCS: 97597; 97598; A9270 ==

== ENCOUNTER → 2025-02-21 | Outpatient (CLI) | payer OTHER, MEDICAID, SELFPAY | END | disposition home or self-care (01) | PROVIDERS: PCP Family Medicine; Referring Provider Family Medicine; Visit Provider Student in an Organized Health Care Education/Training Program | DX: E11.621 Type 2 diabetes mellitus with foot ulcer (principal); L97.522 Non-pressure chronic ulcer of other part of left foot with fat layer exposed; I10 Essential (primary) hypertension; M86.8X7 Other osteomyelitis, ankle and foot; I73.9 Peripheral vascular disease, unspecified; G20.A1 Parkinson's disease without dyskinesia, without mention of fluctuations; Z89.421 Acquired absence of other right toe(s); T81.89XA Other complications of procedures, not elsewhere classified, initial encounter | CPT/HCPCS: 99213; A9270; G0463 ==

== ENCOUNTER → 2025-02-28 | Outpatient (CLI) | payer OTHER, MEDICAID, SELFPAY | END | disposition home or self-care (01) | LOC: SWHD 09:56 | PROVIDERS: PCP Family Medicine; Referring Provider Family Medicine; Visit Provider Student in an Organized Health Care Education/Training Program | DX: E11.621 Type 2 diabetes mellitus with foot ulcer (principal); L97.522 Non-pressure chronic ulcer of other part of left foot with fat layer exposed; T81.89XA Other complications of procedures, not elsewhere classified, initial encounter; I10 Essential (primary) hypertension; M86.8X7 Other osteomyelitis, ankle and foot; I73.9 Peripheral vascular disease, unspecified; G20.A1 Parkinson's disease without dyskinesia, without mention of fluctuations; Z89.421 Acquired absence of other right toe(s) | CPT/HCPCS: 11043; 11046; A9270 ==

== ENCOUNTER → 2025-05-28 | Outpatient (CLI) | payer OTHER, MEDICAID, SELFPAY | END | disposition home or self-care (01) | PROVIDERS: PCP Family Medicine; Referring Provider Family Medicine; Visit Provider Student in an Organized Health Care Education/Training Program | DX: E11.621 Type 2 diabetes mellitus with foot ulcer (principal); I10 Essential (primary) hypertension; L97.523 Non-pressure chronic ulcer of other part of left foot with necrosis of muscle; S98.912D Complete traumatic amputation of left foot, level unspecified, subsequent encounter; X58.XXXD Exposure to other specified factors, subsequent encounter; E11.51 Type 2 diabetes mellitus with diabetic peripheral angiopathy without gangrene; Z79.4 Long term (current) use of insulin | CPT/HCPCS: 11042; 11045 ×2; 99213; A9270; G0463 ==

== ENCOUNTER → 2025-06-04 | Outpatient (CLI) | payer OTHER, MEDICAID, SELFPAY | END | disposition home or self-care (01) | LOC: SWHD 09:13 | PROVIDERS: PCP Family Medicine; Referring Provider Family Medicine; Visit Provider Student in an Organized Health Care Education/Training Program | DX: E11.621 Type 2 diabetes mellitus with foot ulcer (principal); I10 Essential (primary) hypertension; L97.522 Non-pressure chronic ulcer of other part of left foot with fat layer exposed; S98.912D Complete traumatic amputation of left foot, level unspecified, subsequent encounter; X58.XXXD Exposure to other specified factors, subsequent encounter; E11.51 Type 2 diabetes mellitus with diabetic peripheral angiopathy without gangrene; Z79.4 Long term (current) use of insulin | CPT/HCPCS: 11043; 11046 ×4; A9270 ==

== ENCOUNTER → 2025-06-18 | Outpatient (CLI) | payer OTHER, MEDICAID, SELFPAY | END | disposition home or self-care (01) | LOC: SWHD 09:56 | PROVIDERS: PCP Family Medicine; Referring Provider Family Medicine; Visit Provider Surgery | DX: E11.621 Type 2 diabetes mellitus with foot ulcer (principal); I10 Essential (primary) hypertension; L97.522 Non-pressure chronic ulcer of other part of left foot with fat layer exposed; S98.912D Complete traumatic amputation of left foot, level unspecified, subsequent encounter; X58.XXXD Exposure to other specified factors, subsequent encounter; E11.51 Type 2 diabetes mellitus with diabetic peripheral angiopathy without gangrene; Z79.4 Long term (current) use of insulin | CPT/HCPCS: 11042; A9270 ==

== ENCOUNTER 2025-07-13 09:54 | Outpatient (RCR) | payer OTHER, MEDICAID, SELFPAY | END 2025-07-15 23:59 | disposition home or self-care (01) | LOC: SWHD 09:54 | PROVIDERS: PCP Family Medicine; Referring Provider Family Medicine; Visit Provider Surgery | DX: E11.621 Type 2 diabetes mellitus with foot ulcer (principal); I10 Essential (primary) hypertension; L97.522 Non-pressure chronic ulcer of other part of left foot with fat layer exposed; S98.912D Complete traumatic amputation of left foot, level unspecified, subsequent encounter; X58.XXXD Exposure to other specified factors, subsequent encounter; E11.51 Type 2 diabetes mellitus with diabetic peripheral angiopathy without gangrene; Z79.4 Long term (current) use of insulin | CPT/HCPCS: 11042 ×2; 11045 ×5; 82962; 99183; 99212; A9270; G0277; G0463 ==

== ENCOUNTER 2025-08-14 10:04 | Outpatient (RCR) | payer OTHER, MEDICAID, SELFPAY | END 2025-08-14 23:59 | disposition home or self-care (01) | LOC: SWHD 10:04 | PROVIDERS: PCP Family Medicine; Referring Provider Family Medicine; Visit Provider Student in an Organized Health Care Education/Training Program | DX: E11.621 Type 2 diabetes mellitus with foot ulcer (principal); L97.526 Non-pressure chronic ulcer of other part of left foot with bone involvement without evidence of necrosis; S98.912D Complete traumatic amputation of left foot, level unspecified, subsequent encounter; X58.XXXD Exposure to other specified factors, subsequent encounter; E11.51 Type 2 diabetes mellitus with diabetic peripheral angiopathy without gangrene; Z79.4 Long term (current) use of insulin; I10 Essential (primary) hypertension | CPT/HCPCS: 11042; 11045 ×6; 82962; A9270; G0277 ==

== ENCOUNTER 2025-08-25 18:46 | Emergency (ER) | payer OTHER, MEDICAID, SELFPAY ==
[2025-08-25 19:01] VITALS: BP 144/46; PULSE 88; RESP 16; TEMP 36.7; O2SAT 98
--- NOTE | 2025-08-25 19:10 | XR_ITS ---
Examination: CT brain head without contrast. 2-D sagittal coronal reconstructions Date and time of exam: August 25, 2025, 2024 hours INDICATIONS: Episodes of body numbness today CTDI: vol (mGy): 50 DLP: (mGycm): 9.88 Technique: Multiple CT axial sections of the brain have been obtained, 5 mm slice thickness. Contrast has not been administered. 2-D sagittal, coronal reconstructions have been obtained Low dose protocols were performed. One or more of the following dose reduction techniques were used; automated exposure control, adjustment of the mA and/or KV according to patient size, use of iterative reconstruction technique. Findings: No significant ventricular enlargement. Intra-axial or extra-axial hemorrhage density is not seen. No mass effect or midline shift Basal cisterns are not remarkable. Fourth ventricle is midline. Cranial vault intact. Impression: Negative for acute hemorrhage, mass effect or midline shift Advise clinical correlation and follow-up accordingly
--- NOTE | 2025-08-25 19:10 | PD.EDRME ---
Rapid Medical Screening Exam RME Arrival date/time: 08/25/25 18:46 This is a case of 69-year-old female with history of hypothyroid diabetes came in in the emergency room due to bilateral arm and hand numbness for 3 weeks worsening symptoms thus patient decided to sought consult here in the emergency room Chief Complaint: Extremity Problem,Nontraumatic Time Seen by Provider: 08/25/25 19:10 Vital signs: Vital Signs Temperature 98.0 F 08/25/25 19:01 Pulse Rate 88 08/25/25 19:01 Respiratory Rate 16 08/25/25 19:01 Blood Pressure 144/46 H 08/25/25 19:01 Pulse Oximetry (%) 98 08/25/25 19:01 Oxygen Delivery Method Room Air 08/25/25 19:01
[2025-08-25 19:32] LABS: Basophils # (Auto) 0.1 Thou/mm3 (0.0-0.2); Basophils % (Auto) 1 % (0-2.5); Eosinophils # (Auto) 0.0 Thou/mm3 (0.0-0.5); Eosinophils % (Auto) 0 % (0-10); Hematocrit 33.5 % (36.0-46.0); Hemoglobin 10.5 g/dL (12.0-16.0); Immature Granulocytes Auto 0.96 Thou/mm3 (0.00-0.00); Lymphocytes # (Auto) 2.1 Thou/mm3 (1.0-4.8); Lymphocytes % (Auto) 14 % (10-50); Mean Corpuscular HGB Conc 31.3 g/dl (31.0-37.0); Mean Corpuscular Hemoglobin 28.0 pg (25.0-35.0); Mean Corpuscular Volume 89 fL (80-100); Monocytes # (Auto) 0.6 Thou/mm3 (0.0-0.8); Monocytes % (Auto) 4 % (0-12); Neutrophils # (Auto) 10.6 Thou/mm3 (1.8-7.7); Neutrophils % (Auto) 74 % (37-80); Nucleated Red Blood Cell # 0.00 Thou/mm3 (0.00-0.00); Nucleated Red Blood Cell % 0 /100 WBC (0); Platelet Count 547 Thou/mm3 (140-440); RDW Standard Deviation 57.3 fL (36.4-46.3); Red Blood Count 3.75 Miln/mm3 (4.00-5.20); White Blood Count 14.3 Thou/mm3 (3.6-11.0)
[2025-08-25 19:52] LABS: Alanine Aminotransferase 19 U/L (10-49); Albumin, Serum 3.3 gm/dL (3.4-4.8); Albumin/Globulin Ratio 1.3 (1.2-2.2); Alkaline Phosphatase 102 U/L (46-116); Anion Gap 12 (7-16); Aspartate Amino Transferase 12 U/L (0-34); BUN/Creatinine Ratio 30 Ratio (12-20); Bilirubin,Total < 0.2 mg/dL (0.3-1.2); Blood Urea Nitrogen 24 mg/dL (9-23); Calcium 8.8 mg/dL (8.3-10.6); Calcium (Corrected) 9.4 mg/dL (8.5-10.1); Carbon Dioxide 19.5 mMol/L (20.0-31.0); Chloride 108 mMol/L (98-107); Creatinine (Component) 0.8 mg/dL (0.6-1.3); Globulin 2.6 gm/dL (2.3-3.5); Glucose 279 mg/dL (74-106); Osmolality,Calculated 291 (275-295); Potassium 4.9 mMol/L (3.4-5.1); Sodium 139 mMol/L (136-145); Total Protein 5.9 gm/dL (5.7-8.2); eGFR > 60 See Note
--- NOTE | 2025-08-25 22:11 | PD.EDEXREM ---
ED Extremity Problem RME/HPI General Chief complaint: Extremity Problem,Nontraumatic Stated complaint: Right arm numbness X 3 weeks Time Seen by Provider: 08/25/25 19:10 Arrival date/time: 08/25/25 18:46 Limitations: no limitations RME / HPI RME / HPI Narrative: 08/25/25 18:46 This is a case of 69-year-old female with history of hypothyroid diabetes came in in the emergency room due to bilateral arm and hand numbness for 3 weeks worsening symptoms thus patient decided to sought consult here in the emergency room. Patient is already taking gabapentin 600 mg 3 times a day. States also has scheduled appointment to receive bilateral hand injections to see if it will help them be less stiff. History of left foot amputation Related Data Home Medications ?Medication ?Instructions ?Recorded ?Confirmed atorvastatin 10 mg tablet 10 mg PO QDAY 10/19/24 10/19/24 carvedilol 3.125 mg tablet 3.125 mg PO BID 10/19/24 10/19/24 duloxetine 20 mg capsule,delayed 20 mg PO DAILY 10/19/24 10/19/24 release sprinkle ferrous sulfate 325 mg (65 mg 325 mg PO QDAY 10/19/24 10/19/24 iron) tablet (Iron (ferrous sulfate)) gabapentin 600 mg tablet 600 mg PO BID 10/19/24 10/19/24 sitagliptin phosphate 25 mg tablet 25 mg PO QDAY 10/19/24 10/19/24 (Januvia) Previous Rx's ?Medication ?Instructions ?Recorded levothyroxine 88 mcg capsule 88 mcg PO QDAY #30 caps 12/03/23 metformin 1,000 mg tablet 1,000 mg PO BID #60 tabs 12/03/23 pantoprazole 40 mg tablet,delayed 40 mg PO QDAY #30 tabs 12/03/23 release (Protonix) balsam tammy-castor oil topical 1 applic top BID 30 days #60 grams 11/04/24 ointment (Venelex topical ointment) hydrocodone 5 mg-acetaminophen 325 1 tab PO BID PRN pain #14 tabs 11/16/25 mg tablet hydrocodone 5 mg-acetaminophen 325 1 tab PO BID PRN pain #14 tabs 11/22/25 mg tablet hydrocodone 5 mg-acetaminophen 325 1 tab PO BID PRN pain #14 tabs 01/08/25 mg tablet hydrocodone 5 mg-acetaminophen 325 1 tab PO BID PRN pain #14 tabs 11/22/25 mg tablet hydrocodone 5 mg-acetaminophen 325 1 tab PO BID PRN pain #14 tabs 11/22/25 mg tablet hydrocodone 5 mg-acetaminophen 325 1 tab PO QDAY #30 tabs 11/29/25 mg tablet hydrocodone 5 mg-acetaminophen 325 1 tab PO BID #30 tabs 12/13/25 mg tablet hydrocodone 5 mg-acetaminophen 325 1 tab PO BID PRN pain #30 tabs 01/03/25 mg tablet hydrocodone 5 mg-acetaminophen 325 1 tab PO Q8H PRN pain #90 tabs 02/22/25 mg tablet Allergies Allergy/AdvReac Type Severity Reaction Status Date / Time No Known Allergies Allergy Verified 08/25/25 18:50 Review of Systems Review of Systems Systems Reviewed: All systems reviewed, normal except as documented Constitutional Constitutional: Denies fever(s) Musculoskeletal Musculoskeletal: Reports as per HPI ED Exam General Limitations: Present no limitations General appearance: Present alert and in no apparent distress Head Head exam: Present atraumatic Eye Eye exam: Present normal appearance, PERRL and EOMI ENT ENT exam: Present normal exam, normal oropharynx and mucous membranes moist Neck Neck exam: Present normal inspection, full ROM and trachea midline Chest Chest inspection: Present normal inspection and symmetric chest wall rise Respiratory Respiratory exam: Present normal lung sounds bilaterally Cardiovascular Cardiovascular exam: Present regular rate, normal rhythm and normal heart sounds Abdominal Exam Abdominal exam: Present soft and normal bowel sounds Extremities Exam Extremities exam: Present full ROM and other (Left hand has better range of motion than right; bony deformities noted) Back Exam Back exam: Present normal inspection and full ROM Neurological Exam Neurological exam: Present alert, oriented X3 and CN II-XII intact Psychiatric Psychiatric exam: Present normal affect and normal mood Skin Skin exam: Present warm, dry, intact and normal color Course Quality Measures none Orders Category Date Time Status CT head/brain wo con Stat Exams 08/25/25 19:10 Completed CBC Stat Lab 08/25/25 19:18 Completed CMP [Comprehensive Metabolic Panel] Stat Lab 08/25/25 19:18 Completed Vital Signs Vital signs: Vital Signs Temperature 98.0 F 08/25/25 19:01 Pulse Rate 88 08/25/25 19:01 Respiratory Rate 16 08/25/25 19:01 Blood Pressure 144/46 H 08/25/25 19:01 Pulse Oximetry (%) 98 08/25/25 19:01 Oxygen Delivery Method Room Air 08/25/25 19:01 Extremity Problem Patient data External records reviewed:: [facility] previous records Clinical information provided by:: patient and family Social determinants that could affect healthcare access:: other (specify) (Elderly patient unable to care for herself) Patient has the following chronic illnesses:: Diabetes How is presenting disease/condition affected by chronic disease/condition?: exacerbated by Evaluation data The following diagnostics were reviewed and interpreted by me:: lab results Lab and/or radiology exams considered but not ordered:: Consider EKG and cardiac markers however unlikely to change the course of progress today as appears to be muscle skeletal Interpretation Summary: CBC CMP within normal limits no acidosis or ketones CT of head within normal limits Medications / Prescriptions Medications or Prescriptions considered but not ordered:: Consider starting Lyrica however its controlled substance opted against it Medication administrations:: None Consultations Consultation(s) initiated? (list below): No Diagnosis Extremity Problem Differential Diagnosis: gout, superficial thrombophlebitis, deep venous thrombosis of upper extremity and other (Diabetic neuropathy, trigger finger) Most likely diagnosis given after review of the tests above:: Diabetic neuropathy Admission Indicated Admission indicated?: not indicated Admission Request Was there a request for admission?: No Disposition Plan Disposition Plan: Discharge Discharge Attestation Discharge Attestation: The patient and all family members were given an opportunity to ask questions and understood the discharge instructions. Discharge instructions specifically effects, indications for sooner follow up or return to the emergency department, and the expected course of current diagnosis. Patient condition: Stable Discharge Plan Plan Patient Disposition: HOME (Self Care) Discharge Disposition comment: Follow-up with PCP in 2 to 3 days Prescriptions/Referrals Prescriptions/Med Rec: No Action pantoprazole [Protonix] 40 mg tablet,delayed release (DR/EC) 40 mg PO QDAY Qty: 30 0RF metformin 1,000 mg tablet 1,000 mg PO BID Qty: 60 0RF levothyroxine 88 mcg capsule 88 mcg PO QDAY Qty: 30 0RF balsam tammy-castor oil [Venelex] Ointment 1 applic top BID 30 Days Qty: 60 1RF hydrocodone-acetaminophen 5-325 mg tablet 1 tab PO BID MDD 2 PRN (Reason: pain) Qty: 14 0RF hydrocodone-acetaminophen 5-325 mg tablet 1 tab PO BID MDD 2 PRN (Reason: pain) Qty: 14 0RF hydrocodone-acetaminophen 5-325 mg tablet 1 tab PO BID MDD 2 PRN (Reason: pain) Qty: 14 0RF hydrocodone-acetaminophen 5-325 mg tablet 1 tab PO BID MDD 2 PRN (Reason: pain) Qty: 14 0RF hydrocodone-acetaminophen 5-325 mg tablet 1 tab PO QDAY MDD 10mg hydrocodone Qty: 30 0RF hydrocodone-acetaminophen 5-325 mg tablet 1 tab PO BID MDD 10mg hydrocodone Qty: 30 0RF Rx Instructions: Take 1 tablet twice daily as needed for pain hydrocodone-acetaminophen 5-325 mg tablet 1 tab PO BID MDD 10 mg hydrocodone PRN (Reason: pain) Qty: 30 0RF hydrocodone-acetaminophen 5-325 mg tablet 1 tab PO Q8H MDD 15mg hydrocodone PRN (Reason: pain) Qty: 90 0RF gabapentin 600 mg Tablet 600 mg PO BID atorvastatin 10 mg Tablet 10 mg PO QDAY carvedilol 3.125 mg tablet 3.125 mg PO BID ferrous sulfate [Iron (ferrous sulfate)] 325 mg (65 mg iron) Tablet 325 mg PO QDAY Januvia 25 mg Tablet 25 mg PO QDAY duloxetine 20 mg Capsule, Delayed Rel Sprinkle 20 mg PO DAILY hydrocodone-acetaminophen 5-325 mg tablet 1 tab PO BID MDD 2 PRN (Reason: pain) Qty: 14 0RF Referrals: No Primary/Family,Physician [Primary Care Provider] - In 1 week Problem List Clinical Impression: Diabetes mellitus with hyperglycemia, Diabetic neuropathy, Bilateral hand numbness Patient/Caregiver Discharge Instructions Education Materials: Diabetic Neuropathy Print Language: Sudanese Stand Alone Forms: Marilyn Award Info., Patient Portal Info Letter PA/STEAM CONDITIONER OPERATOR Supervising Physician PA/STEAM CONDITIONER OPERATOR Supervising Physician: Dr. Posada
== END 2025-08-25 23:07 | disposition home or self-care (01) ==
PROVIDERS: Nurse Practitioner Family; Emergency Provider Emergency Medicine
DX: E11.40 Type 2 diabetes mellitus with diabetic neuropathy, unspecified (principal); E03.9 Hypothyroidism, unspecified; E11.65 Type 2 diabetes mellitus with hyperglycemia; Z79.84 Long term (current) use of oral hypoglycemic drugs; Z79.891 Long term (current) use of opiate analgesic; Z79.899 Other long term (current) drug therapy
CPT/HCPCS: 36415; 70450; 80053; 85025; 99283

== ENCOUNTER 2025-09-12 09:09 | Outpatient (RCR) | payer OTHER, MEDICAID, SELFPAY | END 2025-09-14 23:59 | disposition home or self-care (01) | LOC: SWHD 09:09 | PROVIDERS: PCP Family Medicine; Referring Provider Family Medicine; Visit Provider Student in an Organized Health Care Education/Training Program | DX: I96 Gangrene, not elsewhere classified (principal); E11.621 Type 2 diabetes mellitus with foot ulcer; L97.526 Non-pressure chronic ulcer of other part of left foot with bone involvement without evidence of necrosis; S98.912D Complete traumatic amputation of left foot, level unspecified, subsequent encounter; X58.XXXD Exposure to other specified factors, subsequent encounter; X58.XXXA Exposure to other specified factors, initial encounter; S91.104A Unspecified open wound of right lesser toe(s) without damage to nail, initial encounter; L89.312 Pressure ulcer of right buttock, stage 2; Z79.4 Long term (current) use of insulin; I10 Essential (primary) hypertension; M86.8X7 Other osteomyelitis, ankle and foot; E11.52 Type 2 diabetes mellitus with diabetic peripheral angiopathy with gangrene | CPT/HCPCS: 11042; 11045; 97597; 82962; 99212; 99213; 99214; A9270; G0277; G0463 ==

== ENCOUNTER → 2025-09-26 | Outpatient (CLI) | payer OTHER, SELFPAY | END | disposition home or self-care (01) | LOC: SWHD 09:22 | PROVIDERS: PCP Family Medicine; Referring Provider Family Medicine; Visit Provider Student in an Organized Health Care Education/Training Program | DX: I96 Gangrene, not elsewhere classified (principal); E11.621 Type 2 diabetes mellitus with foot ulcer; L89.312 Pressure ulcer of right buttock, stage 2; T81.89XA Other complications of procedures, not elsewhere classified, initial encounter; S88.111A Complete traumatic amputation at level between knee and ankle, right lower leg, initial encounter; X58.XXXA Exposure to other specified factors, initial encounter; Z79.4 Long term (current) use of insulin; I10 Essential (primary) hypertension; E11.52 Type 2 diabetes mellitus with diabetic peripheral angiopathy with gangrene | CPT/HCPCS: 99212; G0463 ==

== ENCOUNTER → 2025-10-03 | Outpatient (CLI) | payer OTHER, SELFPAY | END | disposition home or self-care (01) | LOC: SWHD 09:09 | PROVIDERS: PCP Family Medicine; Referring Provider Family Medicine; Visit Provider Student in an Organized Health Care Education/Training Program | DX: I96 Gangrene, not elsewhere classified (principal); E11.621 Type 2 diabetes mellitus with foot ulcer; T81.89XA Other complications of procedures, not elsewhere classified, initial encounter; S88.111A Complete traumatic amputation at level between knee and ankle, right lower leg, initial encounter; X58.XXXA Exposure to other specified factors, initial encounter; Z79.4 Long term (current) use of insulin; I10 Essential (primary) hypertension; E11.52 Type 2 diabetes mellitus with diabetic peripheral angiopathy with gangrene; L97.512 Non-pressure chronic ulcer of other part of right foot with fat layer exposed | CPT/HCPCS: 97597; A9270 ==

== ENCOUNTER → 2025-10-17 | Outpatient (CLI) | payer OTHER, SELFPAY | END | disposition home or self-care (01) | PROVIDERS: PCP Family Medicine; Referring Provider Family Medicine; Visit Provider Student in an Organized Health Care Education/Training Program | DX: I96 Gangrene, not elsewhere classified (principal); E11.621 Type 2 diabetes mellitus with foot ulcer; L89.312 Pressure ulcer of right buttock, stage 2; T81.89XA Other complications of procedures, not elsewhere classified, initial encounter; S88.111A Complete traumatic amputation at level between knee and ankle, right lower leg, initial encounter; X58.XXXA Exposure to other specified factors, initial encounter; Z79.4 Long term (current) use of insulin; I10 Essential (primary) hypertension; E11.52 Type 2 diabetes mellitus with diabetic peripheral angiopathy with gangrene | CPT/HCPCS: 97597; A9270 ==

== ENCOUNTER 2025-10-22 10:02 | Emergency (ER) | payer OTHER, MEDICAID, SELFPAY ==
--- NOTE | 2025-10-22 10:36 | EKG_ITS ---
[facility] Test Date: 2025-10-22 Pat Name: KEO KIRAN Department: Room: - Gender: Female Mercerizing Range Controller: : 1955 Requested By: Fernando Rehman Order Number: [id number] Reading MD: Fernando Rehman Measurements Intervals [place] Rate: 79 P: 26 KS: 134 QRS: -67 QRSD: 118 T: 4 QT: 390 QTc: 448 Interpretive Statements SINUS RHYTHM LOW QRS VOLTAGE IN PRECORDIAL LEADS [QRS DEFLECTION < 1.0 mV IN CHEST LEADS] INCOMPLETE RIGHT BUNDLE BRANCH BLOCK [90+ ms QRS DURATION, TERMINAL R IN V1/V2, 40+ ms S IN I/aVL/V4/V5/V6] LEFT ANTERIOR FASCICULAR BLOCK [QRS AXIS <= -45, QR IN I, RS IN II] POSSIBLE ANTERIOR MYOCARDIAL INFARCTION , PROBABLY OLD [30 ms Q WAVE IN V3/V4, OR R < 0.2 mV IN V4] INFERIOR MYOCARDIAL INFARCTION , PROBABLY OLD [40+ ms Q WAVE AND/OR ST/T ABNORMALITY IN II/aVF] Compared to ECG 11/03/2024 04:22:47 Low QRS voltage now present Incomplete right bundle-branch block now present Myocardial infarct finding now present Right bundle-branch block no longer present /store/S0/[id number].pdf
--- NOTE | 2025-10-22 10:36 | XR_ITS ---
EXAMINATION: AP chest single view TECHNIQUE: AP portable upright chest single view Date and time: October,, 1115 hours INDICATIONS: Chest pain today FINDINGS: Normal heart size Lungs are clear. Minor subsegmental atelectasis left base Moderate osteopenia IMPRESSION: Minor subsegmental atelectasis left base
--- NOTE | 2025-10-22 10:38 | PD.EDRME ---
Rapid Medical Screening Exam RME Arrival date/time: 10/22/25 10:02 70-year-old female with a history of hyperlipidemia, hypertension, a left-sided below the knee amputation, hypothyroidism, type 2 diabetes, presents to the emergency room with a chief complaint of chest pain, generalized weakness, and right sided rib pain x 1 week I have greeted and performed a focused initial assessment of this patient. A comprehensive ED assessment and evaluation of the patient, analysis of all test results, and completion of the medical decision making process will be conducted by additional ED providers. Chief Complaint: Abdominal Pain Time Seen by Provider: 10/22/25 10:25 Vital signs reviewed by provider: Yes Exam: The patient has clear bilateral lung sounds there is no wheezing or any abnormal breath sounds The patient has a strong and regular rhythm S1 and S2 noted The patient has a left sided below the knee amputation. Clinical Impression: Hypotension, weakness, dehydration, anemia
[2025-10-22 10:40] VITALS: BP 82/39; PULSE 89; RESP 16; TEMP 36.8; O2SAT 99
[2025-10-22 10:57] VITALS: BMI 21.7
[2025-10-22 11:00] VITALS: BP 146/69; PULSE 79; RESP 19; O2SAT 94
[2025-10-22 11:06] LABS: Basophils # (Auto) 0.1 Thou/mm3 (0.0-0.2); Basophils % (Auto) 1 % (0-2.5); Eosinophils # (Auto) 0.3 Thou/mm3 (0.0-0.5); Eosinophils % (Auto) 2 % (0-10); Hematocrit 39.6 % (36.0-46.0); Hemoglobin 12.3 g/dL (12.0-16.0); Immature Granulocytes Auto 0.24 Thou/mm3 (0.00-0.00); Lymphocytes # (Auto) 2.5 Thou/mm3 (1.0-4.8); Lymphocytes % (Auto) 15 % (10-50); Mean Corpuscular HGB Conc 31.1 g/dl (31.0-37.0); Mean Corpuscular Hemoglobin 27.8 pg (25.0-35.0); Mean Corpuscular Volume 90 fL (80-100); Monocytes # (Auto) 0.8 Thou/mm3 (0.0-0.8); Monocytes % (Auto) 5 % (0-12); Neutrophils # (Auto) 12.6 Thou/mm3 (1.8-7.7); Neutrophils % (Auto) 76 % (37-80); Nucleated Red Blood Cell # 0.00 Thou/mm3 (0.00-0.00); Nucleated Red Blood Cell % 0 /100 WBC (0); Platelet Count 397 Thou/mm3 (140-440); RDW Standard Deviation 50.5 fL (36.4-46.3); Red Blood Count 4.42 Miln/mm3 (4.00-5.20); White Blood Count 16.6 Thou/mm3 (3.6-11.0)
[2025-10-22 11:17] LABS: Collection Type, Urine Clean Catch
--- NOTE | 2025-10-22 11:17 | PD.EDABDPN ---
ED Abdominal Pain RME/HPI General Chief Complaint: Abdominal Pain Stated complaint: FLANK PAIN Time seen by provider: 10/22/25 10:25 Arrival date/time: 10/22/25 10:02 RME / HPI RME / HPI narrative: 10/22/25 10:02 70-year-old female with a history of hyperlipidemia, hypertension, a left-sided below the knee amputation, hypothyroidism, type 2 diabetes, presents to the emergency room with a chief complaint of chest pain, generalized weakness, and right sided rib pain x 1 week I have greeted and performed a focused initial assessment of this patient. A comprehensive ED assessment and evaluation of the patient, analysis of all test results, and completion of the medical decision making process will be conducted by additional ED providers. DR. BRADY MAIN ED EVALUATION: 70 year old female with history of hypertension, diabetes, hyperlipidemia, left foot osteomyelitis s/p left BKA, hypothyroidism, GERD presents to the ED for evaluation of right flank pain and dysuria beginning 1 month ago and worsening this morning. Described the pain as aching in sensation, rating 7/10 in severity. Additionally reports right-sided numbness that also began 1 month ago. Denies any fevers, chills, sweats, chest pain, cough, shortness of breath, hematuria. adds the patient also ran out of her anxiety medications several days ago and appears to be more anxious. Exam: The patient has clear bilateral lung sounds there is no wheezing or any abnormal breath sounds The patient has a strong and regular rhythm S1 and S2 noted The patient has a left sided below the knee amputation. Impression: Hypotension, weakness, dehydration, anemia Related Data Home Medications ?Medication ?Instructions ?Recorded ?Confirmed atorvastatin 10 mg tablet 10 mg PO QDAY 10/19/24 10/19/24 carvedilol 3.125 mg tablet 3.125 mg PO BID 10/19/24 10/19/24 duloxetine 20 mg capsule,delayed 20 mg PO DAILY 10/19/24 10/19/24 release sprinkle ferrous sulfate 325 mg (65 mg 325 mg PO QDAY 10/19/24 10/19/24 iron) tablet (Iron (ferrous sulfate)) gabapentin 600 mg tablet 600 mg PO BID 10/19/24 10/19/24 sitagliptin phosphate 25 mg tablet 25 mg PO QDAY 10/19/24 10/19/24 (Januvia) Previous Rx's ?Medication ?Instructions ?Recorded levothyroxine 88 mcg capsule 88 mcg PO QDAY #30 caps 12/03/23 metformin 1,000 mg tablet 1,000 mg PO BID #60 tabs 12/03/23 pantoprazole 40 mg tablet,delayed 40 mg PO QDAY #30 tabs 12/03/23 release (Protonix) balsam tammy-castor oil topical 1 applic top BID 30 days #60 grams 11/04/24 ointment (Venelex topical ointment) hydrocodone 5 mg-acetaminophen 325 1 tab PO BID PRN pain #14 tabs 11/16/25 mg tablet hydrocodone 5 mg-acetaminophen 325 1 tab PO BID PRN pain #14 tabs 11/22/25 mg tablet hydrocodone 5 mg-acetaminophen 325 1 tab PO BID PRN pain #14 tabs 11/22/25 mg tablet hydrocodone 5 mg-acetaminophen 325 1 tab PO BID PRN pain #14 tabs 11/22/25 mg tablet hydrocodone 5 mg-acetaminophen 325 1 tab PO BID PRN pain #14 tabs 11/22/25 mg tablet hydrocodone 5 mg-acetaminophen 325 1 tab PO QDAY #30 tabs 11/29/25 mg tablet hydrocodone 5 mg-acetaminophen 325 1 tab PO BID #30 tabs 12/13/25 mg tablet hydrocodone 5 mg-acetaminophen 325 1 tab PO BID PRN pain #30 tabs 01/03/25 mg tablet hydrocodone 5 mg-acetaminophen 325 1 tab PO Q8H PRN pain #90 tabs /10/25 mg tablet cephalexin 500 mg capsule 1,000 mg (2 x 500 mg) PO BID 7 10/22/25 days #28 caps Allergies Allergy/AdvReac Type Severity Reaction Status Date / Time No Known Allergies Allergy Verified 08/25/25 18:50 Review of Systems Review of Systems Systems Reviewed: All systems reviewed, normal except as documented Past Medical History Past Medical History NEUROLOGIC: Positive Neurological Disorders and Parkinson's Disease CARDIAC: Positive Hypercholesterolemia and Hypertension GASTROINTESTINAL: Positive Gastrointestinal Disorders, Gastrointestinal Bleed and Gastroesophageal Reflux Disease GENITOURINARY: Positive Genitourinary Disorders and Kidney Stones REPRODUCTIVE: Positive Previous Pregnancies MUSCULOSKELETAL: Positive Musculoskeletal Disorders and Arthritis ENT: Positive Cataracts ENDOCRINE: Positive Endocrine Disorders, Diabetes Mellitus Type 2 and Hypothyroidism HEMATOLOGIC: Positive Blood Disorders and Anemia PSYCHO/SOCIAL: Positive Depression and Anxiety OTHER HISTORY: Positive Hospitalization, Falls, Blood Transfusions, Chicken Pox and Measles Family History FAMILY HISTORY: Positive Family Cardiac Disorders and Family Surgery Surgical History SURGICAL: Positive Bowel Surgery Social History SMOKING STATUS: Never smoker SECOND HAND EXPOSURE: No SUBSTANCE USE: does not use ED Exam Narrative Physical exam: Generally patient is alert and a mild distress secondary to right flank pain, heart regular rate and rhythm, lungs clear to auscultation equal bilaterally, abdomen soft bowel sounds present nondistended suprapubic abdominal tenderness without rebound, musculoskeletal exam showed patient had mild right-sided costovertebral angle tenderness., Extremities show no edema, neurologic exam shows Hydro Coma Scale of 15 without focal motor deficit. Course Quality Measures none Orders Category Date Time Status CT Screening NOW Care 10/22/25 11:52 Active EKG (ED ONLY) *Do not use* NOW Care 10/22/25 10:[address] abdomen pelvis w con Stat Exams 10/22/25 11:52 Completed EKG (ED Only) Stat Exams 10/22/25 10:36 Draft XR chest 1V portable Stat Exams 10/22/25 10:36 Completed B-Type Natriuretic Peptide Stat Lab 10/22/25 10:52 Completed CBC Stat Lab 10/22/25 10:52 Completed Comprehensive Metabolic Panel Stat Lab 10/22/25 10:52 Completed Free T4 (Free Thyroxine) Stat Lab 10/22/25 10:52 Completed Magnesium Stat Lab 10/22/25 10:52 Completed Partial Thromboplastin Time Stat Lab 10/22/25 10:52 Completed Prothrombin Time with INR Stat Lab 10/22/25 10:52 Completed TSH [Thyroid Stimulating Hormone] Stat Lab 10/22/25 10:52 Completed Troponin I Stat Lab 10/22/25 10:52 Completed Type and Screen Stat Lab 10/22/25 10:52 Completed Urinalysis, C/S if Indicated Stat Lab 10/22/25 11:09 Completed Urine Culture Stat Lab 10/22/25 11:09 Received cefTRIAXone/D5w 1gm IV premix [Rocephin/D5w 1gm IV Med 10/22/25 11:51 Discontinued premix] 1 gm in 50 ml IV X1 Vital Signs Vital signs: Vital Signs Temperature 98.2 F 10/22/25 10:40 Pulse Rate 89 10/22/25 10:40 Respiratory Rate 16 10/22/25 10:40 Blood Pressure 82/39 L 10/22/25 10:40 Pulse Oximetry (%) 99 10/22/25 10:40 Oxygen Delivery Method Room Air 10/22/25 10:40 Pulse ox is 99% on room air which is adequate. Abdominal Pain MDM MDM Narrative MDM Narrative:: Buddy Delmyjose Chávez am scribing for and in the presence of Dr. Brady. Patient had a leukocytosis of 16,000 with an infected urine. CT scan done of the abdomen and pelvis with IV contrast showed multiple chronic problems but nothing acute including no evidence of ureterolithiasis or hydronephrosis. Patient was given Rocephin 1 g IV. She will be discharged on cephalexin to be taken as prescribed. She may use Tylenol and ibuprofen for pain. Follow-up with her doctor. Return to ER as needed or if condition worsens. Patient is to continue all current medications including the levothyroxine for her hypothyroidism. EKG does show normal sinus rhythm at rate of 79 with an incomplete right bundle branch block. Q waves are present in the inferior leads. No ST segment change. Patient data External records reviewed:: [facility] previous records Clinical information provided by:: patient and spouse Social determinants that could affect healthcare access:: mental health (anxiety ) Patient has the following chronic illnesses:: hypertension, diabetes, hyperlipidemia, left foot osteomyelitis s/p left BKA, hypothyroidism, GERD How is presenting disease/condition affected by chronic disease/condition?: exacerbated by Evaluation data The following diagnostics were reviewed and interpreted by me:: lab results, radiology exam(s) and EKG tracing(s) Lab and/or radiology exams considered but not ordered:: None Interpretation Summary: Ordering Physician: Fernando Hernandez Date of Service: 10/22/25 Procedure(s): XR chest 1V portable Accession Number(s): [id number] cc: Fernando Hernandez; Jag Henry MD~ EXAMINATION: AP chest single view TECHNIQUE: AP portable upright chest single view Date and time: October,, 1115 hours INDICATIONS: Chest pain today FINDINGS: Normal heart size Lungs are clear. Minor subsegmental atelectasis left base Moderate osteopenia IMPRESSION: Minor subsegmental atelectasis left base Dictated By: Jag Henry MD Signed By: <Electronically signed by Jag Henry MD in [place]> 10/22/25 1137 Medications / Prescriptions Medications or Prescriptions considered but not ordered:: None Medication administrations:: Medication Administration History Discontinued Medications Ceftriaxone Sodium/Dextrose (Rocephin/D5w 1gm Iv Premix) 1 gm in 50 mls @ 100 mls/hr IV X1 ONE Stop: 10/22/25 12:20 Last Infusion: 10/22/25 12:41 Dose: Infused Documented By: Admin: 10/22/25 12:11 Dose: 100 mls/hr Documented By: SALMA See above Consultations Consultation(s) initiated? (list below): No Diagnosis Differential diagnosis abdominal pain: abdominal pain, calculus of kidney and other (Pyelonephritis, UTI, anxiety ) Most likely diagnosis given after review of the tests above:: None Admission Indicated Admission indicated?: not indicated Admission Request Was there a request for admission?: No Disposition Plan Disposition Plan: Discharge Discharge Attestation Discharge Attestation: The patient and all family members were given an opportunity to ask questions and understood the discharge instructions. Discharge instructions specifically effects, indications for sooner follow up or return to the emergency department, and the expected course of current diagnosis. Patient condition: Stable Discharge Plan Plan Patient Disposition: HOME (Self Care) Prescriptions/Referrals Prescriptions/Med Rec: New cephalexin 500 mg capsule 1,000 mg PO BID 7 Days Qty: 28 0RF No Action pantoprazole [Protonix] 40 mg tablet,delayed release (DR/EC) 40 mg PO QDAY Qty: 30 0RF metformin 1,000 mg tablet 1,000 mg PO BID Qty: 60 0RF levothyroxine 88 mcg capsule 88 mcg PO QDAY Qty: 30 0RF balsam tammy-castor oil [Venelex] Ointment 1 applic top BID 30 Days Qty: 60 1RF hydrocodone-acetaminophen 5-325 mg tablet 1 tab PO BID MDD 2 PRN (Reason: pain) Qty: 14 0RF hydrocodone-acetaminophen 5-325 mg tablet 1 tab PO BID MDD 2 PRN (Reason: pain) Qty: 14 0RF hydrocodone-acetaminophen 5-325 mg tablet 1 tab PO BID MDD 2 PRN (Reason: pain) Qty: 14 0RF hydrocodone-acetaminophen 5-325 mg tablet 1 tab PO BID MDD 2 PRN (Reason: pain) Qty: 14 0RF hydrocodone-acetaminophen 5-325 mg tablet 1 tab PO QDAY MDD 10mg hydrocodone Qty: 30 0RF hydrocodone-acetaminophen 5-325 mg tablet 1 tab PO BID MDD 10mg hydrocodone Qty: 30 0RF Rx Instructions: Take 1 tablet twice daily as needed for pain hydrocodone-acetaminophen 5-325 mg tablet 1 tab PO BID MDD 10 mg hydrocodone PRN (Reason: pain) Qty: 30 0RF hydrocodone-acetaminophen 5-325 mg tablet 1 tab PO Q8H MDD 15mg hydrocodone PRN (Reason: pain) Qty: 90 0RF gabapentin 600 mg Tablet 600 mg PO BID atorvastatin 10 mg Tablet 10 mg PO QDAY carvedilol 3.125 mg tablet 3.125 mg PO BID ferrous sulfate [Iron (ferrous sulfate)] 325 mg (65 mg iron) Tablet 325 mg PO QDAY Januvia 25 mg Tablet 25 mg PO QDAY duloxetine 20 mg Capsule, Delayed Rel Sprinkle 20 mg PO DAILY hydrocodone-acetaminophen 5-325 mg tablet 1 tab PO BID MDD 2 PRN (Reason: pain) Qty: 14 0RF Referrals: Sai George MD [Primary Care Provider] - In 1 week Problem List Clinical Impression: Acute pyelonephritis Patient/Caregiver Discharge Instructions Education Materials: Kidney Infec Dc Additional Instructions: Continue all current medications. Take the antibiotic as prescribed. Follow-up with your doctor. Return to ER as needed or if condition worsens. Print Language: Kiswahili Stand Alone Forms: Marilyn Award Info., Patient Portal Info Letter
[2025-10-22 11:23] LABS: INR 1.0 (0.9-1.3); Partial Thromboplastin Time 26.2 Seconds (22.0-36.0); Prothrombin Time 10.3 Seconds (9.0-12.2)
[2025-10-22 11:25] LABS: B-Type Natriuretic Peptide 69 pg/mL (0-100)
[2025-10-22 11:27] LABS: Alanine Aminotransferase 8 U/L (10-49); Albumin, Serum 3.7 gm/dL (3.4-4.8); Albumin/Globulin Ratio 1.4 (1.2-2.2); Alkaline Phosphatase 101 U/L (46-116); Anion Gap 14 (7-16); Aspartate Amino Transferase 23 U/L (0-34); BUN/Creatinine Ratio 18 Ratio (12-20); Bilirubin,Total < 0.2 mg/dL (0.3-1.2); Blood Urea Nitrogen 11 mg/dL (9-23); Calcium 9.1 mg/dL (8.3-10.6); Calcium (Corrected) 9.3 mg/dL (8.5-10.1); Carbon Dioxide 20.9 mMol/L (20.0-31.0); Chloride 107 mMol/L (98-107); Creatinine (Component) 0.6 mg/dL (0.6-1.3); Estimated Creatinine Clearance 71.1 mL/min (>60); Free T4 (Free Thyroxine) 1.40 ng/dL (0.89-1.76); Globulin 2.6 gm/dL (2.3-3.5); Glucose 188 mg/dL (74-106); Magnesium 1.4 mg/dL (1.6-2.6); Osmolality,Calculated 287 (275-295); Potassium 4.0 mMol/L (3.4-5.1); Sodium 142 mMol/L (136-145); Thyroid Stimulating Hormone 7.69 uIU/mL (0.55-4.78); Total Protein 6.3 gm/dL (5.7-8.2); Troponin I 0.022 ng/mL (0.0-0.045); eGFR > 60 See Note
[2025-10-22 11:32] LABS: Bacteria,Urine 3+; Bilirubin,Urine Negative (Negative); Blood,Urine Trace (Negative); Budding Yeast,Urine Present; Clarity,Urine Turbid (Clear/Hazy); Color,Urine Yellow (Lt Yel-Yel); Glucose, Urine Negative (Negative); Ketones,Urine Trace (Negative); Leukocyte Esterase,Urine Positive (Negative); Nitrite,Urine Negative (Negative); PH,Urine 5.5 (5.0-7.0); Protein,Urine 1+ (Neg - Trace); RBC,Urine 7 /hpf (0-3); Specific Gravity,Urine 1.026 (1.001-1.035); Squamous Epithelial Cell,Urine 1 /hpf (0-5); Urobilinogen,Urine 2.0 mg/dL (0.0-1.0); WBC,Urine 533 /hpf (0-5)
[2025-10-22 11:34] LABS: Culture Indicated,Urine Yes
--- NOTE | 2025-10-22 11:52 | XR_ITS ---
Examination: CT abdomen with intravenous contrast CT pelvis with intravenous contrast 2-D coronal reconstructions 2-D sagittal reconstructions Date and time of exam: Exam performed on 10/22/2025 at 12:36 p.m. Comparison study on 11/02/2024 Indication: Abdominal pain and right-sided flank pain today CTDI: vol (mGy) 6.42 DLP: (mGycm) 359 Technique: Multiple axial sections of the abdomen and pelvis have been obtained. 64 slice high-resolution scanner used. 3 mm axial sections have been obtained, post intravenous injection of Isovue 370, 60 mL were injected. 2-D sagittal, coronal reconstructions obtained. Low dose protocols were performed. One or more of the following dose reduction techniques were used; automated exposure control, adjustment of the mA and/or KV according to patient size, use of iterative reconstruction technique. Findings: There is an extremely minimal area of interstitial infiltrate and pleural thickening involving the medial segment right middle lobe, these findings were present on the previous CT exam hence they relate to a small area of chronic postinflammatory fibrosis most likely there are several curvilinear strands of thin interstitial density/fibrosis in the base of the left lower lobe, I believe that these were all present on the previous study, as well. In the abdomen and pelvis, the size and appearance and enhancement pattern of the liver and spleen are normal. Both adrenal glands appear normal. The entire pancreas is well-seen and appears normal. There is a prominent hiatal hernia in the lower mediastinum, and there is evidence of previous gastric bypass surgery. These findings are unchanged since the previous exam. The gallbladder is moderately enlarged, but its size and appearance are unchanged since the prior CT on 11/02/2024. No retroperitoneal lymphadenopathy is seen anywhere. The peripheral margins of both right and left kidneys are significantly lobulated, and there is very advanced atherosclerotic calcification involving the main renal arteries and branch renal arteries involving all portions of both kidneys. This is also unchanged. No renal calculi are identified. There is a small benign cyst in the lower right kidney There is a moderate-sized gastric hiatal hernia in the lower mediastinum. There are also surgical clips present, with what appears to be a gastro jejunostomy. There appears to be some mild intramural thickening of the proximal jejunum, but I believe this area had an identical appearance on the previous CT exam. There are also a few surgical clips noted around the margins of a loop of jejunum in the mid-upper abdomen just to the left of midline. No other abnormalities are seen in the abdomen and the pelvis there is very heavy vascular calcification involving the arcuate arteries of the uterus extensively. There is minimal thickening of the wall of the urinary bladder. There is extremely heavy atherosclerotic calcification involving all visible arteries in the abdomen and pelvis. In the spine, there is major degenerative disc space narrowing with vacuum phenomenon seen at L2-3 with anterior wedge compression of the body of L3, these findings are stable and unchanged. Vacuum phenomenon are seen in several of the intervertebral discs in the upper lumbar spine and at L4-5 of no significance. There is a diffuse annular disc bulge at L4-5 and there is minimal spondylolisthesis. These findings are unchanged IMPRESSION: 1. There is a moderate size gastric hiatal hernia in the lower mediastinum, surgical clips are seen in this region and also regional to a previous surgical gastrojejunostomy. 2. There is moderate enlargement of the gallbladder, this is unchanged from the previous CT, and the gallbladder wall appears perfectly normal and no stones are identified. The appearance is felt to be essentially normal in this patient. 3. There is lobulation of the contour of both kidneys with major vascular calcification involving all renal arteries on both sides, there is a tiny benign cyst in the lower right kidney 4 there are some additional small surgical clips seen around a group of jejunal loops in the mid-upper abdomen slightly to the left of midline. This area otherwise appears all right 5. There are chronic degenerative and posttraumatic changes seen throughout the lumbar spine these are stable and unchanged. 6. There is narrowing of the joint space in both right and left hip joints with surrounding osteophyte formation, these degenerative changes are worse in the right hip. 7 there are some extremely minimal interstitial densities seen in both lower lung zones felt to be stable and unchanged
[2025-10-22] MEDS: cefTRIAXone/D5w 1gm IV premix 1 GM/50 ML BAG IV (12:11)
[2025-10-22 14:23] VITALS: BP 146/77; PULSE 86; RESP 18; TEMP 36.7; O2SAT 95
== END 2025-10-22 14:24 | disposition home or self-care (01) ==
PROVIDERS: Nurse Practitioner Family; Emergency Provider Emergency Medicine; PCP Family Medicine; Referring Provider Emergency Medicine
DX: N10 Acute pyelonephritis (principal); J98.11 Atelectasis; I45.10 Unspecified right bundle-branch block; I44.4 Left anterior fascicular block; I10 Essential (primary) hypertension; E78.00 Pure hypercholesterolemia, unspecified
CPT/HCPCS: 36415; 71045; 74177; 80053; 81001; 83735; 83880; 84439; 84443; 84484; 85025; 85610; 85730; 86850; 86900; 86901; 87077; 87086; 87186; 93005; 96365; 99284; A4649; J0696; Q9967

== ENCOUNTER 2025-11-14 07:57 | Outpatient (RCR) | payer OTHER, SELFPAY | END 2025-11-14 23:59 | disposition home or self-care (01) | LOC: SWHD 07:57 | PROVIDERS: PCP Family Medicine; Referring Provider Family Medicine; Visit Provider Student in an Organized Health Care Education/Training Program | DX: I96 Gangrene, not elsewhere classified (principal); E11.621 Type 2 diabetes mellitus with foot ulcer; L89.312 Pressure ulcer of right buttock, stage 2; T81.89XA Other complications of procedures, not elsewhere classified, initial encounter; S88.111A Complete traumatic amputation at level between knee and ankle, right lower leg, initial encounter; X58.XXXA Exposure to other specified factors, initial encounter; Z79.4 Long term (current) use of insulin; I10 Essential (primary) hypertension; E11.52 Type 2 diabetes mellitus with diabetic peripheral angiopathy with gangrene | CPT/HCPCS: 97597; 82962; 99214; A9270; G0277; G0463 ==